=== PATIENT | female | born 1935 | race Caucasian/White ===

== ENCOUNTER 2016-08-19 05:24 | Emergency (ER) | payer MEDICARE, SELFPAY ==
--- NOTE | 2016-08-19 06:15 | EDM.PDOC ---
ED HPI SEIZURE COMPLAINT <Nic Talley - Last Filed: 08/19/16 10:21> - General Source of Information: Reports: Patient, Family (Son), RN notes reviewed History Limitations: Reports: No limitations <Aayush Campbell - Last Filed: 08/19/16 19:12> - General Chief Complaint: Syncope Stated Complaint: [facility] Time Seen by Provider: 08/19/16 05:29 - History of Present Illness INITIAL COMMENTS - FREE TEXT/NARRATIVE: The patient states that she underwent a bronchoscopy with lung biopsy yesterday , 08/18/[address] Choudhury at [facility], in order to determine the type of lung cancer that she has. The patient was kept NPO after midnight, 2016. She had a normal dinner last night. Around 05:00 this morning, the patient had to go to the bathroom. She removed her oxygen, which she usually takes at 2L per NC continuously. She replaced her oxygen when she left the bathroom, but on her way back, she states that she felt confused. As she approached the couch, she semi-sat, semi-fell onto the couch, and was then unresponsive for about 5 minutes. EMS was called, however, the police arrived first. The patient awoke when her name was called by the police. She has been neurologically normal since. Here in the ED, the patient desaturates to 84% on room air, but with no mental status changes or neurologic deficits. The patient was returned to 2L per NC, resulting in an SpO2 of 97%. (Aayush Campbell) - Related Data Allergies/ADRs: Allergies Allergy/AdvReac Type Severity Reaction Status Date / Time shellfish derived Allergy Severe Airway Verified 12/21/14 14:52 Tightness egg Allergy Itching Verified 12/21/14 14:52 ciprofloxacin AdvReac Syncope Verified 12/21/14 14:52 escitalopram oxalate AdvReac Syncope Verified 12/21/14 14:52 [From Lexapro] yogart Allergy Severe Swelling Uncoded 12/21/14 14:52 A&W root beer Allergy Hives Uncoded 12/21/14 14:52 oxalate Allergy Other Uncoded 12/21/14 14:43 Home Meds: Home Meds Albuterol/Ipratropium [Combivent Respimat] 20 - 100 mcg INH QID 12/21/14 [ History] Ascorbic Acid [Vitamin C] 1 tab PO DAILY 12/21/14 [History] Aspirin [Halfprin] 81 mg PO BRK 12/21/14 [History] Budesonide [Pulmicort] 0.5 - 2 mg INH BID 12/21/14 [History] Multivitamin [Multivitamins] 1 tab PO DAILY 12/21/14 [History] Sertraline [Zoloft] 50 mg PO DAILY 12/21/14 [History] Vitamin E (dl, acetate) [Vitamin E] 1 cap PO DAILY 12/21/14 [History] Albuterol [Proventil Neb Soln] 1 ampule NEB TID 08/19/16 [History] Ergocalciferol (Vitamin D2) [Vitamin D] 400 unit PO DAILY 08/19/16 [History] Ferrous Sulfate [Iron] 325 mg PO DAILY 08/19/16 [History] Past Medical History Cardiovascular History: Reports: Heart Failure (untreated) Respiratory History: Reports: COPD Musculoskeletal History: Reports: Osteoarthritis Neurological History: Reports: CVA (lacunar infarcts) 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, Other (see below) (Epiglottis cancer) - Past Surgical History HEENT Surgical History: Reports: Tonsillectomy Other Cardiovascular Surgeries/Procedures: Prior cardiac arrest during labor and delivery Respiratory Surgical History: Reports: Lung Biopsies (08/18/2016) GI Surgical History: Reports: Appendectomy Female Surgical History: Reports: D&C (x 2 or 3), Tubal ligation <Aayush Campbell - Last Filed: 08/19/16 19:12> Social & Family History - Family History Family Medical History: Noncontributory - Tobacco Use Smoking Status *Q: Former Smoker Tobacco Use Within Last Twelve Months: No Years of Tobacco use: 45 Packs/Tins Daily: 0.8 Used Tobacco, but Quit: Yes Month Tobacco Last Used: 06/13/2008 Second Hand Smoke Exposure: Yes - Alcohol Use Alcohol Use History: No - Recreational Drug Use Recreational Drug Use: No - Living Situation & Occupation Living situation: Reports: , assisted living ([facility]) Occupation: retired <Aayush Campbell - Last Filed: 08/19/16 19:12> ED ROS GENERAL - Review of Systems Review Of Systems: See Below Constitutional: Reports: no symptoms HEENT: Reports: No symptoms Respiratory: Reports: No Symptoms Cardiovascular: Reports: No symptoms Endocrine: Reports: no symptoms GI/Abdominal: Reports: No symptoms : Reports: no symptoms Musculoskeletal: Reports: no symptoms Skin: Reports: no symptoms Neurological: Reports: No Symptoms Psychiatric: Reports: No symptoms Hematologic/Lymphatic: Reports: no symptoms Immunologic: Reports: no symptoms <Aayush Campbell - Last Filed: 08/19/16 19:12> - Physical Exam Exam: See Below Exam Limited By: No limitations General Appearance: alert, WD/WN, no apparent distress Eye Exam: bilateral eye: EOMI, other (cataracts) Ears: normal external exam, hearing grossly normal Nose: normal inspection, no blood Throat/Mouth: Normal inspection, Normal lips, Normal voice, No airway compromise Head Exam: atraumatic, normocephalic Neck: normal inspection, full range of motion Respiratory/Chest: no respiratory distress, lungs clear, normal breath sounds, no accessory muscle use Cardiovascular: normal peripheral pulses, regular rate, rhythm, no gallop, no JVD, no murmur, no rub GI/Abdominal: normal bowel sounds, soft, non tender, no organomegaly, no distention, no abnormal bruit, no mass (Female) Exam: Deferred Rectal (Female) Exam: Deferred Neuro Exam (Abbreviated): alert, oriented, CN II-XII intact, normal cognition, no motor/sensory deficits Back Exam: normal inspection, full range of motion, NT Extremities: normal inspection, normal range of motion, no pedal edema, normal capillary refill Psychiatric: normal affect Skin Exam: Warm, Dry, Intact, Normal color, No rash <Aayush Campbell - Last Filed: 08/19/16 19:12> EKG INTERPRETATION EKG Date: 08/19/16 Time: 06:21 Rhythm: NSR Rate (beats/min): 91 [place]: normal P-wave: present QRS: normal ST-T: normal QT: normal Comparison: NA - no prior EKG <Aayush Campbell - Last Filed: 08/19/16 19:12> Course <Nic Talley - Last Filed: 08/19/16 10:21> <Aayush Campbell - Last Filed: 08/19/16 19:12> - Vital Signs Last Recorded V/S: Last Vital Signs Temp 36.8 C 08/19/16 05:36 Pulse 91 08/19/16 10:45 Resp 16 08/19/16 10:45 BP 101/42 L 08/19/16 10:45 Pulse Ox 98 08/19/16 10:45 Orthostatic Blood Pressure [ 107/72 Standing] Orthostatic Blood Pressure [ 125/59 Sitting] Orthostatic Blood Pressure [ 109/55 Supine] (Nic Talley) (Aayush Campbell) - Orders/Labs/Meds Orders: Active Orders 24 hr Category Date Time Status EKG Documentation Completion [RC] STAT Care 08/19/16 06:00 Active Orthostatic Vital Signs [RC] STAT Care 08/19/16 06:00 Active Orthostatic Vital Signs [RC] STAT Care 08/19/16 07:47 Active RT Aerosol Therapy [RC] ASDIRECTED Care 08/19/16 10:23 Active (Nic Talley) (Aayush Campbell) Labs: Laboratory Tests 08/19/16 08/19/16 08/19/16 Range/Units 06:21 06:21 06:21 WBC 10.00 (3.98-10.04) K/mm3 RBC 3.36 L (3.98-5.22) M/mm3 Hgb 10.2 L (11.2-15.7) gm/L Hct 32.8 L (34.1-44.9) % MCV 97.6 H (79.4-94.8) fl MCH 30.4 (25.6-32.2) pg MCHC 31.1 L (32.2-35.5) g/dl RDW Std Deviation 47.8 H (36.4-46.3) fL Plt Count 283 (182-369) K/mm3 MPV 8.7 L (9.4-12.3) fl Neutrophils % (Manual) 77 H (40-60) % Band Neutrophils % 9 (0-10) % Lymphocytes % (Manual) 8 L (20-40) % Atypical Lymphs % 0 % Monocytes % (Manual) 4 (2-10) % Eosinophils % (Manual) 1 (0.7-5.8) % Basophils % (Manual) 1 (0.1-1.2) Platelet Estimate Adequate RBC Morph Comment Normal PT 9.8 (8.0-13.0) SECONDS INR 0.90 APTT 29 (22-36) SECONDS D-Dimer, Quantitative 0.95 H (0.19-0.59) mg/L Sodium 136 (136-145) mEq/L Potassium 5.0 (3.5-5.1) mEq/L Chloride 101 (98-107) mEq/L Carbon Dioxide 34 H (21-32) mEq/L Anion Gap 6.0 (5-15) BUN 24 H (7-18) mg/dL Creatinine 1.3 H (0.55-1.02) mg/dL Est Cr Clr Drug Dosing 26.91 mL/min Estimated GFR (MDRD) 40 (>60) mL/min BUN/Creatinine Ratio 18.5 H (14-18) Glucose 137 H (83-115) mg/dL Calcium 8.8 (8.5-10.1) mg/dL Magnesium 2.0 (1.8-2.4) mg/dl Total Bilirubin 0.2 (0.2-1.0) mg/dL AST 26 (15-37) U/L ALT 37 (14-59) U/L Alkaline Phosphatase 149 H (46-116) U/L Troponin I < 0.017 (0.00-0.056) ng/mL Total Protein 6.6 (6.4-8.2) g/dl Albumin 2.7 L (3.4-5.0) g/dl Globulin 3.9 gm/dL Albumin/Globulin Ratio 0.7 L (1-2) Urine Color (Yellow) Urine Appearance (Clear) Urine pH (5.0-8.0) Ur Specific Martin (1.005-1.030) Urine Protein (Negative) Urine Glucose (UA) (Negative) Urine Ketones (Negative) Urine Occult Blood (Negative) Urine Nitrite (Negative) Urine Bilirubin (Negative) Urine Urobilinogen (0.2-1.0) Ur Leukocyte Esterase (Negative) Urine RBC (0-5) /hpf Urine WBC (0-5) /hpf Ur Epithelial Cells (0-5) /hpf Urine Bacteria (FEW) /hpf Urine Mucus (FEW) /hpf 08/19/16 Range/Units 07:39 WBC (3.98-10.04) K/mm3 RBC (3.98-5.22) M/mm3 Hgb (11.2-15.7) gm/L Hct (34.1-44.9) % MCV (79.4-94.8) fl MCH (25.6-32.2) pg MCHC (32.2-35.5) g/dl RDW Std Deviation (36.4-46.3) fL Plt Count (182-369) K/mm3 MPV (9.4-12.3) fl Neutrophils % (Manual) (40-60) % Band Neutrophils % (0-10) % Lymphocytes % (Manual) (20-40) % Atypical Lymphs % % Monocytes % (Manual) (2-10) % Eosinophils % (Manual) (0.7-5.8) % Basophils % (Manual) (0.1-1.2) Platelet Estimate RBC Morph Comment PT (8.0-13.0) SECONDS INR APTT (22-36) SECONDS D-Dimer, Quantitative (0.19-0.59) mg/L Sodium (136-145) mEq/L Potassium (3.5-5.1) mEq/L Chloride (98-107) mEq/L Carbon Dioxide (21-32) mEq/L Anion Gap (5-15) BUN (7-18) mg/dL Creatinine (0.55-1.02) mg/dL Est Cr Clr Drug Dosing mL/min Estimated GFR (MDRD) (>60) mL/min BUN/Creatinine Ratio (14-18) Glucose (83-115) mg/dL Calcium (8.5-10.1) mg/dL Magnesium (1.8-2.4) mg/dl Total Bilirubin (0.2-1.0) mg/dL AST (15-37) U/L ALT (14-59) U/L Alkaline Phosphatase (46-116) U/L Troponin I (0.00-0.056) ng/mL Total Protein (6.4-8.2) g/dl Albumin (3.4-5.0) g/dl Globulin gm/dL Albumin/Globulin Ratio (1-2) Urine Color Yellow (Yellow) Urine Appearance Slt cloudy H (Clear) Urine pH 7.0 (5.0-8.0) Ur Specific Martin 1.020 (1.005-1.030) Urine Protein 2+ H (Negative) Urine Glucose (UA) Trace H (Negative) Urine Ketones Negative (Negative) Urine Occult Blood Negative (Negative) Urine Nitrite Negative (Negative) Urine Bilirubin Negative (Negative) Urine Urobilinogen 0.2 (0.2-1.0) Ur Leukocyte Esterase Negative (Negative) Urine RBC Not seen (0-5) /hpf Urine WBC 0-5 (0-5) /hpf Ur Epithelial Cells 0-5 (0-5) /hpf Urine Bacteria Many H (FEW) /hpf Urine Mucus Not seen (FEW) /hpf (Nic Talley) Meds: Medications Discontinued Medications Generic Name Dose Route Start Last Admin Trade Name Freq PRN Reason Stop Dose Admin Albuterol/Ipratropium 3 ml 08/19/16 10:23 08/19/16 10:32 Duoneb 3.0-0.5 Mg/3 Ml NEB 08/19/16 10:24 3 ml ONETIME ONE Administration Sodium Chloride 500 mls @ 1,000 mls/hr 08/19/16 06:57 08/19/16 07:18 Normal Saline IV 08/19/16 07:26 1,000 mls/hr .BOLUS ONE Administration Sodium Chloride 100 mls @ 60 mls/hr 08/19/16 07:45 08/19/16 08:03 Normal Saline IV 60 mls/hr ASDIRECTED FIDE Administration Sodium Chloride 1,000 mls @ 100 mls/hr 08/19/16 08:15 Normal Saline IV ASDIRECTED FIDE Iopamidol 100 ml 08/19/16 07:43 08/19/16 08:02 Isovue-370 (76%) IVPUSH 08/19/16 07:44 100 ml ONETIME ONE Administration Sodium Chloride 10 ml 08/19/16 07:43 08/19/16 08:02 Saline Flush FLUSH 08/19/16 07:44 10 ml ONETIME ONE Administration (Nic Talley) - Radiology Interpretation Free Text/Narrative:: Portable chest radiograph does not appear to demonstrate any acute changes. Cardiac silhouette is within normal limits. No pulmonary vascular congestion. There is likely a small right-sided pleural effusion, improved from prior chest radiograph dated 12/27/2014. No focal infiltrate. No pneumothorax. Hyperinflation and bilateral diaphragmatic flattening consistent with COPD noted. Formal read per the Radiologist pending. (Aayush Campbell) - Re-Assessments/Exams Free Text/Narrative Re-Assessment/Exam: 08/19/16 06:57 The patient is orthostatic. I will order an IV fluid bolus. 08/19/16 07:30 The patient's D-dimer has returned modestly elevated at 0.95. I discussed this with the patient and her grandson, and they would like to proceed with a CTA of the chest to rule out PE. 08/19/16 07:[address] Talley, and care of the patient turned over to him at this time, for change of shift. Urinalysis, CTA/chest results, repeat orthostatics after IV fluid bolus, and disposition pending. (Aayush Campbell) Free Text/Narrative Re-Assessment/Exam: 08/19/16 08:48 CT pulmonary angiogram has been completed. He does not reveal any evidence of pulmonary emboli. There are several small lymph nodes noted within the paratracheal region which remain within normal limits in size. Slightly large subcarinal lymph node seen measuring 2.0 cm. Enlarged left hilar lymph node seen measuring 2.1 cm one. There is a small right-sided pleural effusion which is unchanged from previous. Multiple subpleural nodules are seen in within the left chest left upper lung nodule measures 1 cm nodule within the superior segment of the left lower lung measures 1.4 cm. Smaller nodule noted within the lingula measuring 7 mm 2 adjacent smaller nodular densities seen more inferiorly within the lingula measuring 7 mm and smaller. This is suggestive of metastatic carcinoma. Biopsy was performed yesterday by bronchoscopy. At this time there is no evidence of DVT and she will be allowed home. We suspect she became hypoxic hypoxic and she took off her oxygen before she went into the bathroom and collapsed on the way out of the bathroom onto the chair without getting hurt. Probably developed transient hypercarbia to cause confusion. She has received IV fluids here. Although the nurses however up walking and see how she feels. 08/19/16 10:21 patient ate all her breakfast. She desaturates quite quickly on minimal exertion such as up to the bathroom she was down to 86% but when she is lying she's close to 100% on 2 L by nasal cannula. She'll be discharged home in the care of her son. No changes made to medications at this time (Nic Talley) Departure - Departure Time of Disposition: 10:22 Condition: fair <Nic Talley - Last Filed: 08/19/16 10:21> <Aayush Campbell - Last Filed: 08/19/16 19:12> - Departure Disposition: Home, Self-Care 01 Clinical Impression: Syncope due to orthostatic hypotension Instructions: Orthostatic Hypotension, Near-Syncope, [id number] Referrals: Deonte Candelario MD [Primary Care Provider] - Forms: ED Department Discharge Additional Instructions: Evaluation in the emergency department today in regards to syncopal event that occurred early this morning. As you're aware you got up to use the washroom. Oxygen off with little in the bathroom and then upon returning to the living room he collapsed in the chair with reported loss of consciousness transiently. It appears the cause of this was most likely due to a drop in blood pressure that occurred while and standing complicated by being off oxygen for short period of time. Due to recent bronchoscopy procedure done yesterday percussion a CT scan of the lungs was carried out today with contrast media to make sure that there was no problems. No blood clots within the lungs were identified or air leaks from the biopsy. Therefore at this time you're treated with intravenous fluids to provide rehydration and bring her blood pressure back up to normal. On reassessment you're no longer showing evidence of drop in blood pressure when you stand. At this time no changes are made to be made to medications. Will put superstructure position as planned. Trying to maintain plenty of fluids such as Gatorade or Powerade today and tomorrow.
[2016-08-19] MEDS ORDERED: Sodium Chloride 0.9% 500 ML IV ONE (06:57)
--- NOTE | 2016-08-19 07:36 | CR ---
Chest: Portable view of the chest was obtained. Comparison: Previous chest x-ray of 12/27/14. Heart size is normal. Mild tortuosity of the thoracic aorta is seen. Minimal blunting of the right lateral costophrenic angle is seen most likely due to slight scarring. Mild parenchymal density seen within the right lung base. Lungs otherwise are clear. No pneumothorax is seen. Bony structures are osteopenic. Impression: 1. Mild density within the right lung base. Uncertain if this is represents change from aspiration, pneumonia or other etiology. Minimal blunting of the right lateral costophrenic angle is seen most likely chronic. 2. Nothing acute is otherwise seen on portable chest x-ray. Diagnostic code #3
[2016-08-19] MEDS ORDERED: Iopamidol 755 Mg/ML 100 ML Bottle IVPUSH ONE (07:43)
[2016-08-19] MEDS ORDERED: Sodium Chloride 0.9% 10 ML Syringe FLUSH ONE (07:43)
[2016-08-19] MEDS ORDERED: Sodium Chloride 0.9% 100 ML IV SCH (07:45)
[2016-08-19] MEDS ORDERED: Sodium Chloride 0.9% 1,000 ML IV SCH (08:15)
--- NOTE | 2016-08-19 08:40 | CT ---
CT chest Technique: Multiple axial sections were obtained from through the chest. Intravenous contrast was utilized. Study has been performed as a pulmonary angiogram protocol. Comparison: Previous noncontrast chest CT of 11/08/09. Findings: Small right sided pleural effusion is seen with trace left-sided pleural effusion. Enlarged left hilar lymph node is seen measuring 2.1 cm. Several smaller lymph nodes are noted within the paratracheal region which remain within normal limits in size. Slightly enlarged subcarinal lymph node is seen measuring 2.0 cm. Pulmonary arteries are well-opacified. No filling defects are seen to indicate pulmonary embolism. Aorta shows atherosclerotic change without aneurysmal dilatation. No pericardial thickening is seen. Low-density lesion noted within the mid left kidney which is partially included on the inferior cuts measuring 2.5 cm which is felt compatible with a cyst. Nonobstructing stone noted within the right kidney. Diffuse emphysematous changes are seen throughout both lungs. Multiple subpleural nodules are seen within the left chest. Left upper lung nodule measures 1 cm. Nodule within the superior segment of the left lower lung measures 1.4 cm. Smaller nodule noted within the lingula measuring 7 mm. 2 adjacent small nodular density seen more inferiorly within the lingula measuring 7 mm and smaller. Additional nodule is seen in a subpleural location within the lingula measuring 6 mm. Small subpleural nodule noted more inferiorly within the left lung base measuring 6 mm. Additional nodule is seen within the posterior costophrenic angle of the left lung base measuring 1.1 cm. Interstitial changes are seen within the right lung base and right middle lobe which are most likely due to fibrosis. No discrete nodule is noted on the right side. Bone window settings were reviewed which appear within normal limits for the patient's age. Impression: 1. No findings of pulmonary embolism. 2. Enlarged left hilar lymph node. Mildly enlarged subcarinal lymph node. Multiple left-sided subpleural nodules. Difficult to exclude metastatic disease. 3. Small right sided pleural effusion and trace left-sided pleural effusion. 4. Interstitial change which is felt compatible with fibrosis within the right lung base and lesser change within the right middle lobe. 5. Diffuse emphysematous change. Diagnostic code #9
[2016-08-19] MEDS ORDERED: Albuterol/Ipratropium 3.0-0.5 MG/3 ML Neb Soln NEB ONE (10:23)
[2016-08-19 11:07] VITALS: BP 101/42
== END 2016-08-19 11:05 | disposition home or self-care (01) ==
LOC: JD.ED 05:24
DX: I95.1 Orthostatic hypotension (principal); R55 Syncope and collapse; Z88.8 Allergy status to other drugs, medicaments and biological substances; Z91.012 Allergy to eggs; Z88.1 Allergy status to other antibiotic agents; Z91.013 Allergy to seafood; Z91.018 Allergy to other foods; Z79.82 Long term (current) use of aspirin; Z79.899 Other long term (current) drug therapy; I50.9 Heart failure, unspecified; J44.9 Chronic obstructive pulmonary disease, unspecified; M19.90 Unspecified osteoarthritis, unspecified site; Z86.73 Personal history of transient ischemic attack (TIA), and cerebral infarction without residual deficits; C34.90 Malignant neoplasm of unspecified part of unspecified bronchus or lung; Z99.81 Dependence on supplemental oxygen; Z87.891 Personal history of nicotine dependence
CPT/HCPCS: 36415; 71010; 71275; 80053; 81001; 83735; 84484; 85025; 85379; 85610; 85730; 93005; 94664; 96360; 96361; 99285; J7030; J7040; J7050; Q9967

== ENCOUNTER 2018-09-01 05:45 | Emergency (ER) | payer MEDICARE, OTHER ==
[2018-09-01 06:16] VITALS: BP 113/77
--- NOTE | 2018-09-01 06:25 | EDM.PDOC ---
ED HPI GENERAL MEDICAL PROBLEM - General Chief Complaint: Neuro Symptoms/Deficits Stated Complaint: [facility] Time Seen by Provider: 09/01/18 05:48 Source of Information: Reports: Patient, Family, RN Notes Reviewed History Limitations: Reports: No Limitations - History of Present Illness INITIAL COMMENTS - FREE TEXT/NARRATIVE: A stroke alert was called on this patient from the field. The patient states that went to use the bathroom around 03:00 to 04:00 this morning, and when she got up, the room began spinning, causing the patient to fall to the floor. She states that she skinned her left upper arm, but is otherwise uninjured. Her vertigo symptoms resolved around 06:00, but during that interval, her symptoms abated if she remained still, but got worse if she moved. She denies having associated nausea. The patient states that she has had similar symptoms about twice a year since the 1960s or 1970s. She is not sure what the diagnosis is, but states that she has been told that it may be related to her having a urinary tract infection or decreased oxygen saturation. The patient has a history of COPD, and is on 2 L of supplemental oxygen continuously. The patient denies recent fever, chills, chest pain, palpitations, shortness of breath, nausea, vomiting, constipation, diarrhea, or urinary symptoms. The patient's PCP is Dr. Irwin. Her Oncologist is Dr. Hernandez in [place], [place]. Her Neurologist is Dr. Ashton in [place]. Her Electric Scoop Operator is Dr. Choudhury. - Related Data Allergies Allergy/AdvReac Type Severity Reaction Status Date / Time shellfish derived Allergy Severe Airway Verified 03/25/18 01:46 Tightness egg Allergy Itching Verified 03/25/18 01:46 ciprofloxacin AdvReac Syncope Verified 03/25/18 01:46 escitalopram oxalate AdvReac Syncope Verified 03/25/18 01:46 [From Lexapro] yogart Allergy Severe Swelling Uncoded 03/25/18 01:46 A&W root beer Allergy Hives Uncoded 03/25/18 01:46 oxalate Allergy Other Uncoded 03/25/18 01:46 Home Meds: Home Meds Albuterol/Ipratropium [Combivent Respimat] 20 - 100 mcg INH QID 12/21/14 [ History] Ascorbic Acid [Vitamin C] 1 tab PO DAILY 12/21/14 [History] Budesonide [Pulmicort] 0.5 - 2 mg INH BID 12/21/14 [History] Multivitamin [Multivitamins] 1 tab PO DAILY 12/21/14 [History] Sertraline [Zoloft] 25 mg PO DAILY 12/21/14 [History] Vitamin E (dl, acetate) [Vitamin E] 1 cap PO DAILY 12/21/14 [History] Albuterol [Proventil Neb Soln] 1 ampule NEB TID 08/19/16 [History] Ergocalciferol (Vitamin D2) [Vitamin D] 400 unit PO DAILY 08/19/16 [History] Ferrous Sulfate [Iron] 325 mg PO ASDIRECTED 08/19/16 [History] Cyanocobalamin (Vitamin B-12) [Vitamin B-12] 1 tab PO DAILY 03/25/18 [History] Past Medical History Cardiovascular History: Reports: Heart Failure Respiratory History: Reports: COPD (on O2 2L/min continuously) Genitourinary History: Reports: Chronic Renal Insuffiency, Urinary Incontinence 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: Musculoskeletal History: Reports: Osteoarthritis 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, 2006) 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 (s/p CTx), Other (See Below) ( Epiglottis carcinoma, s/p CTx + RTx) - Infectious Disease History Infectious Disease History: Reports: Chicken Pox, Influenza, Measles, Mumps, Scarlet Fever, Other (See Below) Other Infectious Disease History: flu - Past Surgical History HEENT Surgical History: Reports: Cataract Surgery, Oral Surgery (edentulous), Tonsillectomy Other Cardiovascular Surgeries/Procedures: Prior cardiac arrest during labor and delivery Respiratory Surgical History: Reports: Lung Biopsies GI Surgical History: Reports: Appendectomy Female Surgical History: Reports: D&C (x 3), Tubal Ligation Social & Family History - Family History Family Medical History: Noncontributory - Tobacco Use Smoking Status *Q: Former Smoker Years of Tobacco use: 40 Packs/Tins Daily: 1 Month/Year Tobacco Last Used: Quit May 2008 - Caffeine Use Caffeine Use: Reports: None - Alcohol Use Alcohol Use History: Yes Alcohol Use Frequency: Rarely - Recreational Drug Use Recreational Drug Use: No - Living Situation & Occupation Living situation: Reports: , Assisted Living ([facility], in [place]) Occupation: Retired ED ROS GENERAL - Review of Systems Review Of Systems: ROS reveals no pertinent complaints other than HPI. ED EXAM, GENERAL - Physical Exam Exam: See Below Exam Limited By: No Limitations General Appearance: Alert, WD/WN, No Apparent Distress Eye Exam: Bilateral Eye: EOMI, Normal Inspection Ears: Normal External Exam, Hearing Grossly Normal Nose: Normal Inspection Throat/Mouth: Normal Inspection, Normal Lips, Normal Voice, No Airway Compromise Head: Atraumatic, Normocephalic Neck: Normal Inspection, Full Range of Motion Respiratory/Chest: No Respiratory Distress, Lungs Clear, Normal Breath Sounds, No Accessory Muscle Use Cardiovascular: Normal Peripheral Pulses, Regular Rate, Rhythm, No Edema, No Gallop, No JVD, No Murmur, No Rub Peripheral Pulses: 4+: Radial (L), Radial (R) GI/Abdominal: Normal Bowel Sounds, Soft, Non-Tender, No Organomegaly, No Distention, No Abnormal Bruit, No Mass (Female) Exam: Deferred Rectal (Female) Exam: Deferred Back Exam: Normal Inspection, Full Range of Motion, NT Extremities: Normal Inspection, Normal Range of Motion, No Pedal Edema, Normal Capillary Refill Neurological: Alert, Oriented, Normal Cognition, No Motor/Sensory Deficits, Other (Neither vertigo nor nystagmus induced with modified Muldrow-Hallpike maneuver ) Psychiatric: Normal Affect Skin Exam: Warm, Dry, Intact, Normal Color, No Rash EKG INTERPRETATION EKG Date: 09/01/18 Time: 05:57 Rhythm: Other (Sinus tachycardia) Rate (Beats/Min): 103 [place]: Normal P-Wave: Present QRS: Normal ST-T: Normal QT: Normal Comparison: No Change (08/19/2016) Course - Vital Signs Last Recorded V/S: Last Vital Signs Temp 37.4 C 09/01/18 05:50 Pulse 97 09/01/18 05:50 Resp 18 09/01/18 05:50 BP 113/77 09/01/18 05:50 Pulse Ox 94 L 09/01/18 05:50 - Orders/Labs/Meds Orders: Active Orders 24 hr Category Date Time Status EKG 12 Lead [EKG Documentation Completion] [RC] STAT Care 09/01/18 06:03 Active Head wo Cont [CT] Stat Exams 09/01/18 05:51 Taken CULTURE URINE [RM] Stat Lab 09/01/18 06:05 Received Labs: Laboratory Tests 09/01/18 09/01/18 09/01/18 Range/Units 06:31 06:31 06:31 WBC 14.10 H (3.98-10.04) K/mm3 RBC 3.42 L (3.98-5.22) M/mm3 Hgb 10.7 L (11.2-15.7) gm/L Hct 33.5 L (34.1-44.9) % MCV 98.0 H (79.4-94.8) fl MCH 31.3 (25.6-32.2) pg MCHC 31.9 L (32.2-35.5) g/dl RDW Std Deviation 48.1 H (36.4-46.3) fL Plt Count 184 (182-369) K/mm3 MPV 9.0 L (9.4-12.3) fl Neut % (Auto) 88.9 H (34.0-71.1) % Lymph % (Auto) 5.7 L (19.3-51.7) % [place] % (Auto) 4.9 (4.7-12.5) % Eos % (Auto) 0.3 L (0.7-5.8) Baso % (Auto) 0.1 (0.1-1.2) % Neut # (Auto) 12.54 H (1.56-6.13) K/mm3 Lymph # (Auto) 0.80 L (1.18-3.74) K/mm3 [place] # (Auto) 0.69 H (0.24-0.36) K/mm3 Eos # (Auto) 0.04 (0.04-0.36) K/mm3 Baso # (Auto) 0.01 (0.01-0.08) K/mm3 Manual Slide Review Abnormal smear Sodium 131 L (136-145) mEq/L Potassium 4.3 (3.5-5.1) mEq/L Chloride 96 L (98-107) mEq/L Carbon Dioxide 30 (21-32) mEq/L Anion Gap 9.3 (5-15) BUN 25 H (7-18) mg/dL Creatinine 1.1 H (0.55-1.02) mg/dL Est Cr Clr Drug Dosing 30.78 mL/min Estimated GFR (MDRD) 48 (>60) mL/min BUN/Creatinine Ratio 22.7 H (14-18) Glucose 131 H (83-115) mg/dL Calcium 9.1 (8.5-10.1) mg/dL Total Bilirubin 0.4 (0.2-1.0) mg/dL AST 24 (15-37) U/L ALT 28 (14-59) U/L Alkaline Phosphatase 130 H (46-116) U/L Total Protein 7.2 (6.4-8.2) g/dl Albumin 3.0 L (3.4-5.0) g/dl Globulin 4.2 gm/dL Albumin/Globulin Ratio 0.7 L (1-2) Urine Color Yellow (Yellow) Urine Appearance Clear (Clear) Urine pH 7.0 (5.0-8.0) Ur Specific [place] 1.020 (1.005-1.030) Urine Protein 2+ H (Negative) Urine Glucose (UA) Negative (Negative) Urine Ketones Negative (Negative) Urine Occult Blood Negative (Negative) Urine Nitrite Negative (Negative) Urine Bilirubin Negative (Negative) Urine Urobilinogen 0.2 (0.2-1.0) Ur Leukocyte Esterase Negative (Negative) Urine RBC Not seen (0-5) /hpf Urine WBC 5-10 H (0-5) /hpf Urine WBC Clumps Few (NOT SEEN) /hpf Ur Epithelial Cells Not seen (0-5) /hpf Urine Bacteria Many H (FEW) /hpf Urine Mucus Not seen (FEW) /hpf - Re-Assessments/Exams Free Text/Narrative Re-Assessment/Exam: 09/01/18 06:24 CT of the head without contrast is read by Brando as "ASPECTS ([place] Stroke Program Early CT Score) is 10" 09/01/18 07:09 By history, the patient was suffering from BPPV earlier this morning, which has resolved. I was unable to induce either vertigo or nystagmus with positional changes. The patient's urinalysis is remarkable for 5-10 WBCs, although leukocyte esterase negative, and many bacteria with no epithelial cells. The patient is asymptomatic, however. The current guidelines recommend treatment for culture positive UTIs, but not asymptomatic bacteriuria based on urinalyses. I have therefore ordered a urine culture, but I am not going to start her on an antibiotic at this time. 09/01/18 07:31 Test results discussed with the patient and her family. I will discharge her home. No new prescriptions. I would like her to follow-up with Dr. Irwin this coming 09/05/2018, to check on her urine culture results. Departure - Departure Time of Disposition: 07:32 Disposition: Home, Self-Care 01 Condition: Good Clinical Impression: BPPV (benign paroxysmal positional vertigo), Asymptomatic bacteriuria - Discharge Information *PRESCRIPTION DRUG MONITORING PROGRAM REVIEWED*: Not Applicable *COPY OF PRESCRIPTION DRUG MONITORING REPORT IN PATIENT KAIDEN: Not Applicable Referrals: Deonte Candelario MD [Primary Care Provider] - Ani Hernadnez MD [Ordering Only Provider] - Raffy Ashton MD [Ordering Only Provider] - Kailash Choudhury Om, MD [Ordering Only Provider] - Forms: ED Department Discharge Additional Instructions: You were seen in the emergency room after you developed the sensation of the room spinning after getting up to go to the bathroom. Workup in the ER included blood work, a urinalysis, a CT scan of your head, and an ECG. The CT scan of your head was negative. You have not suffered a stroke. Your urinalysis shows some bacteria and white blood cells. You may have a urinary tract infection. The remainder of your workup was unremarkable. Based on your history, physical examination, and ER tests, your symptoms of the room spinning were most likely due to benign paroxysmal positional vertigo (BPPV ) = the blockage of one of the tiny tubes in one of your inner ears. A sample of your urine has been sent for culture. We recommend that you follow- up with your PCP, Dr. Irwin, this coming 09/05/2018, to check on the urine culture results, to see if you should be on an antibiotic. If any other problems, please do not hesitate to return to the ER. - My Orders Last 24 Hours: My Active Orders 09/01/18 05:51 Head wo Cont [CT] Stat 09/01/18 06:03 EKG 12 Lead [EKG Documentation Completion] [RC] STAT 09/01/18 06:05 CULTURE URINE [RM] Stat - Assessment/Plan Last 24 Hours: My Active Orders 09/01/18 05:51 Head wo Cont [CT] Stat 09/01/18 06:03 EKG 12 Lead [EKG Documentation Completion] [RC] STAT 09/01/18 06:05 CULTURE URINE [RM] Stat
--- NOTE | 2018-09-01 14:55 | CT ---
Head CT Technique: Multiple axial sections through the brain were obtained. Intravenous contrast was not utilized. Comparison: Prior MRI brain of 02/27/14. Findings: Ventricles along with basal cisterns and sulci over the convexities are mildly prominent. Diminished density is noted within the periventricular and subcortical white matter compatible with small vessel ischemic demyelination change. 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 No other abnormal parenchymal densities are seen. No evidence of intracranial hemorrhage. No midline shift or mass effect is seen. Bone window settings were reviewed which show no acute calvarial abnormality. Mucosal thickening is noted within the left side of the sphenoid sinus. Sinuses are otherwise clear. No acute calvarial abnormality is seen. Impression: 1. Senescent change as noted above. No acute intracranial abnormality is identified. 2. Slight mucosal thickening within the left side of the sphenoid sinus which is most likely chronic. Diagnostic code #2 I agree with preliminary report issued by [facility] ([facility] report finalized on 09/01/18, 7:18 AM Central Time.
== END 2018-09-01 08:09 | disposition home or self-care (01) ==
LOC: JD.ED 05:45
DX: H81.10 Benign paroxysmal vertigo, unspecified ear (principal); R82.71 Bacteriuria; J44.9 Chronic obstructive pulmonary disease, unspecified; Z99.2 Dependence on renal dialysis; Z87.891 Personal history of nicotine dependence; Z79.899 Other long term (current) drug therapy; Z91.013 Allergy to seafood
CPT/HCPCS: 36415; 70450; 70450-26; 80053; 81001; 85025; 87086; 87088; 87186; 93005; 93010; 99284; 99285-25

== ENCOUNTER 2018-09-01 17:23 | Inpatient (IN) | payer MEDICARE, OTHER ==
[2018-09-01] MEDS ORDERED: Sodium Chloride 0.9% 10 ML Syringe FLUSH PRN (17:53)
[2018-09-01] MEDS ORDERED: Albuterol/Ipratropium 3.0-0.5 MG/3 ML Neb Soln NEB ONE (18:01)
--- NOTE | 2018-09-01 18:46 | EDM.PDOC ---
ED HPI GENERAL MEDICAL PROBLEM - General Chief Complaint: Lower Extremity Injury/Pain Stated Complaint: CANT WALK ON LEFT LEG Time Seen by Provider: 09/01/18 17:42 Source of Information: Reports: Patient, Family History Limitations: Reports: No Limitations - History of Present Illness INITIAL COMMENTS - FREE TEXT/NARRATIVE: The patient presents with her family for left hip pain and and low back pain. She was here early this morning for a fall. She got up to go to the bathroom and got dizzy and fell. She had weakness in both legs. She says she gets that way when she had a UTI. Her UA shows not UTI this morning. She had a CT of her head done that shows nothing acute. Her WBC was elevated at 14. She had some pain to her left hip. She went home and now she cannot bear any weight on that left leg. She also has low back pain. She has some left sided chest pain. This has happened before and her Dr feels it is chest wall pain from her bra. She has COPD and on oxygen at home. She has been more short of breath lately and having a productive cough. She denies fever or chills. She has no edema in her legs. She has no abdominal pain. She did have nausea and she vomited on the way here tonight. The nausea is gone now. Onset: Sudden Duration: Hour(s): (Early this morning) Location: Reports: Chest, Back (low), Lower Extremity, Left (hip) Quality: Reports: Sharp Severity: Moderate Improves with: Reports: Immobilization Worsens with: Reports: Movement Context: Reports: Trauma (She fell) Associated Symptoms: Reports: Chest Pain, Cough, Shortness of Breath. Denies: Fever/Chills, Headaches, Nausea/Vomiting Left Upper Leg Pain Score (Numeric/FACES): 6 - Related Data Allergies Allergy/AdvReac Type Severity Reaction Status Date / Time shellfish derived Allergy Severe Airway Verified 09/01/18 17:33 Tightness egg Allergy Itching Verified 09/01/18 17:33 ciprofloxacin AdvReac Syncope Verified 09/01/18 17:33 escitalopram oxalate AdvReac Syncope Verified 09/01/18 17:33 [From Lexapro] yogart Allergy Severe Swelling Uncoded 09/01/18 17:33 A&W root beer Allergy Hives Uncoded 09/01/18 17:33 oxalate Allergy Other Uncoded 09/01/18 17:33 Home Meds: Home Meds Albuterol/Ipratropium [Combivent Respimat] 20 - 100 mcg INH QID 12/21/14 [ History] Ascorbic Acid [Vitamin C] 1 tab PO DAILY 12/21/14 [History] Budesonide [Pulmicort] 0.5 - 2 mg INH BID 12/21/14 [History] Multivitamin [Multivitamins] 1 tab PO DAILY 12/21/14 [History] Sertraline [Zoloft] 25 mg PO DAILY 12/21/14 [History] Vitamin E (dl, acetate) [Vitamin E] 1 cap PO DAILY 12/21/14 [History] Albuterol [Proventil Neb Soln] 1 ampule NEB TID 08/19/16 [History] Ergocalciferol (Vitamin D2) [Vitamin D] 400 unit PO DAILY 08/19/16 [History] Ferrous Sulfate [Iron] 325 mg PO ASDIRECTED 08/19/16 [History] Cyanocobalamin (Vitamin B-12) [Vitamin B-12] 1 tab PO DAILY 03/25/18 [History] Past Medical History Cardiovascular History: Reports: Heart Failure Respiratory History: Reports: COPD Other Respiratory History: lung cancer in left lung-currently not active-went through chemo tx in 2017 Genitourinary History: Reports: Chronic Renal Insuffiency, Urinary Incontinence 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 BREAKER History: Reports: Other ROCK BREAKER History: Tubal Litigation Musculoskeletal History: Reports: Osteoarthritis Neurological History: Reports: TIA 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, Other (See Below) Other Oncologic History: epiglottis carcinoma - Infectious Disease History Infectious Disease History: Reports: Chicken Pox, Influenza, Measles, Mumps, Scarlet Fever, Other (See Below) Other Infectious Disease History: flu - Past Surgical History HEENT Surgical History: Reports: Cataract Surgery, Oral Surgery, Tonsillectomy Other Cardiovascular Surgeries/Procedures: Prior cardiac arrest during labor and delivery Respiratory Surgical History: Reports: Lung Biopsies GI Surgical History: Reports: Appendectomy Female Surgical History: Reports: D&C, Tubal Ligation Social & Family History - Family History Family Medical History: Noncontributory - Tobacco Use Smoking Status *Q: Former Smoker Years of Tobacco use: 30 Used Tobacco, but Quit: Yes Month/Year Tobacco Last Used: 2008 - Caffeine Use Caffeine Use: Reports: None - Living Situation & Occupation Living situation: Reports: , Assisted Living ([place], [place]) Occupation: Retired Review of Systems - Review of Systems Review Of Systems: See Below Constitutional: Reports: No Symptoms Eyes: Reports: No Symptoms Ears: Reports: No Symptoms Nose: Reports: No Symptoms Mouth/Throat: Reports: No Symptoms Respiratory: Reports: Shortness of Breath, Cough Cardiovascular: Reports: Chest Pain GI/Abdominal: Reports: Nausea, Vomiting. Denies: Abdominal Pain Genitourinary: Reports: No Symptoms Musculoskeletal: Reports: Back Pain (Low), Other (left hip pain) ED EXAM, GENERAL - Physical Exam Exam: See Below Exam Limited By: No Limitations General Appearance: Alert, No Apparent Distress Ears: Normal External Exam Nose: Normal Inspection Head: Atraumatic, Normocephalic Neck: Normal Inspection, Supple, Non-Tender Respiratory/Chest: No Respiratory Distress, Decreased Breath Sounds, Rhonchi Cardiovascular: Regular Rate, Rhythm, No Edema, No Murmur GI/Abdominal: Soft, Non-Tender, No Organomegaly, No Mass Back Exam: Other (Pain upon palpation to the low back) Extremities: Other (Moderate pain upon palpation to the left hip and pain with inernal and external rotation with good sensation and pulses distally.) EKG INTERPRETATION EKG Date: 09/01/18 Time: 17:58 Rhythm: NSR Rate (Beats/Min): 96 [place]: Normal P-Wave: Present QRS: Normal ST-T: Normal QT: Normal Course - Vital Signs Last Recorded V/S: Last Vital Signs Temp 97.9 F 09/01/18 17:33 Pulse 107 H 09/01/18 17:33 Resp 20 09/01/18 17:33 BP 132/51 L 09/01/18 17:33 Pulse Ox 92 L 09/01/18 18:02 - Orders/Labs/Meds Orders: Active Orders 24 hr Category Date Time Status Cardiac Monitoring [RC] . DIRECTED Care 09/01/18 17:53 Active EKG Documentation Completion [RC] STAT Care 09/01/18 17:54 Active Oxygen Therapy [RC] PRN Care 09/01/18 17:53 Active Peripheral IV Care [RC] . DIRECTED Care 09/01/18 17:54 Active RT Aerosol Therapy [RC] ASDIRECTED Care 09/01/18 18:02 Active Chest 1V Frontal [CR] Stat Exams 09/01/18 17:54 Taken Hip Min 2V or 3V w Pelvis Lt [CR] Stat Exams 09/01/18 17:55 Taken Lumbar Spine 2 or 3V [CR] Stat Exams 09/01/18 17:54 Taken CULTURE BLOOD [BC] Stat Lab 09/01/18 18:15 Received CULTURE BLOOD [BC] Stat Lab 09/01/18 18:25 Received MYCOPLASMA PNEUMONIAE IGM AB [CHEM] Stat Lab 09/01/18 19:24 Ordered Sodium Chloride 0.9% [Saline Flush] Med 09/01/18 17:53 Active 10 ml FLUSH ASDIRECTED PRN cefTRIAXone [Rocephin] 2 gm Med 09/01/18 19:15 Active Sodium Chloride 0.9% [Normal Saline] 100 ml IV ONETIME Blood Culture x2 Reflex Set [OM.PC] Stat Oth 09/01/18 17:55 Ordered Peripheral IV Insertion Adult [OM.PC] Stat Oth 09/01/18 17:53 Ordered Medication Orders Ceftriaxone Sodium 2 gm/ (Sodium Chloride) 100 mls @ 200 mls/hr IV ONETIME ONE Stop: 09/01/18 19:44 Last Admin: 09/01/18 19:24 Dose: 200 mls/hr Sodium Chloride (Saline Flush) 10 ml FLUSH ASDIRECTED PRN PRN Reason: Keep Vein Open Last Admin: 09/01/18 18:00 Dose: 10 ml Labs: Laboratory Tests 09/01/18 09/01/18 09/01/18 Range/Units 18:15 18:15 18:25 WBC 15.02 H (3.98-10.04) K/mm3 RBC 3.00 L (3.98-5.22) M/mm3 Hgb 9.4 L (11.2-15.7) gm/L Hct 30.0 L (34.1-44.9) % MCV 100.0 H (79.4-94.8) fl MCH 31.3 (25.6-32.2) pg MCHC 31.3 L (32.2-35.5) g/dl RDW Std Deviation 49.3 H (36.4-46.3) fL Plt Count 213 (182-369) K/mm3 MPV 9.3 L (9.4-12.3) fl Neut % (Auto) 84.7 H (34.0-71.1) % Lymph % (Auto) 9.4 L (19.3-51.7) % [place] % (Auto) 5.3 (4.7-12.5) % Eos % (Auto) 0.2 L (0.7-5.8) Baso % (Auto) 0.1 (0.1-1.2) % Neut # (Auto) 12.74 H (1.56-6.13) K/mm3 Lymph # (Auto) 1.41 (1.18-3.74) K/mm3 [place] # (Auto) 0.79 H (0.24-0.36) K/mm3 Eos # (Auto) 0.03 L (0.04-0.36) K/mm3 Baso # (Auto) 0.01 (0.01-0.08) K/mm3 Manual Slide Review Abnormal smear Sodium 134 L (136-145) mEq/L Potassium 4.1 (3.5-5.1) mEq/L Chloride 97 L (98-107) mEq/L Carbon Dioxide 30 (21-32) mEq/L Anion Gap 11.1 (5-15) BUN 30 H (7-18) mg/dL Creatinine 1.4 H (0.55-1.02) mg/dL Est Cr Clr Drug Dosing 24.18 mL/min Estimated GFR (MDRD) 36 (>60) mL/min BUN/Creatinine Ratio 21.4 H (14-18) Glucose 134 H (83-115) mg/dL Lactic Acid 1.3 (0.4-2.0) mmol/L Calcium 9.7 (8.5-10.1) mg/dL Total Bilirubin 0.5 (0.2-1.0) mg/dL AST 25 (15-37) U/L ALT 28 (14-59) U/L Alkaline Phosphatase 119 H (46-116) U/L Troponin I < 0.017 (0.00-0.056) ng/mL Total Protein 7.2 (6.4-8.2) g/dl Albumin 3.1 L (3.4-5.0) g/dl Globulin 4.1 gm/dL Albumin/Globulin Ratio 0.8 L (1-2) Meds: Medications Generic Name Dose Route Start Last Admin Trade Name Radha PRN Reason Stop Dose Admin Ceftriaxone Sodium 2 gm/ 100 mls @ 200 mls/hr 09/01/18 19:15 09/01/18 19:24 Sodium Chloride IV 09/01/18 19:44 200 mls/hr ONETIME ONE Administration Sodium Chloride 10 ml 09/01/18 17:53 09/01/18 18:00 Saline Flush FLUSH 10 ml ASDIRECTED PRN Administration Keep Vein Open Discontinued Medications Generic Name Dose Route Start Last Admin Trade Name Radha PRN Reason Stop Dose Admin Albuterol/Ipratropium 3 ml 09/01/18 18:01 09/01/18 19:02 Duoneb 3.0-0.5 Mg/3 Ml NEB 09/01/18 18:02 3 ml ONETIME ONE Administration Methylprednisolone Sodium Succinate 125 mg 09/01/18 19:05 09/01/18 19:24 Solu-Medrol IVPUSH 09/01/18 19:06 125 mg ONETIME ONE Administration - Re-Assessments/Exams Free Text/Narrative Re-Assessment/Exam: 09/01/18 18:50 I ordered an IV saline lock, duoneb, EKG, CXR, x-ray of her left hip and low back, labs, blood cultures and lactic acid. Her EKG shows a NSR with no acute changes. 09/01/18 19:30 Her CXR shows a left lower lobe infiltrate. Her WBC is elevated at 15.02. Her Hgb is low at 9.4. Her lactic acid is normal. I have ordered rocephin 2 grams IV and solu-medrol 125mg IV. She has pneumonia. Her lumbar spine x-ray shows degenerative changes but no acute changes. The x-ray of her left hip and pelvis shows no fracture but she does have some arthritis. I feel she needs to be admitted. I am just waiting on some labs. 09/01/18 19:35 Her Na was a little low at 134. Her creatinine was elevated at 1.4. Her glucose was slightly elevated at 134. Her troponin is normal. I will call Dr George and get her admitted. Departure - Departure Time of Disposition: 19:40 Disposition: Admitted As Inpatient 68 Condition: Fair Clinical Impression: Renal insufficiency, Generalized weakness Pneumonia Qualifiers: Pneumonia type: due to unspecified organism Laterality: left Lung location: lower lobe of lung Qualified Code(s): J18.1 - Lobar pneumonia, unspecified organism COPD (chronic obstructive pulmonary disease) Qualifiers: COPD type: unspecified COPD Qualified Code(s): J44.9 - Chronic obstructive pulmonary disease, unspecified Anemia Qualifiers: Anemia type: unspecified type Qualified Code(s): D64.9 - Anemia, unspecified Fall Qualifiers: Encounter type: initial encounter Qualified Code(s): W19.XXXA - Unspecified fall, initial encounter Contusion of left hip Qualifiers: Encounter type: initial encounter Qualified Code(s): S70.02XA - Contusion of left hip, initial encounter Low back pain Qualifiers: Chronicity: acute Back pain laterality: bilateral Sciatica presence: without sciatica Qualified Code(s): M54.5 - Low back pain Chest pain Qualifiers: Chest pain type: unspecified Qualified Code(s): R07.9 - Chest pain, unspecified - Discharge Information Referrals: Deonte Candelario MD [Primary Care Provider] - Forms: ED Department Discharge - My Orders Last 24 Hours: My Active Orders 09/01/18 17:53 Cardiac Monitoring [RC] . DIRECTED Oxygen Therapy [RC] PRN Sodium Chloride 0.9% [Saline Flush] 10 ml FLUSH ASDIRECTED PRN Peripheral IV Insertion Adult [OM.PC] Stat 09/01/18 17:54 EKG Documentation Completion [RC] STAT Peripheral IV Care [RC] . DIRECTED Chest 1V Frontal [CR] Stat Lumbar Spine 2 or 3V [CR] Stat 09/01/18 17:55 Hip Min 2V or 3V w Pelvis Lt [CR] Stat Blood Culture x2 Reflex Set [OM.PC] Stat 09/01/18 18:02 RT Aerosol Therapy [RC] ASDIRECTED 09/01/18 18:15 CULTURE BLOOD [BC] Stat 09/01/18 18:25 CULTURE BLOOD [BC] Stat 09/01/18 19:15 cefTRIAXone [Rocephin] 2 gm Sodium Chloride 0.9% [Normal Saline] 100 ml IV ONETIME 09/01/18 19:24 MYCOPLASMA PNEUMONIAE IGM AB [CHEM] Stat - Assessment/Plan Last 24 Hours: My Active Orders 09/01/18 17:53 Cardiac Monitoring [RC] . DIRECTED Oxygen Therapy [RC] PRN Sodium Chloride 0.9% [Saline Flush] 10 ml FLUSH ASDIRECTED PRN Peripheral IV Insertion Adult [OM.PC] Stat 09/01/18 17:54 EKG Documentation Completion [RC] STAT Peripheral IV Care [RC] . DIRECTED Chest 1V Frontal [CR] Stat Lumbar Spine 2 or 3V [CR] Stat 09/01/18 17:55 Hip Min 2V or 3V w Pelvis Lt [CR] Stat Blood Culture x2 Reflex Set [OM.PC] Stat 09/01/18 18:02 RT Aerosol Therapy [RC] ASDIRECTED 09/01/18 18:15 CULTURE BLOOD [BC] Stat 09/01/18 18:25 CULTURE BLOOD [BC] Stat 09/01/18 19:15 cefTRIAXone [Rocephin] 2 gm Sodium Chloride 0.9% [Normal Saline] 100 ml IV ONETIME 09/01/18 19:24 MYCOPLASMA PNEUMONIAE IGM AB [CHEM] Stat
[2018-09-01] MEDS ORDERED: methylPREDNISolone Sodium Succinate 125 MG/2 ML SDV IVPUSH ONE (19:05)
[2018-09-01] MEDS ORDERED: cefTRIAXone 2 GM in Sodium Chloride 0.9% 100 ML IV ONE (19:15)
[2018-09-01] MEDS ORDERED: Azithromycin 500 MG in Sodium Chloride 0.9% 250 ML IV ONE (21:44)
--- NOTE | 2018-09-01 21:46 | PCM.HP ---
H&P History of Present Illness - General Date of Service: 09/01/18 Admit Problem/Dx: Admission Diagnosis/Problem Admission Diagnosis/Problem Pneumonia - History of Present Illness Initial Comments - Free Text/Narative: This 82-year-old female that lives at the [facility] return to the emergency room at 1700 tonight secondary to left hip and knee pain. Patient fell approximately 3:00 in the morning, and was seen in the emergency room. CT scan of the head was performed and at that time she did not complain of hip or knee pain. She did have a skin tear on her left arm. Patient lives in assisted living community and she has to be able to be fairly independent to live there. She states now she cannot get up or down to the commode because of pain. She also has a productive yellow cough. It is not any different than normal. She smoked for 25 years and stopped in 2008 after a biopsy. 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 Last night in the emergency room she did have 5-10 WBCs in her urine with many bacteria. In the emergency room tonight it was noted that her white count had increased a little bit to 15,000 and a chest x-ray showed right lower lobe pneumonia. It was felt to bring her in because of the diagnosis of pneumonia. She is normally on 2 L of nasal cannula at home. Patient also states that she has not had a bowel movement in 3 days. She usually uses a stool softener and grape juice to help move her bowels. Left Upper Leg Pain Score (Numeric/FACES): 6 - Related Data Allergies/Adverse Reactions: Allergies Allergy/AdvReac Type Severity Reaction Status Date / Time shellfish derived Allergy Severe Airway Verified 09/01/18 17:33 Tightness egg Allergy Itching Verified 09/01/18 17:33 ciprofloxacin AdvReac Syncope Verified 09/01/18 17:33 escitalopram oxalate AdvReac Syncope Verified 09/01/18 17:33 [From [employer]] yogart Allergy Severe Swelling Uncoded 09/01/18 17:33 A&W root beer Allergy Hives Uncoded 09/01/18 17:33 oxalate Allergy Other Uncoded 09/01/18 17:33 Home Medications: Home Meds Albuterol/Ipratropium [Combivent Respimat] 20 - 100 mcg INH QID 12/21/14 [ History] Ascorbic Acid [Vitamin C] 1 tab PO DAILY 12/21/14 [History] Budesonide [Pulmicort] 0.5 - 2 mg INH BID 12/21/14 [History] Multivitamin [Multivitamins] 1 tab PO DAILY 12/21/14 [History] Sertraline [Zoloft] 25 mg PO DAILY 12/21/14 [History] Vitamin E (dl, acetate) [Vitamin E] 1 cap PO DAILY 12/21/14 [History] Ergocalciferol (Vitamin D2) [Vitamin D] 400 unit PO DAILY 08/19/16 [History] Ferrous Sulfate [Iron] 325 mg PO ASDIRECTED 08/19/16 [History] Cyanocobalamin (Vitamin B-12) [Vitamin B-12] 1 tab PO DAILY 03/25/18 [History] Past Medical History HEENT History: Reports: Cataract, Hard of Hearing Cardiovascular History: Reports: Heart Failure, Other (See Below) Other Cardiovascular History: heart murmer since young Respiratory History: Reports: Asthma, COPD, SOB Other Respiratory History: lung cancer in left lung-currently not active-went through chemo tx in 2017 Gastrointestinal History: Reports: Hemorrhoids Genitourinary History: Reports: Chronic Renal Insuffiency, Urinary Incontinence [employer] History: Reports: Other OB/BYN History: Tubal Litigation Musculoskeletal History: Reports: Back Pain, Chronic, Osteoarthritis Other Musculoskeletal History: hip pain related to arthritis Neurological History: Reports: TIA Psychiatric History: Reports: Depression Endocrine/Metabolic History: Reports: None Hematologic History: Reports: Anemia Other Hematologic History: takes an iron tablet Immunologic History: Reports: None 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, Other (See Below) Other Oncologic History: epiglottis carcinoma Dermatologic History: Reports: Eczema - Infectious Disease History Infectious Disease History: Reports: Chicken Pox, Influenza, Measles, Mumps, Scarlet Fever, Other (See Below) Other Infectious Disease History: flu - Past Surgical History HEENT Surgical History: Reports: Cataract Surgery, Oral Surgery, Tonsillectomy Cardiovascular Surgical History: Reports: None Other Cardiovascular Surgeries/Procedures: Prior cardiac arrest during labor and delivery Respiratory Surgical History: Reports: Lung Biopsies GI Surgical History: Reports: Appendectomy, Other (See Below) Other GI Surgeries/Procedures: part of intestine removed during labor by OB doctor, not sure of surgery. Female Surgical History: Reports: D&C, Tubal Ligation Endocrine Surgical History: Reports: None Neurological Surgical History: Reports: None Oncologic Surgical History: Reports: None Dermatological Surgical History: Reports: None Social & Family History - Family History Family Medical History: Noncontributory - Tobacco Use Smoking Status *Q: Former Smoker Years of Tobacco use: 30 Packs/Tins Daily: 0.5 Used Tobacco, but Quit: Yes Month/Year Tobacco Last Used: june 13 2008 Second Hand Smoke Exposure: No - Caffeine Use Caffeine Use: Reports: None - Recreational Drug Use Recreational Drug Use: No - Living Situation & Occupation Living situation: Reports: , Assisted Living ([facility] in [place]) Occupation: Retired H&P Review of Systems - Review of Systems: Review Of Systems: ROS reveals no pertinent complaints other than HPI. Exam - Exam Exam: See Below - Vital Signs Vital Signs: Last Vital Signs Temp 97.9 F 09/01/18 17:33 Pulse 107 H 09/01/18 17:33 Resp 20 09/01/18 17:33 BP 132/51 L 09/01/18 17:33 Pulse Ox 92 L 09/01/18 18:02 Weight: 151 lb 12.8 oz - Exam Quality Assessment: Supplemental Oxygen General: Alert, Oriented HEENT: Conjunctiva Clear, Mucosa Moist & Emily, Posterior Pharynx Clear Neck: Supple Lungs: Normal Respiratory Effort, Rhonchi (Bibasilar) Cardiovascular: Regular Rate, Regular Rhythm GI/Abdominal Exam: Normal Bowel Sounds, Soft, Non-Tender, No Distention, No Abnormal Bruit Extremities: Normal Inspection, Normal Range of Motion, No Pedal Edema, Pedal Edema (Bilateral trace edema) Skin: Warm, Dry, Intact Neuro Extensive - Mental Status: Alert, Oriented x3 Neuro Extensive - Motor, Sensory, Reflexes: CN II-XII Intact Psychiatric: Alert, Normal Affect, Normal Mood - Patient Data Lab Results Last 24 hrs: Laboratory Results - last 24 hr 09/01/18 09/01/18 09/01/18 Range/Units 18:15 18:15 18:15 WBC 15.02 H (3.98-10.04) K/mm3 RBC 3.00 L (3.98-5.22) M/mm3 Hgb 9.4 L (11.2-15.7) gm/L Hct 30.0 L (34.1-44.9) % MCV 100.0 H (79.4-94.8) fl MCH 31.3 (25.6-32.2) pg MCHC 31.3 L (32.2-35.5) g/dl RDW Std Deviation 49.3 H (36.4-46.3) fL Plt Count 213 (182-369) K/mm3 MPV 9.3 L (9.4-12.3) fl Neut % (Auto) 84.7 H (34.0-71.1) % Lymph % (Auto) 9.4 L (19.3-51.7) % [place] % (Auto) 5.3 (4.7-12.5) % Eos % (Auto) 0.2 L (0.7-5.8) Baso % (Auto) 0.1 (0.1-1.2) % Neut # (Auto) 12.74 H (1.56-6.13) K/mm3 Lymph # (Auto) 1.41 (1.18-3.74) K/mm3 [place] # (Auto) 0.79 H (0.24-0.36) K/mm3 Eos # (Auto) 0.03 L (0.04-0.36) K/mm3 Baso # (Auto) 0.01 (0.01-0.08) K/mm3 Manual Slide Review Abnormal smear Sodium 134 L (136-145) mEq/L Potassium 4.1 (3.5-5.1) mEq/L Chloride 97 L (98-107) mEq/L Carbon Dioxide 30 (21-32) mEq/L Anion Gap 11.1 (5-15) BUN 30 H (7-18) mg/dL Creatinine 1.4 H (0.55-1.02) mg/dL Est Cr Clr Drug Dosing 24.18 mL/min Estimated GFR (MDRD) 36 (>60) mL/min BUN/Creatinine Ratio 21.4 H (14-18) Glucose 134 H (83-115) mg/dL Lactic Acid (0.4-2.0) mmol/L Calcium 9.7 (8.5-10.1) mg/dL Total Bilirubin 0.5 (0.2-1.0) mg/dL AST 25 (15-37) U/L ALT 28 (14-59) U/L Alkaline Phosphatase 119 H (46-116) U/L Troponin I < 0.017 (0.00-0.056) ng/mL Total Protein 7.2 (6.4-8.2) g/dl Albumin 3.1 L (3.4-5.0) g/dl Globulin 4.1 gm/dL Albumin/Globulin Ratio 0.8 L (1-2) Mycoplasma pneumon IgM Negative (NEGATIVE) 09/01/18 Range/Units 18:25 WBC (3.98-10.04) K/mm3 RBC (3.98-5.22) M/mm3 Hgb (11.2-15.7) gm/L Hct (34.1-44.9) % MCV (79.4-94.8) fl MCH (25.6-32.2) pg MCHC (32.2-35.5) g/dl RDW Std Deviation (36.4-46.3) fL Plt Count (182-369) K/mm3 MPV (9.4-12.3) fl Neut % (Auto) (34.0-71.1) % Lymph % (Auto) (19.3-51.7) % [place] % (Auto) (4.7-12.5) % Eos % (Auto) (0.7-5.8) Baso % (Auto) (0.1-1.2) % Neut # (Auto) (1.56-6.13) K/mm3 Lymph # (Auto) (1.18-3.74) K/mm3 [place] # (Auto) (0.24-0.36) K/mm3 Eos # (Auto) (0.04-0.36) K/mm3 Baso # (Auto) (0.01-0.08) K/mm3 Manual Slide Review Sodium (136-145) mEq/L Potassium (3.5-5.1) mEq/L Chloride (98-107) mEq/L Carbon Dioxide (21-32) mEq/L Anion Gap (5-15) BUN (7-18) mg/dL Creatinine (0.55-1.02) mg/dL Est Cr Clr Drug Dosing mL/min Estimated GFR (MDRD) (>60) mL/min BUN/Creatinine Ratio (14-18) Glucose (83-115) mg/dL Lactic Acid 1.3 (0.4-2.0) mmol/L Calcium (8.5-10.1) mg/dL Total Bilirubin (0.2-1.0) mg/dL AST (15-37) U/L ALT (14-59) U/L Alkaline Phosphatase (46-116) U/L Troponin I (0.00-0.056) ng/mL Total Protein (6.4-8.2) g/dl Albumin (3.4-5.0) g/dl Globulin gm/dL Albumin/Globulin Ratio (1-2) Mycoplasma pneumon IgM (NEGATIVE) Result Diagrams: 09/01/18 18:15 09/01/18 18:15 - Problem List (1) Contusion of left hip SNOMED Code(s): 33194131 ICD Code: S70.02XA - CONTUSION OF LEFT HIP, INITIAL ENCOUNTER Status: Acute Current Visit: Yes Qualifiers: Encounter type: initial encounter Qualified Code(s): S70.02XA - Contusion of left hip, initial encounter (2) Pneumonia SNOMED Code(s): 483625179 ICD Code: J18.9 - PNEUMONIA, UNSPECIFIED ORGANISM Status: Acute Current Visit: Yes Qualifiers: Pneumonia type: due to unspecified organism Laterality: left Lung location: lower lobe of lung Qualified Code(s): J18.1 - Lobar pneumonia, unspecified organism (3) Renal insufficiency SNOMED Code(s): 119657747, 370457034 ICD Code: N28.9 - DISORDER OF KIDNEY AND URETER, UNSPECIFIED Status: Acute Current Visit: Yes (4) Anemia SNOMED Code(s): 752269004 ICD Code: D64.9 - ANEMIA, UNSPECIFIED Status: Acute Current Visit: Yes Qualifiers: Anemia type: unspecified type Qualified Code(s): D64.9 - Anemia, unspecified Problem List Initiated/Reviewed/Updated: Yes Orders Last 24hrs: Active Orders 24 hr Category Date Time Status Patient Status [ADT] Routine ADT 09/01/18 20:33 Active Cardiac Monitoring [RC] . DIRECTED Care 09/01/18 17:53 Active Oxygen Therapy [RC] PRN Care 09/01/18 17:53 Active Peripheral IV Care [RC] . DIRECTED Care 09/01/18 17:54 Active RT Aerosol Therapy [RC] ASDIRECTED Care 09/01/18 18:02 Active Consult to Case Management/Ammonia Refrigeration Technician [CONS] Cons 09/01/18 21:41 Ordered Routine OT Evaluation and Treatment [CONS] Routine Cons 09/01/18 21:42 Ordered PT Evaluation and Treatment [CONS] Routine Cons 09/01/18 21:41 Ordered Chest 1V Frontal [CR] Stat Exams 09/01/18 17:54 Taken Hip Min 2V or 3V w Pelvis Lt [CR] Stat Exams 09/01/18 17:55 Taken Lumbar Spine 2 or 3V [CR] Stat Exams 09/01/18 17:54 Taken CBC WITH AUTO DIFF [HEME] AM Lab 09/02/18 05:11 Ordered CMP [COMPREHENSIVE METABOLIC PN,CMP] [CHEM] AM Lab 09/02/18 05:11 Ordered CULTURE BLOOD [BC] Stat Lab 09/01/18 18:15 Received CULTURE BLOOD [BC] Stat Lab 09/01/18 18:25 Received CULTURE SPUTUM + SMEAR [RM] Routine Lab 09/01/18 21:42 Ordered CULTURE URINE [RM] Routine Lab 09/01/18 21:40 Ordered LACTIC ACID [CHEM] Q6H Lab 09/01/18 21:45 Ordered LACTIC ACID [CHEM] Q6H Lab 09/02/18 03:45 Ordered LACTIC ACID [CHEM] Q6H Lab 09/02/18 09:45 Ordered LEGIONELLA ANTIGEN [MREF] Routine Lab 09/01/18 21:41 Ordered MAGNESIUM [CHEM] AM Lab 09/02/18 05:11 Ordered PHOSPHORUS [CHEM] AM Lab 09/02/18 05:11 Ordered RESPIRATORY PANEL Routine Lab 09/01/18 21:41 Ordered STREP PNEUMONIAE ANTIGEN [MREF] Routine Lab 09/01/18 21:41 Ordered Azithromycin [Zithromax] 500 mg Med 09/01/18 21:44 Ordered Sodium Chloride 0.9% [Normal Saline] 250 ml IV ONETIME Sodium Chloride 0.9% [Saline Flush] Med 09/01/18 17:53 Active 10 ml FLUSH ASDIRECTED PRN cefTRIAXone [Rocephin] Med 09/02/18 20:00 Ordered 1 gm IVPUSH Q24H Blood Culture x2 Reflex Set [OM.PC] Stat Oth 09/01/18 17:55 Ordered Peripheral IV Insertion Adult [OM.PC] Stat Oth 09/01/18 17:53 Ordered Medication Orders Ceftriaxone Sodium (Rocephin) 1 gm IVPUSH Q24H FIDE Azithromycin 500 mg/ Sodium (Chloride) 250 mls @ 250 mls/hr IV ONETIME ONE Stop: 09/01/18 22:43 Sodium Chloride (Saline Flush) 10 ml FLUSH ASDIRECTED PRN PRN Reason: Keep Vein Open Last Admin: 09/01/18 18:00 Dose: 10 ml Assessment/Plan Comment:: Pneumonia * Checks x-ray shows a potential right lower lobe infiltrate. * white count of 15,000 which is worsened since this morning. Lactic acid was normal. * Blood culture was drawn in the emergency room. Sputum culture ordered * Rocephin given in the emergency room. * Start Zithromax 500 mg IV 1 then 250 mg a day * Recheck CBC in the morning. Acute kidney injury on chronic renal insufficiency * Creatinine increased from 1.1-1.4 since this morning at 6:00. * BUN increased from 25-30. * Start IV fluids at 100 mL per hour. * Recheck CMP in the morning. Anemia * Hemoglobin has dropped from 10.7 this morning and 9.4. * Repeat CBC in the morning. * prophylaxis for PTE secondary to the above Bacteriuria * Culture urine * Likely a symptomatic bacteriuria and decided to be treated. COPD * Prednisone 40 mg a day for 5 days * Combivent 2 puffs 4 times a day * Albuterol nebs every 2 hours when necessary Left hip and knee pain * X-rays of left hip are negative but will be officially read in the morning. * Tylenol and [place] for pain. * PT and OT consult Length of stay estimated to be 3 days due to pneumonia Discharge planning consult CODE STATUS: Full code
[2018-09-01] MEDS ORDERED: Acetaminophen 325 MG Tab PO PRN (22:25)
[2018-09-01] MEDS ORDERED: Bisacodyl 5 MG Tab PO PRN (22:25)
[2018-09-01] MEDS ORDERED: Acetaminophen/HYDROcodone 325-5 MG Tab PO PRN (22:25)
[2018-09-01] MEDS ORDERED: Ondansetron 4 MG Tab.DIS PO PRN (22:25)
[2018-09-01] MEDS ORDERED: Lactated Ringers 1,000 ML IV SCH (22:30)
[2018-09-01] MEDS ORDERED: Albuterol 0.083% 2.5 MG/3 ML Neb Soln NEB PRN (22:31)
[2018-09-01] MEDS: Polyethylene Glycol 3350 Powder 17 GM Packet PO SCH (22:54)
[2018-09-01] MEDS: guaiFENesin 600 MG Tab.ER PO SCH (22:54)
[2018-09-02] MEDS ORDERED: Budesonide 0.5 MG/2 ML Neb Susp INH SCH (06:00)
[2018-09-02] MEDS: Albuterol 6.7 GM Inhaler INH SCH ×3 (06:10→18:37)
[2018-09-02] MEDS: Glycopyrrolate 15.6 MCG Cap.W.Dev Kit of 6 IH SCH ×2 (06:10→20:53)
--- NOTE | 2018-09-02 07:29 | PCM.PN ---
<Ryan Isidro - Last Filed: 09/02/18 13:23> - General Info Date of Service: 09/02/18 Admission Dx/Problem (Free Text): Admission Diagnosis/Problem Admission Diagnosis/Problem Pneumonia Subjective Update: In to see Ofelia with Dr. George. This currently appears to be more of a COPD exacerbation than PNA. UA and culture is suggesting UTI. She reports she had a prior UTI and was hospitalized in March. Old records reviewed and show this was E. Coli with good sensitivities to Rocephin. Will repeat CXR tomorrow. Continue current treatment plan. Will add IS and acapella. Lactic acid was elevated this AM 6 Hrs after prior normal draw. Will repeat and continue IV fluids until then. Functional Status: Reports: Pain Controlled, Tolerating Diet, Ambulating, Urinating, Incentive Spirometry, Other (acapella ). Denies: New Symptoms - Review of Systems General: Reports: No Symptoms, Weakness (improving ). Denies: Fever, Fatigue, Malaise, Chills HEENT: Reports: No Symptoms. Denies: Headaches, Sore Throat Pulmonary: Reports: No Symptoms, Cough, Sputum, Wheezing. Denies: Shortness of Breath, Pleuritic Chest Pain Cardiovascular: Reports: No Symptoms. Denies: Chest Pain, Palpitations, Orthopnea, Edema Gastrointestinal: Reports: No Symptoms. Denies: Abdominal Pain, Constipation, Diarrhea, Nausea, Vomiting Genitourinary: Reports: Other (reports she has "felt like she has a UTI") Musculoskeletal: Reports: No Symptoms Skin: Reports: No Symptoms. Denies: Cyanosis Neurological: Reports: No Symptoms. Denies: Confusion Psychiatric: Reports: No Symptoms - Patient Data Vitals - Most Recent: Last Vital Signs Temp 98.6 F 09/01/18 21:04 Pulse 77 09/02/18 03:16 Resp 20 09/02/18 03:16 BP 113/58 L 09/02/18 03:16 Pulse Ox 94 L 09/02/18 06:12 Weight - Most Recent: 153 lb 9.6 oz I&O - Last 24 Hours: Intake & Output 09/01/18 09/02/18 09/02/18 22:59 06:59 14:59 Intake Total 1471 Output Total 350 Balance 1121 Lab Results Last 24 Hours: Laboratory Results - last 24 hr 09/01/18 09/01/18 09/01/18 Range/Units 18:15 18:15 18:15 WBC 15.02 H (3.98-10.04) K/mm3 RBC 3.00 L (3.98-5.22) M/mm3 Hgb 9.4 L (11.2-15.7) gm/L Hct 30.0 L (34.1-44.9) % MCV 100.0 H (79.4-94.8) fl MCH 31.3 (25.6-32.2) pg MCHC 31.3 L (32.2-35.5) g/dl RDW Std Deviation 49.3 H (36.4-46.3) fL Plt Count 213 (182-369) K/mm3 MPV 9.3 L (9.4-12.3) fl Neut % (Auto) 84.7 H (34.0-71.1) % Lymph % (Auto) 9.4 L (19.3-51.7) % Harvey % (Auto) 5.3 (4.7-12.5) % Eos % (Auto) 0.2 L (0.7-5.8) Baso % (Auto) 0.1 (0.1-1.2) % Neut # (Auto) 12.74 H (1.56-6.13) K/mm3 Lymph # (Auto) 1.41 (1.18-3.74) K/mm3 Harvey # (Auto) 0.79 H (0.24-0.36) K/mm3 Eos # (Auto) 0.03 L (0.04-0.36) K/mm3 Baso # (Auto) 0.01 (0.01-0.08) K/mm3 Manual Slide Review Abnormal smear Sodium 134 L (136-145) mEq/L Potassium 4.1 (3.5-5.1) mEq/L Chloride 97 L (98-107) mEq/L Carbon Dioxide 30 (21-32) mEq/L Anion Gap 11.1 (5-15) BUN 30 H (7-18) mg/dL Creatinine 1.4 H (0.55-1.02) mg/dL Est Cr Clr Drug Dosing 24.18 mL/min Estimated GFR (MDRD) 36 (>60) mL/min BUN/Creatinine Ratio 21.4 H (14-18) Glucose 134 H (83-115) mg/dL Lactic Acid (0.4-2.0) mmol/L Calcium 9.7 (8.5-10.1) mg/dL Phosphorus (2.6-4.7) mg/dL Magnesium (1.8-2.4) mg/dl Total Bilirubin 0.5 (0.2-1.0) mg/dL AST 25 (15-37) U/L ALT 28 (14-59) U/L Alkaline Phosphatase 119 H (46-116) U/L Troponin I < 0.017 (0.00-0.056) ng/mL Total Protein 7.2 (6.4-8.2) g/dl Albumin 3.1 L (3.4-5.0) g/dl Globulin 4.1 gm/dL Albumin/Globulin Ratio 0.8 L (1-2) Mycoplasma pneumon IgM Negative (NEGATIVE) MRSA (PCR) 09/01/18 09/01/18 09/01/18 Range/Units 18:25 21:50 23:52 WBC (3.98-10.04) K/mm3 RBC (3.98-5.22) M/mm3 Hgb (11.2-15.7) gm/L Hct (34.1-44.9) % MCV (79.4-94.8) fl MCH (25.6-32.2) pg MCHC (32.2-35.5) g/dl RDW Std Deviation (36.4-46.3) fL Plt Count (182-369) K/mm3 MPV (9.4-12.3) fl Neut % (Auto) (34.0-71.1) % Lymph % (Auto) (19.3-51.7) % Harvey % (Auto) (4.7-12.5) % Eos % (Auto) (0.7-5.8) Baso % (Auto) (0.1-1.2) % Neut # (Auto) (1.56-6.13) K/mm3 Lymph # (Auto) (1.18-3.74) K/mm3 Harvey # (Auto) (0.24-0.36) K/mm3 Eos # (Auto) (0.04-0.36) K/mm3 Baso # (Auto) (0.01-0.08) K/mm3 Manual Slide Review Sodium (136-145) mEq/L Potassium (3.5-5.1) mEq/L Chloride (98-107) mEq/L Carbon Dioxide (21-32) mEq/L Anion Gap (5-15) BUN (7-18) mg/dL Creatinine (0.55-1.02) mg/dL Est Cr Clr Drug Dosing mL/min Estimated GFR (MDRD) (>60) mL/min BUN/Creatinine Ratio (14-18) Glucose (83-115) mg/dL Lactic Acid 1.3 0.6 (0.4-2.0) mmol/L Calcium (8.5-10.1) mg/dL Phosphorus (2.6-4.7) mg/dL Magnesium (1.8-2.4) mg/dl Total Bilirubin (0.2-1.0) mg/dL AST (15-37) U/L ALT (14-59) U/L Alkaline Phosphatase (46-116) U/L Troponin I (0.00-0.056) ng/mL Total Protein (6.4-8.2) g/dl Albumin (3.4-5.0) g/dl Globulin gm/dL Albumin/Globulin Ratio (1-2) Mycoplasma pneumon IgM (NEGATIVE) MRSA (PCR) Negative 09/02/18 09/02/18 09/02/18 Range/Units 03:45 03:45 03:45 WBC 12.33 H (3.98-10.04) K/mm3 RBC 3.03 L (3.98-5.22) M/mm3 Hgb 9.4 L (11.2-15.7) gm/L Hct 29.4 L (34.1-44.9) % MCV 97.0 H (79.4-94.8) fl MCH 31.0 (25.6-32.2) pg MCHC 32.0 L (32.2-35.5) g/dl RDW Std Deviation 46.9 H (36.4-46.3) fL Plt Count 187 (182-369) K/mm3 MPV 9.0 L (9.4-12.3) fl Neut % (Auto) 90.3 H (34.0-71.1) % Lymph % (Auto) 8.4 L (19.3-51.7) % Harvey % (Auto) 1.0 L (4.7-12.5) % Eos % (Auto) 0 L (0.7-5.8) Baso % (Auto) 0.1 (0.1-1.2) % Neut # (Auto) 11.14 H (1.56-6.13) K/mm3 Lymph # (Auto) 1.03 L (1.18-3.74) K/mm3 Harvey # (Auto) 0.12 L (0.24-0.36) K/mm3 Eos # (Auto) 0.00 L (0.04-0.36) K/mm3 Baso # (Auto) 0.01 (0.01-0.08) K/mm3 Manual Slide Review Abnormal smear Sodium 134 L (136-145) mEq/L Potassium 4.4 (3.5-5.1) mEq/L Chloride 98 (98-107) mEq/L Carbon Dioxide 28 (21-32) mEq/L Anion Gap 12.4 (5-15) BUN 28 H (7-18) mg/dL Creatinine 1.2 H (0.55-1.02) mg/dL Est Cr Clr Drug Dosing 28.21 mL/min Estimated GFR (MDRD) 43 (>60) mL/min BUN/Creatinine Ratio 23.3 H (14-18) Glucose 161 H (83-115) mg/dL Lactic Acid 0.8 (0.4-2.0) mmol/L Calcium 9.6 (8.5-10.1) mg/dL Phosphorus 3.8 (2.6-4.7) mg/dL Magnesium 2.1 (1.8-2.4) mg/dl Total Bilirubin 0.3 (0.2-1.0) mg/dL AST 24 (15-37) U/L ALT 29 (14-59) U/L Alkaline Phosphatase 118 H (46-116) U/L Troponin I (0.00-0.056) ng/mL Total Protein 7.0 (6.4-8.2) g/dl Albumin 2.8 L (3.4-5.0) g/dl Globulin 4.2 gm/dL Albumin/Globulin Ratio 0.7 L (1-2) Mycoplasma pneumon IgM (NEGATIVE) MRSA (PCR) Mike Results Last 24 Hours: Microbiology 09/01/18 23:00 Gram Stain - Preliminary Sputum - Expectorated Med Orders - Current: Current Medications Acetaminophen (Tylenol) 650 mg PO Q4H PRN PRN Reason: Pain (Mild 1-3)/fever Hydrocodone Bitart/Acetaminophen ([place] 325-5 Mg) 1 tab PO Q4H PRN PRN Reason: Pain (moderate 4-6) Albuterol (Proventil Neb Soln) 2.5 mg NEB Q2H PRN PRN Reason: Cough Albuterol (Proventil Hfa) 0 gm INH QIDRT [facility] Last Admin: 09/02/18 06:10 Dose: 1 puff Bisacodyl (Dulcolax) 5 mg PO DAILY PRN PRN Reason: Constipation Budesonide (Pulmicort) 0.5 - 2 mg INH BIDRT [facility] Cyanocobalamin (Vitamin B12) 1,000 mcg PO DAILY [facility] Ferrous Sulfate (Ferrous Sulfate) 325 mg PO Q48H [facility] Glycopyrrolate (Seebri Neohaler) 15.6 mcg IH BIDRT [facility] Last Admin: 09/02/18 06:10 Dose: 1 puff Guaifenesin (Mucinex) 600 mg PO BID [facility] Last Admin: 09/01/18 22:54 Dose: 600 mg Ceftriaxone Sodium 1 gm/ (Sodium Chloride) 100 mls @ 200 mls/hr IV Q24H [facility] Lactated Ringer's (Ringers, Lactated) 1,000 mls @ 125 mls/hr IV ASDIRECTED [facility] Last Admin: 09/01/18 22:54 Dose: 125 mls/hr Latanoprost (Xalatan 0.005% Ophth Soln) 0 ml EYELF BEDTIME [facility] Ondansetron HCl (Zofran Odt) 4 mg PO Q6H PRN PRN Reason: nausea, able to take PO Polyethylene Glycol (Miralax) 17 gm PO DAILY [facility] Stop: 09/02/18 21:00 Last Admin: 09/01/18 22:54 Dose: 17 gm Prednisone (Prednisone) 40 mg PO WITHBREAKFAST [facility] Sertraline HCl (Zoloft) 25 mg PO DAILY [facility] Sodium Chloride (Saline Flush) 10 ml FLUSH ASDIRECTED PRN PRN Reason: Keep Vein Open Last Admin: 09/01/18 18:00 Dose: 10 ml Discontinued Medications Albuterol/Ipratropium (Duoneb 3.0-0.5 Mg/3 Ml) 3 ml NEB ONETIME ONE Stop: 09/01/18 18:02 Last Admin: 09/01/18 19:02 Dose: 3 ml Ceftriaxone Sodium 2 gm/ (Sodium Chloride) 100 mls @ 200 mls/hr IV ONETIME ONE Stop: 09/01/18 19:44 Last Admin: 09/01/18 19:24 Dose: 200 mls/hr Azithromycin 500 mg/ Sodium (Chloride) 250 mls @ 250 mls/hr IV ONETIME ONE Stop: 09/01/18 22:43 Last Admin: 09/01/18 22:44 Dose: 250 mls/hr Methylprednisolone Sodium Succinate (Solu-Medrol) 125 mg IVPUSH ONETIME ONE Stop: 09/01/18 19:06 Last Admin: 09/01/18 19:24 Dose: 125 mg Tiotropium Hughson (Spiriva Handihaler) 18 mcg INH DAILY [facility]IDE - Exam Quality Assessment: Supplemental Oxygen (Chronic - 2L ), DVT Prophylaxis General: Alert, No Acute Distress HEENT: Pupils Equal, Pupils Reactive, EOMI, Mucous Membr. Moist/[place] Neck: Supple, Trachea Midline Lungs: Normal Respiratory Effort, Decreased Breath Sounds, Rhonchi, Wheezing ( mild) Cardiovascular: Regular Rate, Regular Rhythm GI/Abdominal Exam: Normal Bowel Sounds, Soft, Non-Tender, No Organomegaly, No Distention, No Abnormal Bruit, No Mass, Pelvis Stable (Female) Exam: Deferred Back Exam: Normal Inspection, Full Range of Motion Extremities: Normal Inspection, Normal Range of Motion, Non-Tender, Normal Capillary Refill, Pedal Edema (trace bilateral ) Peripheral Pulses: 2+: Radial (L), Radial (R), Dorsalis Pedis (L), Dorsalis Pedis (R) Skin: Warm, Dry, Intact Neurological: No New Focal Deficit Psy/Mental Status: Alert, Normal Affect, Normal Mood - Problem List & Annotations (1) COPD exacerbation SNOMED Code(s): 034399549 Code(s): J44.1 - CHRONIC OBSTRUCTIVE PULMONARY DISEASE W (ACUTE) EXACERBATION Status: Acute Current Visit: Yes (2) Contusion of left hip SNOMED Code(s): 14156789 Code(s): S70.02XA - CONTUSION OF LEFT HIP, INITIAL ENCOUNTER Status: Acute Current Visit: Yes Qualifiers: Encounter type: initial encounter Qualified Code(s): S70.02XA - Contusion of left hip, initial encounter (3) Fall SNOMED Code(s): 5776751, 389697924 Code(s): W19.XXXA - UNSPECIFIED FALL, INITIAL ENCOUNTER Status: Acute Priority: High Current Visit: Yes Qualifiers: Encounter type: initial encounter Qualified Code(s): W19.XXXA - Unspecified fall, initial encounter (4) UTI (urinary tract infection) SNOMED Code(s): 37454961 Code(s): N39.0 - URINARY TRACT INFECTION, SITE NOT SPECIFIED Status: Acute Priority: High Current Visit: No Qualifiers: Urinary tract infection type: site unspecified Hematuria presence: without hematuria Qualified Code(s): N39.0 - Urinary tract infection, site not specified (5) Generalized weakness SNOMED Code(s): 52282684 Code(s): R53.1 - WEAKNESS Status: Resolved Priority: High Current Visit : No (6) Anemia SNOMED Code(s): 519975208 Code(s): D64.9 - ANEMIA, UNSPECIFIED Status: Chronic Priority: High Current Visit: Yes Qualifiers: Anemia type: unspecified type Qualified Code(s): D64.9 - Anemia, unspecified - Problem List Review Problem List Initiated/Reviewed/Updated: Yes - Plan Plan:: COPD exacerbation * 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 Lactic acid was normal. * Blood culture was drawn in the emergency room. * Sputum culture ordered - moderate gram negative rods thus far * Rocephin given in the emergency room. * Schedule duonebs QID * Start Zithromax 500 mg IV 1 then 250 mg a day * Prednisone 40 mg a day for 5 days * Combivent 2 puffs 4 times a day * Albuterol nebs every 2 hours when necessary * RT/IS/Acapella * Repeat CXR in 24-48 hours * Hx/o epiglottic cancer and lung cancer in remission Acute kidney injury on chronic renal insufficiency, improving * Creatinine increased from 1.1-->1.4->1.2 * BUN 25-->30-->28 * Start IV fluids at 100 mL per hour--> decrease to 75mL/hr Anemia, stable * Acute on chronic * Hemoglobin has dropped from 10.7 this morning and 9.4; Steady at 9.4 * Repeat CBC in the morning. * prophylaxis for PTE secondary to the above UTI * Culture urine - Gram negative rods >100K * Likely a symptomatic bacteriuria and decided to be treated. * Rocephin as above Left hip and knee pain * X-rays of left hip are negative but will be officially read in the morning. * Tylenol and [place] for pain. * PT and OT consult Length of stay estimated to be 3 days due to pneumonia Discharge planning consult CODE STATUS: Full code <Alexey George - Last Filed: 09/02/18 16:06> - Patient Data Vitals - Most Recent: Last Vital Signs Temp 98.1 F 09/02/18 12:18 Pulse 83 09/02/18 12:18 Resp 18 09/02/18 12:18 BP 129/84 09/02/18 12:18 Pulse Ox 93 L 09/02/18 12:43 I&O - Last 24 Hours: Intake & Output 09/02/18 09/02/18 09/02/18 06:59 14:59 22:59 Intake Total 1471 300 180 Output Total 350 Balance 1121 300 180 Lab Results Last 24 Hours: Laboratory Results - last 24 hr 09/01/18 09/01/18 09/01/18 Range/Units 18:15 18:15 18:15 WBC 15.02 H (3.98-10.04) K/mm3 RBC 3.00 L (3.98-5.22) M/mm3 Hgb 9.4 L (11.2-15.7) gm/L Hct 30.0 L (34.1-44.9) % MCV 100.0 H (79.4-94.8) fl MCH 31.3 (25.6-32.2) pg MCHC 31.3 L (32.2-35.5) g/dl RDW Std Deviation 49.3 H (36.4-46.3) fL Plt Count 213 (182-369) K/mm3 MPV 9.3 L (9.4-12.3) fl Neut % (Auto) 84.7 H (34.0-71.1) % Lymph % (Auto) 9.4 L (19.3-51.7) % Harvey % (Auto) 5.3 (4.7-12.5) % Eos % (Auto) 0.2 L (0.7-5.8) Baso % (Auto) 0.1 (0.1-1.2) % Neut # (Auto) 12.74 H (1.56-6.13) K/mm3 Lymph # (Auto) 1.41 (1.18-3.74) K/mm3 Harvey # (Auto) 0.79 H (0.24-0.36) K/mm3 Eos # (Auto) 0.03 L (0.04-0.36) K/mm3 Baso # (Auto) 0.01 (0.01-0.08) K/mm3 Manual Slide Review Abnormal smear Sodium 134 L (136-145) mEq/L Potassium 4.1 (3.5-5.1) mEq/L Chloride 97 L (98-107) mEq/L Carbon Dioxide 30 (21-32) mEq/L Anion Gap 11.1 (5-15) BUN 30 H (7-18) mg/dL Creatinine 1.4 H (0.55-1.02) mg/dL Est Cr Clr Drug Dosing 24.18 mL/min Estimated GFR (MDRD) 36 (>60) mL/min BUN/Creatinine Ratio 21.4 H (14-18) Glucose 134 H (83-115) mg/dL Lactic Acid (0.4-2.0) mmol/L Calcium 9.7 (8.5-10.1) mg/dL Phosphorus (2.6-4.7) mg/dL Magnesium (1.8-2.4) mg/dl Total Bilirubin 0.5 (0.2-1.0) mg/dL AST 25 (15-37) U/L ALT 28 (14-59) U/L Alkaline Phosphatase 119 H (46-116) U/L Troponin I < 0.017 (0.00-0.056) ng/mL Total Protein 7.2 (6.4-8.2) g/dl Albumin 3.1 L (3.4-5.0) g/dl Globulin 4.1 gm/dL Albumin/Globulin Ratio 0.8 L (1-2) Mycoplasma pneumon IgM Negative (NEGATIVE) MRSA (PCR) 09/01/18 09/01/18 09/01/18 Range/Units 18:25 21:50 23:52 WBC (3.98-10.04) K/mm3 RBC (3.98-5.22) M/mm3 Hgb (11.2-15.7) gm/L Hct (34.1-44.9) % MCV (79.4-94.8) fl MCH (25.6-32.2) pg MCHC (32.2-35.5) g/dl RDW Std Deviation (36.4-46.3) fL Plt Count (182-369) K/mm3 MPV (9.4-12.3) fl Neut % (Auto) (34.0-71.1) % Lymph % (Auto) (19.3-51.7) % Harvey % (Auto) (4.7-12.5) % Eos % (Auto) (0.7-5.8) Baso % (Auto) (0.1-1.2) % Neut # (Auto) (1.56-6.13) K/mm3 Lymph # (Auto) (1.18-3.74) K/mm3 Harvey # (Auto) (0.24-0.36) K/mm3 Eos # (Auto) (0.04-0.36) K/mm3 Baso # (Auto) (0.01-0.08) K/mm3 Manual Slide Review Sodium (136-145) mEq/L Potassium (3.5-5.1) mEq/L Chloride (98-107) mEq/L Carbon Dioxide (21-32) mEq/L Anion Gap (5-15) BUN (7-18) mg/dL Creatinine (0.55-1.02) mg/dL Est Cr Clr Drug Dosing mL/min Estimated GFR (MDRD) (>60) mL/min BUN/Creatinine Ratio (14-18) Glucose (83-115) mg/dL Lactic Acid 1.3 0.6 (0.4-2.0) mmol/L Calcium (8.5-10.1) mg/dL Phosphorus (2.6-4.7) mg/dL Magnesium (1.8-2.4) mg/dl Total Bilirubin (0.2-1.0) mg/dL AST (15-37) U/L ALT (14-59) U/L Alkaline Phosphatase (46-116) U/L Troponin I (0.00-0.056) ng/mL Total Protein (6.4-8.2) g/dl Albumin (3.4-5.0) g/dl Globulin gm/dL Albumin/Globulin Ratio (1-2) Mycoplasma pneumon IgM (NEGATIVE) MRSA (PCR) Negative 09/02/18 09/02/18 09/02/18 Range/Units 03:45 03:45 03:45 WBC 12.33 H (3.98-10.04) K/mm3 RBC 3.03 L (3.98-5.22) M/mm3 Hgb 9.4 L (11.2-15.7) gm/L Hct 29.4 L (34.1-44.9) % MCV 97.0 H (79.4-94.8) fl MCH 31.0 (25.6-32.2) pg MCHC 32.0 L (32.2-35.5) g/dl RDW Std Deviation 46.9 H (36.4-46.3) fL Plt Count 187 (182-369) K/mm3 MPV 9.0 L (9.4-12.3) fl Neut % (Auto) 90.3 H (34.0-71.1) % Lymph % (Auto) 8.4 L (19.3-51.7) % Harvey % (Auto) 1.0 L (4.7-12.5) % Eos % (Auto) 0 L (0.7-5.8) Baso % (Auto) 0.1 (0.1-1.2) % Neut # (Auto) 11.14 H (1.56-6.13) K/mm3 Lymph # (Auto) 1.03 L (1.18-3.74) K/mm3 Harvey # (Auto) 0.12 L (0.24-0.36) K/mm3 Eos # (Auto) 0.00 L (0.04-0.36) K/mm3 Baso # (Auto) 0.01 (0.01-0.08) K/mm3 Manual Slide Review Abnormal smear Sodium 134 L (136-145) mEq/L Potassium 4.4 (3.5-5.1) mEq/L Chloride 98 (98-107) mEq/L Carbon Dioxide 28 (21-32) mEq/L Anion Gap 12.4 (5-15) BUN 28 H (7-18) mg/dL Creatinine 1.2 H (0.55-1.02) mg/dL Est Cr Clr Drug Dosing 28.21 mL/min Estimated GFR (MDRD) 43 (>60) mL/min BUN/Creatinine Ratio 23.3 H (14-18) Glucose 161 H (83-115) mg/dL Lactic Acid 0.8 (0.4-2.0) mmol/L Calcium 9.6 (8.5-10.1) mg/dL Phosphorus 3.8 (2.6-4.7) mg/dL Magnesium 2.1 (1.8-2.4) mg/dl Total Bilirubin 0.3 (0.2-1.0) mg/dL AST 24 (15-37) U/L ALT 29 (14-59) U/L Alkaline Phosphatase 118 H (46-116) U/L Troponin I (0.00-0.056) ng/mL Total Protein 7.0 (6.4-8.2) g/dl Albumin 2.8 L (3.4-5.0) g/dl Globulin 4.2 gm/dL Albumin/Globulin Ratio 0.7 L (1-2) Mycoplasma pneumon IgM (NEGATIVE) MRSA (PCR) 09/02/18 09/02/18 Range/Units 09:58 13:55 WBC (3.98-10.04) K/mm3 RBC (3.98-5.22) M/mm3 Hgb (11.2-15.7) gm/L Hct (34.1-44.9) % MCV (79.4-94.8) fl MCH (25.6-32.2) pg MCHC (32.2-35.5) g/dl RDW Std Deviation (36.4-46.3) fL Plt Count (182-369) K/mm3 MPV (9.4-12.3) fl Neut % (Auto) (34.0-71.1) % Lymph % (Auto) (19.3-51.7) % Harvey % (Auto) (4.7-12.5) % Eos % (Auto) (0.7-5.8) Baso % (Auto) (0.1-1.2) % Neut # (Auto) (1.56-6.13) K/mm3 Lymph # (Auto) (1.18-3.74) K/mm3 Harvey # (Auto) (0.24-0.36) K/mm3 Eos # (Auto) (0.04-0.36) K/mm3 Baso # (Auto) (0.01-0.08) K/mm3 Manual Slide Review Sodium (136-145) mEq/L Potassium (3.5-5.1) mEq/L Chloride (98-107) mEq/L Carbon Dioxide (21-32) mEq/L Anion Gap (5-15) BUN (7-18) mg/dL Creatinine (0.55-1.02) mg/dL Est Cr Clr Drug Dosing mL/min Estimated GFR (MDRD) (>60) mL/min BUN/Creatinine Ratio (14-18) Glucose (83-115) mg/dL Lactic Acid 2.3 H 2.4 H (0.4-2.0) mmol/L Calcium (8.5-10.1) mg/dL Phosphorus (2.6-4.7) mg/dL Magnesium (1.8-2.4) mg/dl Total Bilirubin (0.2-1.0) mg/dL AST (15-37) U/L ALT (14-59) U/L Alkaline Phosphatase (46-116) U/L Troponin I (0.00-0.056) ng/mL Total Protein (6.4-8.2) g/dl Albumin (3.4-5.0) g/dl Globulin gm/dL Albumin/Globulin Ratio (1-2) Mycoplasma pneumon IgM (NEGATIVE) MRSA (PCR) Mike Results Last 24 Hours: Microbiology 09/01/18 23:00 Gram Stain - Final Sputum - Expectorated 09/01/18 06:10 Urine Culture - Preliminary Urine, Bladder Gram Negative Rods Med Orders - Current: Current Medications Acetaminophen (Tylenol) 650 mg PO Q4H PRN PRN Reason: Pain (Mild 1-3)/fever Hydrocodone Bitart/Acetaminophen ([place] 325-5 Mg) 1 tab PO Q4H PRN PRN Reason: Pain (moderate 4-6) Albuterol (Proventil Neb Soln) 2.5 mg NEB Q2H PRN PRN Reason: Cough Albuterol (Proventil Hfa) 0 gm INH QIDRT [facility] Last Admin: 09/02/18 09:42 Dose: 1 puff Albuterol/Ipratropium (Duoneb 3.0-0.5 Mg/3 Ml) 3 ml NEB QID [facility] Last Admin: 09/02/18 12:41 Dose: 3 ml Bisacodyl (Dulcolax) 5 mg PO DAILY PRN PRN Reason: Constipation Budesonide (Pulmicort) 0.5 mg INH BIDRT [facility] Cyanocobalamin (Vitamin B12) 1,000 mcg PO DAILY [facility] Last Admin: 09/02/18 08:42 Dose: 1,000 mcg Ferrous Sulfate (Ferrous Sulfate) 325 mg PO Q48H [facility] Glycopyrrolate (Seebri Neohaler) 15.6 mcg IH BIDRT [facility] Last Admin: 09/02/18 06:10 Dose: 1 puff Guaifenesin (Mucinex) 600 mg PO BID [facility] Last Admin: 09/02/18 08:42 Dose: 600 mg Ceftriaxone Sodium 1 gm/ (Sodium Chloride) 100 mls @ 200 mls/hr IV Q24H [facility] Lactated Ringer's (Ringers, Lactated) 1,000 mls @ 75 mls/hr IV ASDIRECTED [facility] Last Admin: 09/02/18 08:12 Dose: 75 mls/hr Azithromycin 250 mg/ Sodium (Chloride) 250 mls @ 250 mls/hr IV Q24H [facility] Latanoprost (Xalatan 0.005% Ophth Soln) 0 ml EYELF BEDTIME [facility] Ondansetron HCl (Zofran Odt) 4 mg PO Q6H PRN PRN Reason: nausea, able to take PO Polyethylene Glycol (Miralax) 17 gm PO DAILY [facility] Stop: 09/02/18 21:00 Last Admin: 09/02/18 08:42 Dose: 17 gm Prednisone (Prednisone) 40 mg PO WITHBREAKFAST [facility] Last Admin: 09/02/18 07:41 Dose: 40 mg Sertraline HCl (Zoloft) 25 mg PO DAILY [facility] Last Admin: 09/02/18 08:42 Dose: 25 mg Sodium Chloride (Saline Flush) 10 ml FLUSH ASDIRECTED PRN PRN Reason: Keep Vein Open Last Admin: 09/01/18 18:00 Dose: 10 ml Discontinued Medications Albuterol/Ipratropium (Duoneb 3.0-0.5 Mg/3 Ml) 3 ml NEB ONETIME ONE Stop: 09/01/18 18:02 Last Admin: 09/01/18 19:02 Dose: 3 ml Budesonide (Pulmicort) 0.5 - 2 mg INH BIDRT [facility] Ceftriaxone Sodium 2 gm/ (Sodium Chloride) 100 mls @ 200 mls/hr IV ONETIME ONE Stop: 09/01/18 19:44 Last Admin: 09/01/18 19:24 Dose: 200 mls/hr Azithromycin 500 mg/ Sodium (Chloride) 250 mls @ 250 mls/hr IV ONETIME ONE Stop: 09/01/18 22:43 Last Admin: 09/01/18 22:44 Dose: 250 mls/hr Lactated Ringer's (Ringers, Lactated) 1,000 mls @ 125 mls/hr IV ASDIRECTED [facility] Last Admin: 09/01/18 22:54 Dose: 125 mls/hr Methylprednisolone Sodium Succinate (Solu-Medrol) 125 mg IVPUSH ONETIME ONE Stop: 09/01/18 19:06 Last Admin: 09/01/18 19:24 Dose: 125 mg Tiotropium Hughson (Spiriva Handihaler) 18 mcg INH DAILY [facility] - Problem List & Annotations (1) Contusion of left hip SNOMED Code(s): 78563106 Code(s): S70.02XA - CONTUSION OF LEFT HIP, INITIAL ENCOUNTER Status: Acute Current Visit: Yes Qualifiers: Encounter type: initial encounter Qualified Code(s): S70.02XA - Contusion of left hip, initial encounter (2) Pneumonia SNOMED Code(s): 423260429 Code(s): J18.9 - PNEUMONIA, UNSPECIFIED ORGANISM Status: Acute Current Visit: Yes Qualifiers: Pneumonia type: due to unspecified organism Laterality: left Lung location: lower lobe of lung Qualified Code(s): J18.1 - Lobar pneumonia, unspecified organism (3) Renal insufficiency SNOMED Code(s): 504899338, 141022367 Code(s): N28.9 - DISORDER OF KIDNEY AND URETER, UNSPECIFIED Status: Acute Current Visit: Yes (4) Anemia SNOMED Code(s): 364101383 Code(s): D64.9 - ANEMIA, UNSPECIFIED Status: Chronic Priority: High Current Visit: Yes Qualifiers: Anemia type: unspecified type Qualified Code(s): D64.9 - Anemia, unspecified - My Orders Last 24 Hours: My Active Orders 09/01/18 21:41 Consult to Case Management/Missionary Coordinator [CONS] Routine PT Evaluation and Treatment [CONS] Routine 09/01/18 21:42 OT Evaluation and Treatment [CONS] Routine 09/01/18 21:55 Resuscitation Status Routine 09/01/18 22:25 Height and Weight [RC] 04 VTE/DVT Education [RC] Vital Signs [RC] Q4HR Acetaminophen [Tylenol] 650 mg PO Q4H PRN Acetaminophen/HYDROcodone [[place] 325-5 MG] 1 tab PO Q4H PRN Bisacodyl [Dulcolax] 5 mg PO DAILY PRN Ondansetron [Zofran ODT] 4 mg PO Q6H PRN 09/01/18 22:26 Intake and Output [RC] 04,16 Sequential Compression Device [OM.PC] Per Unit Routine 09/01/18 22:28 Antiembolic Devices [RC] 09/01/18 22:30 Polyethylene Glycol 3350 [MiraLAX] 17 gm PO DAILY 09/01/18 22:31 Albuterol [Proventil Neb Soln] 2.5 mg NEB Q2H PRN 09/01/18 22:32 RT Aerosol Therapy [RC] ASDIRECTED 09/01/18 22:45 guaiFENesin [Mucinex] 600 mg PO BID 09/01/18 23:00 CULTURE SPUTUM + SMEAR [RM] Routine RESPIRATORY PANEL Routine 09/02/18 06:00 Albuterol [Proventil HFA] 0 gm INH QIDRT Glycopyrrolate [Seebri Neohaler] 15.6 mcg IH BIDRT 09/02/18 07:00 predniSONE 40 mg PO WITHBREAKFAST 09/02/18 09:00 Cyanocobalamin (Vitamin B12) [Vitamin B12] 1,000 mcg PO DAILY Sertraline [Zoloft] 25 mg PO DAILY 09/02/18 20:00 cefTRIAXone [Rocephin] 1 gm Sodium Chloride 0.9% [Normal Saline] 100 ml IV Q24H 09/02/18 21:00 Budesonide [Pulmicort] 0.5 mg INH BIDRT Latanoprost [Xalatan 0.005% Ophth Soln] 0 ml EYELF BEDTIME 09/02/18 22:00 Azithromycin [Zithromax] 250 mg Sodium Chloride 0.9% [Normal Saline] 250 ml IV Q24H 09/02/18 Breakfast Regular Diet [DIET] 09/03/18 09:00 Ferrous Sulfate 325 mg PO Q48H - Plan Plan:: Lactic acid continues to be over 2. Continue with IV fluids and recheck in 4 hours.
[2018-09-02] MEDS ORDERED: Lactated Ringers 1,000 ML IV SCH (07:30)
[2018-09-02] MEDS: predniSONE 20 MG Tab PO SCH (07:41)
[2018-09-02] MEDS: Polyethylene Glycol 3350 Powder 17 GM Packet PO SCH (08:42)
[2018-09-02] MEDS: guaiFENesin 600 MG Tab.ER PO SCH ×2 (08:42→20:30)
[2018-09-02] MEDS: Sertraline 25 MG Tab PO SCH (08:42)
[2018-09-02] MEDS: Cyanocobalamin (Vitamin B12) 1,000 MCG Tab PO SCH (08:42)
[2018-09-02] MEDS ORDERED: ALBUTEROL INH SCH (09:00)
[2018-09-02] MEDS ORDERED: IPRATROPIUM INH SCH (09:00)
[2018-09-02] MEDS ORDERED: Tiotropium Inhaler 18 MCG Inhalation Powder Cap Kit of 5 INH SCH (09:00)
--- NOTE | 2018-09-02 10:54 | CR ---
Lumbar spine: AP, lateral and coned-down lateral views centered to the lumbosacral junction were obtained. Comparison: No prior lumbar spine imaging. Severe disc space narrowing is noted at L5-S1 with vacuum phenomena. Other disc spaces are preserved. Vertebral body heights are maintained. Pedicles are intact. Visualized transverse and spinous processes are intact. Very minimal scoliosis is seen. Bony structures are osteopenic. Vascular calcification is noted within a nondilated abdominal aorta. Impression: 1. Mild degenerative change as noted above. Osteopenia and vascular calcification is noted. 2. Nothing acute is appreciated on three-view lumbar spine exam. Diagnostic code #2
--- NOTE | 2018-09-02 10:55 | CR ---
Pelvis and left hip: AP view of the pelvis was obtained as well as AP and frog-leg lateral views of the left hip. Mild joint space narrowing seen within the right hip. Joint space within the left hip is preserved. Bony structures are osteopenic. No acute fracture or dislocation is identified. Impression: 1. Findings as noted above. Nothing acute is appreciated. Diagnostic code #2
--- NOTE | 2018-09-02 10:55 | CR ---
Chest: Frontal view of the chest was obtained. Comparison: Prior chest x-ray of 03/24/18 Heart size is normal. Tortuous thoracic aorta is seen. Interstitial fibrosis is seen within both lungs which is believed to be fairly stable from prior chest x-ray. No acute parenchymal change is seen. Lungs are hyperinflated compatible with emphysematous change. Bony structures are grossly intact. Impression: 1. Emphysematous change and mild chronic appearing interstitial fibrosis. 2. Nothing acute is appreciated. Diagnostic code #2
[2018-09-02] MEDS: Albuterol/Ipratropium 3.0-0.5 MG/3 ML Neb Soln NEB SCH ×3 (12:41→20:53)
[2018-09-02] MEDS ORDERED: Albuterol 6.7 GM Inhaler INH PRN (17:09)
[2018-09-02] MEDS ORDERED: cefTRIAXone 2 GM Vial IVPUSH SCH (20:00)
[2018-09-02] MEDS: cefTRIAXone 1 GM in Sodium Chloride 0.9% 100 ML IV SCH (20:28)
[2018-09-02] MEDS: Latanoprost 0.005% Ophth Soln 2.5 ML Bottle EYELF SCH (20:29)
[2018-09-02] MEDS: Budesonide 0.5 MG/2 ML Neb Susp INH SCH (20:53)
[2018-09-02] MEDS ORDERED: Sodium Chloride 0.9% 10 ML Syringe FLUSH PRN (21:07)
[2018-09-02] MEDS: Azithromycin 250 MG in Sodium Chloride 0.9% 250 ML IV SCH (21:19)
[2018-09-03] MEDS: Albuterol/Ipratropium 3.0-0.5 MG/3 ML Neb Soln NEB SCH ×4 (06:18→20:19)
[2018-09-03] MEDS: Budesonide 0.5 MG/2 ML Neb Susp INH SCH ×2 (06:19→20:20)
[2018-09-03] MEDS: Magnesium Oxide 400 MG Tab PO SCH ×2 (08:09→20:11)
[2018-09-03] MEDS: Cyanocobalamin (Vitamin B12) 1,000 MCG Tab PO SCH (08:09)
[2018-09-03] MEDS: Sertraline 25 MG Tab PO SCH (08:10)
[2018-09-03] MEDS: predniSONE 20 MG Tab PO SCH (08:10)
[2018-09-03] MEDS: guaiFENesin 600 MG Tab.ER PO SCH ×2 (08:11→20:11)
[2018-09-03] MEDS ORDERED: Ferrous Sulfate 325 MG Tab PO SCH ×2 (09:00→17:00)
--- NOTE | 2018-09-03 16:26 | PCM.PN ---
- General Info Date of Service: 09/03/18 Admission Dx/Problem (Free Text): Admission Diagnosis/Problem Admission Diagnosis/Problem Pneumonia Subjective Update: September 03, 2018 Patient had an uneventful night. She continues to improve. UA did grow out Escherichia coli that is sensitive to Rocephin. Strep pneumoniae urine antigen Was also positive. September 02, 2018 In to see [place] with Dr. George. This currently appears to be more of a COPD exacerbation than PNA. UA and culture is suggesting UTI. She reports she had a prior UTI and was hospitalized in March. Old records reviewed and show this was E. Coli with good sensitivities to Rocephin. Will repeat CXR tomorrow. Continue current treatment plan. Will add IS and acapella. Lactic acid was elevated this AM 6 Hrs after prior normal draw. Will repeat and continue IV fluids until then. Functional Status: Reports: Pain Controlled - Review of Systems General: Reports: No Symptoms HEENT: Reports: No Symptoms Pulmonary: Reports: Shortness of Breath, Cough Cardiovascular: Reports: No Symptoms Gastrointestinal: Reports: No Symptoms - Patient Data Vitals - Most Recent: Last Vital Signs Temp 98.1 F 09/03/18 15:50 Pulse 84 09/03/18 15:50 Resp 16 09/03/18 15:50 BP 140/64 09/03/18 15:50 Pulse Ox 97 09/03/18 15:50 Weight - Most Recent: 157 lb 4.8 oz I&O - Last 24 Hours: Intake & Output 09/03/18 09/03/18 09/03/18 06:59 14:59 22:59 Intake Total 1300 420 800 Output Total 2450 1200 Balance -1150 420 -400 Lab Results Last 24 Hours: Laboratory Results - last 24 hr 09/01/18 09/02/18 09/03/18 Range/Units 23:00 18:08 05:30 WBC 10.75 H (3.98-10.04) K/mm3 RBC 2.79 L (3.98-5.22) M/mm3 Hgb 8.6 L (11.2-15.7) gm/L Hct 27.5 L (34.1-44.9) % MCV 98.6 H (79.4-94.8) fl MCH 30.8 (25.6-32.2) pg MCHC 31.3 L (32.2-35.5) g/dl RDW Std Deviation 47.7 H (36.4-46.3) fL Plt Count 224 (182-369) K/mm3 MPV 9.1 L (9.4-12.3) fl Neut % (Auto) 79.6 H (34.0-71.1) % Lymph % (Auto) 13.0 L (19.3-51.7) % [place] % (Auto) 6.6 (4.7-12.5) % Eos % (Auto) 0.5 L (0.7-5.8) Baso % (Auto) 0.1 (0.1-1.2) % Neut # (Auto) 8.56 H (1.56-6.13) K/mm3 Lymph # (Auto) 1.40 (1.18-3.74) K/mm3 [place] # (Auto) 0.71 H (0.24-0.36) K/mm3 Eos # (Auto) 0.05 (0.04-0.36) K/mm3 Baso # (Auto) 0.01 (0.01-0.08) K/mm3 Sodium (136-145) mEq/L Potassium (3.5-5.1) mEq/L Chloride (98-107) mEq/L Carbon Dioxide (21-32) mEq/L Anion Gap (5-15) BUN (7-18) mg/dL Creatinine (0.55-1.02) mg/dL Est Cr Clr Drug Dosing mL/min Estimated GFR (MDRD) (>60) mL/min BUN/Creatinine Ratio (14-18) Glucose (83-115) mg/dL Lactic Acid 1.7 (0.4-2.0) mmol/L Calcium (8.5-10.1) mg/dL Magnesium (1.8-2.4) mg/dl C-Reactive Protein (<1.0) mg/dL Adenovirus (PCR) Not detected (Not Detected) B. pertussis DNA (PCR) Not detected (Not Detected) B.parapertussis DNA PCR Not detected (Not Detected) C. pneumoniae DNA (PCR) Not detected (Not Detected) Coronavirus (PCR) Not detected (Not Detected) Human Metapneumovir PCR Not detected (Not Detected) Influenza A (RT-PCR) Not detected (Not Detected) Influenza B (RT-PCR) Not detected (Not Detected) M. pneumoniae (PCR) Not detected (Not Detected) Parainfluen 1,2,3,4 PCR Not detected (Not Detected) RSV (PCR) Not detected (Not Detected) Entero/Rhino (PCR) Not detected (Not Detected) 09/03/18 Range/Units 05:30 WBC (3.98-10.04) K/mm3 RBC (3.98-5.22) M/mm3 Hgb (11.2-15.7) gm/L Hct (34.1-44.9) % MCV (79.4-94.8) fl MCH (25.6-32.2) pg MCHC (32.2-35.5) g/dl RDW Std Deviation (36.4-46.3) fL Plt Count (182-369) K/mm3 MPV (9.4-12.3) fl Neut % (Auto) (34.0-71.1) % Lymph % (Auto) (19.3-51.7) % [place] % (Auto) (4.7-12.5) % Eos % (Auto) (0.7-5.8) Baso % (Auto) (0.1-1.2) % Neut # (Auto) (1.56-6.13) K/mm3 Lymph # (Auto) (1.18-3.74) K/mm3 [place] # (Auto) (0.24-0.36) K/mm3 Eos # (Auto) (0.04-0.36) K/mm3 Baso # (Auto) (0.01-0.08) K/mm3 Sodium 137 (136-145) mEq/L Potassium 4.0 (3.5-5.1) mEq/L Chloride 101 (98-107) mEq/L Carbon Dioxide 30 (21-32) mEq/L Anion Gap 10.0 (5-15) BUN 27 H (7-18) mg/dL Creatinine 1.2 H (0.55-1.02) mg/dL Est Cr Clr Drug Dosing 28.21 mL/min Estimated GFR (MDRD) 43 (>60) mL/min BUN/Creatinine Ratio 22.5 H (14-18) Glucose 92 (83-115) mg/dL Lactic Acid (0.4-2.0) mmol/L Calcium 9.1 (8.5-10.1) mg/dL Magnesium 1.8 (1.8-2.4) mg/dl C-Reactive Protein 9.7 H* (<1.0) mg/dL Adenovirus (PCR) (Not Detected) B. pertussis DNA (PCR) (Not Detected) B.parapertussis DNA PCR (Not Detected) C. pneumoniae DNA (PCR) (Not Detected) Coronavirus (PCR) (Not Detected) Human Metapneumovir PCR (Not Detected) Influenza A (RT-PCR) (Not Detected) Influenza B (RT-PCR) (Not Detected) M. pneumoniae (PCR) (Not Detected) Parainfluen 1,2,3,4 PCR (Not Detected) RSV (PCR) (Not Detected) Entero/Rhino (PCR) (Not Detected) Mike Results Last 24 Hours: Microbiology 09/01/18 06:10 Urine Culture - Final Urine, Bladder Escherichia Coli 09/01/18 23:00 Gram Stain - Final Sputum - Expectorated Sputum Culture - Preliminary 09/01/18 06:10 Streptococcus pneumoniae Antigen (M - Final Urine 09/01/18 06:10 Legionella Urinary Antigen - Final Urine 09/01/18 18:25 Aerobic Blood Culture - Preliminary Blood - Venous - Lab Draw NO GROWTH AFTER 1 DAY Anaerobic Blood Culture - Preliminary NO GROWTH AFTER 1 DAY 09/01/18 18:15 Aerobic Blood Culture - Preliminary Blood - Venous NO GROWTH AFTER 1 DAY Anaerobic Blood Culture - Preliminary NO GROWTH AFTER 1 DAY Med Orders - Current: Current Medications Acetaminophen (Tylenol) 650 mg PO Q4H PRN PRN Reason: Pain (Mild 1-3)/fever Hydrocodone Bitart/Acetaminophen ([place] 325-5 Mg) 1 tab PO Q4H PRN PRN Reason: Pain (moderate 4-6) Albuterol (Proventil Neb Soln) 2.5 mg NEB Q2H PRN PRN Reason: Cough Albuterol (Proventil Hfa) 0 gm INH Q4H PRN PRN Reason: Wheezing Albuterol/Ipratropium (Duoneb 3.0-0.5 Mg/3 Ml) 3 ml NEB QIDRT [facility]IDE Last Admin: 09/03/18 15:35 Dose: 3 ml Bisacodyl (Dulcolax) 5 mg PO DAILY PRN PRN Reason: Constipation Budesonide (Pulmicort) 0.5 mg INH BIDRT [facility] Last Admin: 09/03/18 06:19 Dose: 0.5 mg Cyanocobalamin (Vitamin B12) 1,000 mcg PO DAILY [facility] Last Admin: 09/03/18 08:09 Dose: 1,000 mcg Ferrous Sulfate (Ferrous Sulfate) 325 mg PO TIDMEALS [facility] Guaifenesin (Mucinex) 600 mg PO BID [facility] Last Admin: 09/03/18 08:11 Dose: 600 mg Ceftriaxone Sodium 1 gm/ (Sodium Chloride) 100 mls @ 200 mls/hr IV Q24H [facility] Last Admin: 09/02/18 20:28 Dose: 200 mls/hr Azithromycin 250 mg/ Sodium (Chloride) 250 mls @ 250 mls/hr IV Q24H [facility] Last Admin: 09/02/18 21:19 Dose: 250 mls/hr Latanoprost (Xalatan 0.005% Ophth Soln) 0 ml EYELF BEDTIME [facility] Last Admin: 09/02/18 20:29 Dose: 1 drop Magnesium Oxide (Magnesium Oxide) 400 mg PO BID [facility] Last Admin: 09/03/18 08:09 Dose: 400 mg Ondansetron HCl (Zofran Odt) 4 mg PO Q6H PRN PRN Reason: nausea, able to take PO Prednisone (Prednisone) 40 mg PO WITHBREAKFAST [facility] Last Admin: 09/03/18 08:10 Dose: 40 mg Sertraline HCl (Zoloft) 25 mg PO DAILY [facility] Last Admin: 09/03/18 08:10 Dose: 25 mg Sodium Chloride (Saline Flush) 10 ml FLUSH ASDIRECTED PRN PRN Reason: Keep Vein Open Discontinued Medications Albuterol (Proventil Hfa) 0 gm INH QIDRT [facility] Last Admin: 09/02/18 18:37 Dose: Not Given Albuterol/Ipratropium (Duoneb 3.0-0.5 Mg/3 Ml) 3 ml NEB ONETIME ONE Stop: 09/01/18 18:02 Last Admin: 09/01/18 19:02 Dose: 3 ml Albuterol/Ipratropium (Duoneb 3.0-0.5 Mg/3 Ml) 3 ml NEB QID [facility] Last Admin: 04/19/19 20:53 Dose: 3 ml Budesonide (Pulmicort) 0.5 - 2 mg INH BIDRT [facility] Last Admin: 09/02/18 18:37 Dose: Not Given Ferrous Sulfate (Ferrous Sulfate) 325 mg PO Q48H [facility] Last Admin: 09/03/18 08:13 Dose: 325 mg Glycopyrrolate (Seebri Neohaler) 15.6 mcg IH BIDRT [facility] Last Admin: 09/02/18 20:53 Dose: Not Given Ceftriaxone Sodium 2 gm/ (Sodium Chloride) 100 mls @ 200 mls/hr IV ONETIME ONE Stop: 09/01/18 19:44 Last Admin: 09/01/18 19:24 Dose: 200 mls/hr Azithromycin 500 mg/ Sodium (Chloride) 250 mls @ 250 mls/hr IV ONETIME ONE Stop: 09/01/18 22:43 Last Admin: 09/01/18 22:44 Dose: 250 mls/hr Lactated Ringer's (Ringers, Lactated) 1,000 mls @ 125 mls/hr IV ASDIRECTED [facility] Last Admin: 09/01/18 22:54 Dose: 125 mls/hr Lactated Ringer's (Ringers, Lactated) 1,000 mls @ 75 mls/hr IV ASDIRECTED [facility] Last Admin: 09/02/18 08:12 Dose: 75 mls/hr Methylprednisolone Sodium Succinate (Solu-Medrol) 125 mg IVPUSH ONETIME ONE Stop: 09/01/18 19:06 Last Admin: 09/01/18 19:24 Dose: 125 mg Polyethylene Glycol (Miralax) 17 gm PO DAILY [facility]IDE Stop: 09/02/18 21:00 Last Admin: 09/02/18 08:42 Dose: 17 gm Sodium Chloride (Saline Flush) 10 ml FLUSH ASDIRECTED PRN PRN Reason: Keep Vein Open Last Admin: 09/01/18 18:00 Dose: 10 ml Tiotropium [place] (Spiriva Handihaler) 18 mcg INH DAILY [facility] - Exam Quality Assessment: Supplemental Oxygen General: Alert, Oriented HEENT: Pupils Reactive, Scleral Icterus Neck: Supple Lungs: Normal Respiratory Effort, Decreased Breath Sounds, Wheezing Cardiovascular: Regular Rate, Regular Rhythm Extremities: Normal Inspection, Normal Range of Motion, Non-Tender, No Pedal Edema - Problem List & Annotations (1) Contusion of left hip SNOMED Code(s): 88454340 Code(s): S70.02XA - CONTUSION OF LEFT HIP, INITIAL ENCOUNTER Status: Acute Current Visit: Yes Qualifiers: Encounter type: initial encounter Qualified Code(s): S70.02XA - Contusion of left hip, initial encounter (2) Pneumonia SNOMED Code(s): 624946826 Code(s): J18.9 - PNEUMONIA, UNSPECIFIED ORGANISM Status: Acute Current Visit: Yes Qualifiers: Pneumonia type: due to unspecified organism Laterality: left Lung location: lower lobe of lung Qualified Code(s): J18.1 - Lobar pneumonia, unspecified organism (3) Renal insufficiency SNOMED Code(s): 107207894, 531633688 Code(s): N28.9 - DISORDER OF KIDNEY AND URETER, UNSPECIFIED Status: Acute Current Visit: Yes (4) Anemia SNOMED Code(s): 101655536 Code(s): D64.9 - ANEMIA, UNSPECIFIED Status: Chronic Priority: High Current Visit: Yes Qualifiers: Anemia type: unspecified type Qualified Code(s): D64.9 - Anemia, unspecified - Problem List Review Problem List Initiated/Reviewed/Updated: Yes - My Orders Last 24 Hours: My Active Orders 09/02/18 17:09 Albuterol [Proventil HFA] See Dose Instructions INH Q4H PRN 09/02/18 20:00 cefTRIAXone [Rocephin] 1 gm Sodium Chloride 0.9% [Normal Saline] 100 ml IV Q24H 09/02/18 21:00 Budesonide [Pulmicort] 0.5 mg INH BIDRT Latanoprost [Xalatan 0.005% Ophth Soln] 0 ml EYELF BEDTIME 09/02/18 21:07 Sodium Chloride 0.9% [Saline Flush] 10 ml FLUSH ASDIRECTED PRN Convert IV to Saline Lock [OM.PC] Routine 09/02/18 22:00 Azithromycin [Zithromax] 250 mg Sodium Chloride 0.9% [Normal Saline] 250 ml IV Q24H 09/03/18 09:00 Magnesium Oxide 400 mg PO BID 09/03/18 15:25 Activity as Tolerated [RC] .Routine 09/03/18 17:00 Ferrous Sulfate 325 mg PO TIDMEALS - Plan Plan:: COPD exacerbation * 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 Lactic acid was normal last night after a large bowel movement * Blood culture was drawn in the emergency room. * Sputum culture ordered - moderate gram negative rods thus far * Strep pneumonia urine antigen positive * Rocephin given in the emergency room. * Schedule duonebs QID * Start Zithromax 250 mg a day * Prednisone 40 mg a day for 5 days * Combivent 2 puffs 4 times a day * Albuterol nebs every 2 hours when necessary * RT/IS/Acapella * Repeat CXR in 24-48 hours * Hx/o epiglottic cancer and lung cancer in remission Acute kidney injury on chronic renal insufficiency, improving * Creatinine 1.1-->1.4->1.2 --> 1.2 * BUN 25-->30-->28 --> 27 * Start IV fluids at 100 mL per hour--> decrease to 75mL/hr Anemia, stable * Acute on chronic * Hemoglobin has dropped from 10.7 this morning and 9.4; hemoglobin has dropped again to 8.6 * Repeat CBC in the morning. * prophylaxis for PTE secondary to the above UTI * Culture urine - Escherichia coli sensitive to Rocephin * Likely a symptomatic bacteriuria and decided to be treated. * Rocephin as above Left hip and knee pain * X-rays of left hip are negative but will be officially read in the morning. * Tylenol and [place] for pain. * PT and OT consult Length of stay estimated to be 3 days due to pneumonia Discharge planning consult CODE STATUS: Full code
--- NOTE | 2018-09-03 18:20 | CR ---
Chest: Two views of the chest were obtained. Comparison: Prior chest x-ray of 09/01/18. Heart size is normal. Tortuous thoracic aorta is seen. Lung markings are mildly increased which appear chronic. Lungs are hyperinflated which are compatible with emphysematous change. Bony structure show mild scoliosis within the spine with minimal degenerative change. Impression: 1. Emphysematous change. Other chronic findings as noted above. 2. Nothing acute is identified. Diagnostic code #2
[2018-09-03] MEDS: Latanoprost 0.005% Ophth Soln 2.5 ML Bottle EYELF SCH (20:10)
[2018-09-03] MEDS: cefTRIAXone 1 GM in Sodium Chloride 0.9% 100 ML IV SCH (20:12)
[2018-09-03] MEDS: Azithromycin 250 MG in Sodium Chloride 0.9% 250 ML IV SCH (22:03)
[2018-09-04] MEDS: Budesonide 0.5 MG/2 ML Neb Susp INH SCH ×2 (06:08→20:30)
[2018-09-04] MEDS: Albuterol/Ipratropium 3.0-0.5 MG/3 ML Neb Soln NEB SCH ×4 (06:08→20:30)
[2018-09-04] MEDS ORDERED: Magnesium Sulfate/Water 2 GM in Premix Bag 1 BAG IV ONE (09:35)
[2018-09-04] MEDS: Magnesium Oxide 400 MG Tab PO SCH ×2 (09:53→21:05)
[2018-09-04] MEDS: Ferrous Sulfate 325 MG Tab PO SCH ×3 (09:53→16:37)
[2018-09-04] MEDS: predniSONE 20 MG Tab PO SCH (09:53)
[2018-09-04] MEDS: Cyanocobalamin (Vitamin B12) 1,000 MCG Tab PO SCH (09:53)
[2018-09-04] MEDS: Sertraline 25 MG Tab PO SCH (09:53)
[2018-09-04] MEDS: guaiFENesin 600 MG Tab.ER PO SCH ×2 (09:53→21:46)
[2018-09-04] MEDS: Docusate Sodium 100 MG Cap PO SCH (16:37)
--- NOTE | 2018-09-04 17:41 | PCM.PN ---
- General Info Date of Service: 09/04/18 Admission Dx/Problem (Free Text): Admission Diagnosis/Problem Admission Diagnosis/Problem Pneumonia Subjective Update: September 04, 2018 Patient is doing well. She has Escherichia coli UTI and strep pneumonia a COPD exacerbation. She also continues to have hip pain which is making it difficult to ambulate. September 03, 2018 Patient had an uneventful night. She continues to improve. UA did grow out Escherichia coli that is sensitive to Rocephin. Strep pneumoniae urine antigen Was also positive. September 02, 2018 In to see Ofelia with Dr. George. This currently appears to be more of a COPD exacerbation than PNA. UA and culture is suggesting UTI. She reports she had a prior UTI and was hospitalized in March. Old records reviewed and show this was E. Coli with good sensitivities to Rocephin. Will repeat CXR tomorrow. Continue current treatment plan. Will add IS and acapella. Lactic acid was elevated this AM 6 Hrs after prior normal draw. Will repeat and continue IV fluids until then. Functional Status: Denies: Pain Controlled - Review of Systems General: Reports: No Symptoms HEENT: Reports: No Symptoms Pulmonary: Reports: Shortness of Breath, Cough, Wheezing Cardiovascular: Reports: No Symptoms Gastrointestinal: Reports: No Symptoms - Patient Data Vitals - Most Recent: Last Vital Signs Temp 98.1 F 09/04/18 15:38 Pulse 90 09/04/18 15:38 Resp 22 H 09/04/18 15:38 BP 131/51 L 09/04/18 15:38 Pulse Ox 93 L 09/04/18 15:38 Weight - Most Recent: 158 lb 6.4 oz I&O - Last 24 Hours: Intake & Output 09/04/18 09/04/18 09/04/18 06:59 14:59 22:59 Intake Total 1150 480 700 Output Total 2300 1100 Balance -1150 480 -400 Lab Results Last 24 Hours: Laboratory Results - last 24 hr 09/04/18 09/04/18 Range/Units 05:44 05:44 WBC 12.44 H (3.98-10.04) K/mm3 RBC 2.74 L (3.98-5.22) M/mm3 Hgb 8.5 L (11.2-15.7) gm/L Hct 27.1 L (34.1-44.9) % MCV 98.9 H (79.4-94.8) fl MCH 31.0 (25.6-32.2) pg MCHC 31.4 L (32.2-35.5) g/dl RDW Std Deviation 47.8 H (36.4-46.3) fL Plt Count 251 (182-369) K/mm3 MPV 9.5 (9.4-12.3) fl Neut % (Auto) 82.5 H (34.0-71.1) % Lymph % (Auto) 10.5 L (19.3-51.7) % [place] % (Auto) 6.5 (4.7-12.5) % Eos % (Auto) 0.2 L (0.7-5.8) Baso % (Auto) 0.1 (0.1-1.2) % Neut # (Auto) 10.26 H (1.56-6.13) K/mm3 Lymph # (Auto) 1.30 (1.18-3.74) K/mm3 [place] # (Auto) 0.81 H (0.24-0.36) K/mm3 Eos # (Auto) 0.03 L (0.04-0.36) K/mm3 Baso # (Auto) 0.01 (0.01-0.08) K/mm3 Sodium 133 L (136-145) mEq/L Potassium 4.1 (3.5-5.1) mEq/L Chloride 98 (98-107) mEq/L Carbon Dioxide 31 (21-32) mEq/L Anion Gap 8.1 (5-15) BUN 22 H (7-18) mg/dL Creatinine 1.0 (0.55-1.02) mg/dL Est Cr Clr Drug Dosing 33.86 mL/min Estimated GFR (MDRD) 53 (>60) mL/min BUN/Creatinine Ratio 22.0 H (14-18) Glucose 83 (83-115) mg/dL Calcium 9.1 (8.5-10.1) mg/dL Magnesium 1.7 L (1.8-2.4) mg/dl C-Reactive Protein 5.1 H* (<1.0) mg/dL Mike Results Last 24 Hours: Microbiology 09/01/18 23:00 Gram Stain - Final Sputum - Expectorated Sputum Culture - Final 09/01/18 18:25 Aerobic Blood Culture - Preliminary Blood - Venous - Lab Draw NO GROWTH AFTER 2 DAYS Anaerobic Blood Culture - Preliminary NO GROWTH AFTER 2 DAYS 09/01/18 18:15 Aerobic Blood Culture - Preliminary Blood - Venous NO GROWTH AFTER 2 DAYS Anaerobic Blood Culture - Preliminary NO GROWTH AFTER 2 DAYS Med Orders - Current: Current Medications Acetaminophen (Tylenol) 650 mg PO Q4H PRN PRN Reason: Pain (Mild 1-3)/fever Hydrocodone Bitart/Acetaminophen ([place] 325-5 Mg) 1 tab PO Q4H PRN PRN Reason: Pain (moderate 4-6) Albuterol (Proventil Neb Soln) 2.5 mg NEB Q2H PRN PRN Reason: Cough Albuterol (Proventil Hfa) 0 gm INH Q4H PRN PRN Reason: Wheezing Albuterol/Ipratropium (Duoneb 3.0-0.5 Mg/3 Ml) 3 ml NEB QIDRT [facility] Last Admin: 09/04/18 15:06 Dose: 3 ml Azithromycin (Zithromax) 250 mg PO 2200 [facility] Stop: 09/05/18 22:01 Bisacodyl (Dulcolax) 5 mg PO DAILY PRN PRN Reason: Constipation Budesonide (Pulmicort) 0.5 mg INH BIDRT [facility] Last Admin: 09/04/18 06:08 Dose: 0.5 mg Cyanocobalamin (Vitamin B12) 1,000 mcg PO DAILY [facility] Last Admin: 09/04/18 09:53 Dose: 1,000 mcg Docusate Sodium (Colace) 100 mg PO DAILY [facility] Last Admin: 09/04/18 16:37 Dose: 100 mg Ferrous Sulfate (Ferrous Sulfate) 325 mg PO TID@0800,1100,1700 [facility] Last Admin: 09/04/18 16:37 Dose: 325 mg Guaifenesin (Mucinex) 600 mg PO BID [facility] Last Admin: 09/04/18 09:53 Dose: 600 mg Ceftriaxone Sodium 1 gm/ (Sodium Chloride) 100 mls @ 200 mls/hr IV Q24H [facility] Last Admin: 09/03/18 20:12 Dose: 200 mls/hr Latanoprost (Xalatan 0.005% Ophth Soln) 0 ml EYELF BEDTIME [facility] Last Admin: 09/03/18 20:10 Dose: 1 drop Magnesium Oxide (Magnesium Oxide) 400 mg PO BID [facility] Last Admin: 09/04/18 09:53 Dose: 400 mg Ondansetron HCl (Zofran Odt) 4 mg PO Q6H PRN PRN Reason: nausea, able to take PO Prednisone (Prednisone) 40 mg PO DAILY@0800 [facility] Last Admin: 09/04/18 09:53 Dose: 40 mg Sertraline HCl (Zoloft) 25 mg PO DAILY [facility] Last Admin: 09/04/18 09:53 Dose: 25 mg Sodium Chloride (Saline Flush) 10 ml FLUSH ASDIRECTED PRN PRN Reason: Keep Vein Open Discontinued Medications Albuterol (Proventil Hfa) 0 gm INH QIDRT [facility] Last Admin: 09/02/18 18:37 Dose: Not Given Albuterol/Ipratropium (Duoneb 3.0-0.5 Mg/3 Ml) 3 ml NEB ONETIME ONE Stop: 09/01/18 18:02 Last Admin: 09/01/18 19:02 Dose: 3 ml Albuterol/Ipratropium (Duoneb 3.0-0.5 Mg/3 Ml) 3 ml NEB QID [facility] Last Admin: 09/02/18 20:53 Dose: 3 ml Budesonide (Pulmicort) 0.5 - 2 mg INH BIDRT [facility] Last Admin: 09/02/18 18:37 Dose: Not Given Ferrous Sulfate (Ferrous Sulfate) 325 mg PO Q48H [facility] Last Admin: 09/03/18 08:13 Dose: 325 mg Ferrous Sulfate (Ferrous Sulfate) 325 mg PO TIDMEALS [facility] Last Admin: 09/03/18 17:27 Dose: 325 mg Glycopyrrolate (Seebri Neohaler) 15.6 mcg IH BIDRT [facility] Last Admin: 09/02/18 20:53 Dose: Not Given Ceftriaxone Sodium 2 gm/ (Sodium Chloride) 100 mls @ 200 mls/hr IV ONETIME ONE Stop: 09/01/18 19:44 Last Admin: 09/01/18 19:24 Dose: 200 mls/hr Azithromycin 500 mg/ Sodium (Chloride) 250 mls @ 250 mls/hr IV ONETIME ONE Stop: 09/01/18 22:43 Last Admin: 09/01/18 22:44 Dose: 250 mls/hr Lactated Ringer's (Ringers, Lactated) 1,000 mls @ 125 mls/hr IV ASDIRECTED [facility] Last Admin: 09/01/18 22:54 Dose: 125 mls/hr Lactated Ringer's (Ringers, Lactated) 1,000 mls @ 75 mls/hr IV ASDIRECTED [facility] Last Admin: 09/02/18 08:12 Dose: 75 mls/hr Azithromycin 250 mg/ Sodium (Chloride) 250 mls @ 250 mls/hr IV Q24H [facility] Last Admin: 09/03/18 22:03 Dose: 250 mls/hr Magnesium Sulfate 2 gm/ Premix 50 mls @ 25 mls/hr IV ONETIME ONE Stop: 09/04/18 11:34 Last Admin: 09/04/18 09:54 Dose: 25 mls/hr Methylprednisolone Sodium Succinate (Solu-Medrol) 125 mg IVPUSH ONETIME ONE Stop: 09/01/18 19:06 Last Admin: 09/01/18 19:24 Dose: 125 mg Polyethylene Glycol (Miralax) 17 gm PO DAILY [facility] Stop: 09/02/18 21:00 Last Admin: 09/02/18 08:42 Dose: 17 gm Prednisone (Prednisone) 40 mg PO WITHBREAKFAST [facility] Last Admin: 09/03/18 08:10 Dose: 40 mg Sodium Chloride (Saline Flush) 10 ml FLUSH ASDIRECTED PRN PRN Reason: Keep Vein Open Last Admin: 09/01/18 18:00 Dose: 10 ml Tiotropium [place] (Spiriva Handihaler) 18 mcg INH DAILY [facility] - Exam Quality Assessment: Supplemental Oxygen General: Alert, Oriented Neck: Supple Lungs: Normal Respiratory Effort, Wheezing Cardiovascular: Regular Rate, Regular Rhythm GI/Abdominal Exam: Normal Bowel Sounds, Soft, Non-Tender, No Distention - Problem List & Annotations (1) Contusion of left hip SNOMED Code(s): 66125460 Code(s): S70.02XA - CONTUSION OF LEFT HIP, INITIAL ENCOUNTER Status: Acute Current Visit: Yes Qualifiers: Encounter type: initial encounter Qualified Code(s): S70.02XA - Contusion of left hip, initial encounter (2) Pneumonia SNOMED Code(s): 974082700 Code(s): J18.9 - PNEUMONIA, UNSPECIFIED ORGANISM Status: Acute Current Visit: Yes Qualifiers: Pneumonia type: due to unspecified organism Laterality: left Lung location: lower lobe of lung Qualified Code(s): J18.1 - Lobar pneumonia, unspecified organism (3) Renal insufficiency SNOMED Code(s): 733789276, 689400982 Code(s): N28.9 - DISORDER OF KIDNEY AND URETER, UNSPECIFIED Status: Acute Current Visit: Yes (4) Anemia SNOMED Code(s): 703121921 Code(s): D64.9 - ANEMIA, UNSPECIFIED Status: Chronic Priority: High Current Visit: Yes Qualifiers: Anemia type: unspecified type Qualified Code(s): D64.9 - Anemia, unspecified - Problem List Review Problem List Initiated/Reviewed/Updated: Yes - My Orders Last 24 Hours: My Active Orders 09/04/18 08:00 Ferrous Sulfate 325 mg PO TID@0800,1100,1700 predniSONE 40 mg PO DAILY@0800 09/04/18 16:00 Docusate Sodium [Colace] 100 mg PO DAILY 09/04/18 22:00 Azithromycin [Zithromax] 250 mg PO 2200 - Plan Plan:: COPD exacerbation * Checks x-ray shows emphysematous change and mild chronic fibrosis * White count is 12,400. * C-reactive protein is down to 5.1 * Blood culture was drawn in the emergency room. * Sputum culture - strep pneumonia * Strep pneumonia urine antigen positive * Rocephin. * Schedule duonebs QID * Zithromax 250 mg a day * Prednisone 40 mg a day for 5 days * Combivent 2 puffs 4 times a day * Albuterol nebs every 2 hours when necessary * RT/IS/Acapella * Hx/o epiglottic cancer and lung cancer in remission Acute kidney injury on chronic renal insufficiency, improving * Creatinine 1.1-->1.4->1.2 --> 1.2 --> 1.0 * BUN 25-->30-->28 --> 27 --> 22 * Saline lock IV Anemia, stable * Acute on chronic * Hemoglobin has dropped from 10.7 --> 9.4-->8.6 --> 8.5 * Repeat CBC in the morning. * prophylaxis for PTE secondary to the above UTI * Culture urine - Escherichia coli sensitive to Rocephin Left hip and knee pain * X-rays of left hip are negative but will be officially read in the morning. * Tylenol and [place] for pain. * PT and OT consult Length of stay estimated to be 3 days due to pneumonia Discharge planning consult CODE STATUS: Full code
[2018-09-04] MEDS: cefTRIAXone 1 GM in Sodium Chloride 0.9% 100 ML IV SCH (21:06)
[2018-09-04] MEDS: Latanoprost 0.005% Ophth Soln 2.5 ML Bottle EYELF SCH (21:06)
[2018-09-04] MEDS: Azithromycin 250 MG Tab PO SCH (21:46)
[2018-09-05] MEDS: Albuterol/Ipratropium 3.0-0.5 MG/3 ML Neb Soln NEB SCH ×3 (06:21→15:06)
[2018-09-05] MEDS: Budesonide 0.5 MG/2 ML Neb Susp INH SCH ×2 (06:21→21:57)
[2018-09-05] MEDS: Sertraline 25 MG Tab PO SCH (09:46)
[2018-09-05] MEDS: Docusate Sodium 100 MG Cap PO SCH (09:46)
[2018-09-05] MEDS: Magnesium Oxide 400 MG Tab PO SCH ×2 (09:47→20:10)
[2018-09-05] MEDS: Cyanocobalamin (Vitamin B12) 1,000 MCG Tab PO SCH (09:47)
[2018-09-05] MEDS: Ferrous Sulfate 325 MG Tab PO SCH ×3 (09:47→17:17)
[2018-09-05] MEDS: guaiFENesin 600 MG Tab.ER PO SCH ×2 (09:48→20:10)
[2018-09-05] MEDS: predniSONE 20 MG Tab PO SCH (09:48)
--- NOTE | 2018-09-05 15:20 | PCM.PN ---
- General Info Date of Service: 09/05/18 Admission Dx/Problem (Free Text): Admission Diagnosis/Problem Admission Diagnosis/Problem Pneumonia Subjective Update: In to see Ofelia. She reports she feels much better. She has no concerns or complaints. No nursing concerns. Hopeful for discharge tomorrow. Functional Status: Reports: Pain Controlled, Tolerating Diet, Ambulating, Urinating, Incentive Spirometry, Other (acapella). Denies: New Symptoms - Review of Systems General: Reports: Weakness (improved ). Denies: Fever, Fatigue, Malaise HEENT: Reports: No Symptoms. Denies: Headaches, Sore Throat Pulmonary: Reports: Pleuritic Chest Pain (right sided ). Denies: Shortness of Breath, Cough, Sputum, Wheezing Cardiovascular: Reports: No Symptoms. Denies: Chest Pain, Palpitations, Dyspnea on Exertion, Edema Gastrointestinal: Reports: No Symptoms. Denies: Abdominal Pain, Constipation, Diarrhea, Nausea, Vomiting Genitourinary: Reports: No Symptoms. Denies: Pain Musculoskeletal: Reports: No Symptoms Skin: Reports: No Symptoms Neurological: Reports: No Symptoms. Denies: Confusion Psychiatric: Reports: No Symptoms - Patient Data Vitals - Most Recent: Last Vital Signs Temp 97.7 F 09/05/18 11:33 Pulse 92 09/05/18 11:33 Resp 18 09/05/18 11:33 BP 130/48 L 09/05/18 11:33 Pulse Ox 95 09/05/18 15:06 Weight - Most Recent: 155 lb 11.2 oz I&O - Last 24 Hours: Intake & Output 09/05/18 09/05/18 09/05/18 06:59 14:59 22:59 Intake Total 1100 360 Output Total 1850 Balance -750 360 Lab Results Last 24 Hours: Laboratory Results - last 24 hr 09/05/18 09/05/18 Range/Units 05:27 05:27 WBC 9.22 (3.98-10.04) K/mm3 RBC 2.86 L (3.98-5.22) M/mm3 Hgb 9.0 L (11.2-15.7) gm/L Hct 28.0 L (34.1-44.9) % MCV 97.9 H (79.4-94.8) fl MCH 31.5 (25.6-32.2) pg MCHC 32.1 L (32.2-35.5) g/dl RDW Std Deviation 47.8 H (36.4-46.3) fL Plt Count 265 (182-369) K/mm3 MPV 9.5 (9.4-12.3) fl Neut % (Auto) 73.4 H (34.0-71.1) % Lymph % (Auto) 17.1 L (19.3-51.7) % [place] % (Auto) 8.7 (4.7-12.5) % Eos % (Auto) 0.4 L (0.7-5.8) Baso % (Auto) 0.0 L (0.1-1.2) % Neut # (Auto) 6.76 H (1.56-6.13) K/mm3 Lymph # (Auto) 1.58 (1.18-3.74) K/mm3 [place] # (Auto) 0.80 H (0.24-0.36) K/mm3 Eos # (Auto) 0.04 (0.04-0.36) K/mm3 Baso # (Auto) 0.00 L (0.01-0.08) K/mm3 Sodium 134 L (136-145) mEq/L Potassium 4.3 (3.5-5.1) mEq/L Chloride 98 (98-107) mEq/L Carbon Dioxide 30 (21-32) mEq/L Anion Gap 10.3 (5-15) BUN 22 H (7-18) mg/dL Creatinine 1.0 (0.55-1.02) mg/dL Est Cr Clr Drug Dosing 33.86 mL/min Estimated GFR (MDRD) 53 (>60) mL/min BUN/Creatinine Ratio 22.0 H (14-18) Glucose 86 (83-115) mg/dL Calcium 9.3 (8.5-10.1) mg/dL Magnesium 2.4 (1.8-2.4) mg/dl C-Reactive Protein 8.6 H* (<1.0) mg/dL Mike Results Last 24 Hours: Microbiology 09/01/18 18:25 Aerobic Blood Culture - Preliminary Blood - Venous - Lab Draw NO GROWTH AFTER 3 DAYS Anaerobic Blood Culture - Preliminary NO GROWTH AFTER 3 DAYS 09/01/18 18:15 Aerobic Blood Culture - Preliminary Blood - Venous NO GROWTH AFTER 3 DAYS Anaerobic Blood Culture - Preliminary NO GROWTH AFTER 3 DAYS 09/01/18 23:00 Gram Stain - Final Sputum - Expectorated Sputum Culture - Final Med Orders - Current: Current Medications Acetaminophen (Tylenol) 650 mg PO Q4H PRN PRN Reason: Pain (Mild 1-3)/fever Hydrocodone Bitart/Acetaminophen ([place] 325-5 Mg) 1 tab PO Q4H PRN PRN Reason: Pain (moderate 4-6) Albuterol (Proventil Neb Soln) 2.5 mg NEB Q2H PRN PRN Reason: Cough Albuterol (Proventil Hfa) 0 gm INH Q4H PRN PRN Reason: Wheezing Albuterol/Ipratropium (Duoneb 3.0-0.5 Mg/3 Ml) 3 ml NEB QIDRT [facility] Last Admin: 09/05/18 15:06 Dose: 3 ml Azithromycin (Zithromax) 250 mg PO 2200 [facility] Stop: 09/05/18 22:01 Last Admin: 09/04/18 21:46 Dose: 250 mg Bisacodyl (Dulcolax) 5 mg PO DAILY PRN PRN Reason: Constipation Budesonide (Pulmicort) 0.5 mg INH BIDRT [facility] Last Admin: 09/05/18 06:21 Dose: 0.5 mg Cyanocobalamin (Vitamin B12) 1,000 mcg PO DAILY [facility] Last Admin: 09/05/18 09:47 Dose: 1,000 mcg Docusate Sodium (Colace) 100 mg PO DAILY [facility] Last Admin: 09/05/18 09:46 Dose: 100 mg Ferrous Sulfate (Ferrous Sulfate) 325 mg PO TID@0800,1100,1700 [facility] Last Admin: 09/05/18 11:30 Dose: 325 mg Guaifenesin (Mucinex) 600 mg PO BID [facility] Last Admin: 09/05/18 09:48 Dose: 600 mg Ceftriaxone Sodium 1 gm/ (Sodium Chloride) 100 mls @ 200 mls/hr IV Q24H [facility] Last Admin: 09/04/18 21:06 Dose: 200 mls/hr Latanoprost (Xalatan 0.005% Ophth Soln) 0 ml EYELF BEDTIME [facility] Last Admin: 09/04/18 21:06 Dose: 1 drop Magnesium Oxide (Magnesium Oxide) 400 mg PO BID [facility] Last Admin: 09/05/18 09:47 Dose: 400 mg Ondansetron HCl (Zofran Odt) 4 mg PO Q6H PRN PRN Reason: nausea, able to take PO Prednisone (Prednisone) 40 mg PO DAILY@0800 [facility] Last Admin: 09/05/18 09:48 Dose: 40 mg Sertraline HCl (Zoloft) 25 mg PO DAILY [facility] Last Admin: 09/05/18 09:46 Dose: 25 mg Sodium Chloride (Saline Flush) 10 ml FLUSH ASDIRECTED PRN PRN Reason: Keep Vein Open Discontinued Medications Albuterol (Proventil Hfa) 0 gm INH QIDRT [facility] Last Admin: 09/02/18 18:37 Dose: Not Given Albuterol/Ipratropium (Duoneb 3.0-0.5 Mg/3 Ml) 3 ml NEB ONETIME ONE Stop: 09/01/18 18:02 Last Admin: 09/01/18 19:02 Dose: 3 ml Albuterol/Ipratropium (Duoneb 3.0-0.5 Mg/3 Ml) 3 ml NEB QID [facility] Last Admin: 09/02/18 20:53 Dose: 3 ml Budesonide (Pulmicort) 0.5 - 2 mg INH BIDRT [facility] Last Admin: 09/02/18 18:37 Dose: Not Given Ferrous Sulfate (Ferrous Sulfate) 325 mg PO Q48H [facility] Last Admin: 09/03/18 08:13 Dose: 325 mg Ferrous Sulfate (Ferrous Sulfate) 325 mg PO TIDMEALS [facility] Last Admin: 09/03/18 17:27 Dose: 325 mg Glycopyrrolate (Seebri Neohaler) 15.6 mcg IH BIDRT [facility] Last Admin: 09/02/18 20:53 Dose: Not Given Ceftriaxone Sodium 2 gm/ (Sodium Chloride) 100 mls @ 200 mls/hr IV ONETIME ONE Stop: 09/01/18 19:44 Last Admin: 09/01/18 19:24 Dose: 200 mls/hr Azithromycin 500 mg/ Sodium (Chloride) 250 mls @ 250 mls/hr IV ONETIME ONE Stop: 09/01/18 22:43 Last Admin: 09/01/18 22:44 Dose: 250 mls/hr Lactated Ringer's (Ringers, Lactated) 1,000 mls @ 125 mls/hr IV ASDIRECTED [facility] Last Admin: 09/01/18 22:54 Dose: 125 mls/hr Lactated Ringer's (Ringers, Lactated) 1,000 mls @ 75 mls/hr IV ASDIRECTED [facility] Last Admin: 09/02/18 08:12 Dose: 75 mls/hr Azithromycin 250 mg/ Sodium (Chloride) 250 mls @ 250 mls/hr IV Q24H [facility] Last Admin: 09/03/18 22:03 Dose: 250 mls/hr Magnesium Sulfate 2 gm/ Premix 50 mls @ 25 mls/hr IV ONETIME ONE Stop: 09/04/18 11:34 Last Admin: 09/04/18 09:54 Dose: 25 mls/hr Methylprednisolone Sodium Succinate (Solu-Medrol) 125 mg IVPUSH ONETIME ONE Stop: 09/01/18 19:06 Last Admin: 09/01/18 19:24 Dose: 125 mg Polyethylene Glycol (Miralax) 17 gm PO DAILY [facility] Stop: 09/02/18 21:00 Last Admin: 09/02/18 08:42 Dose: 17 gm Prednisone (Prednisone) 40 mg PO WITHBREAKFAST [facility] Last Admin: 09/03/18 08:10 Dose: 40 mg Sodium Chloride (Saline Flush) 10 ml FLUSH ASDIRECTED PRN PRN Reason: Keep Vein Open Last Admin: 09/01/18 18:00 Dose: 10 ml Tiotropium [place] (Spiriva Handihaler) 18 mcg INH DAILY [facility] - Exam Quality Assessment: DVT Prophylaxis General: Alert, Oriented, Cooperative, No Acute Distress HEENT: Pupils Equal, Pupils Reactive, EOMI, Mucous Membr. Moist/[place] Neck: Supple, Trachea Midline Lungs: Normal Respiratory Effort, Decreased Breath Sounds. No: Rhonchi, Wheezing Cardiovascular: Regular Rate, Regular Rhythm GI/Abdominal Exam: Normal Bowel Sounds, Soft, Non-Tender, No Distention, No Abnormal Bruit (Female) Exam: Deferred Back Exam: Normal Inspection, Full Range of Motion Extremities: Normal Inspection, Normal Range of Motion, Non-Tender, No Pedal Edema, Normal Capillary Refill Peripheral Pulses: 2+: Radial (L), Radial (R), Dorsalis Pedis (L), Dorsalis Pedis (R) Skin: Warm, Dry, Intact Neurological: No New Focal Deficit Psy/Mental Status: Alert, Normal Affect, Normal Mood - Problem List & Annotations (1) COPD exacerbation SNOMED Code(s): 247268286 Code(s): J44.1 - CHRONIC OBSTRUCTIVE PULMONARY DISEASE W (ACUTE) EXACERBATION Status: Acute Current Visit: Yes (2) Contusion of left hip SNOMED Code(s): 65613180 Code(s): S70.02XA - CONTUSION OF LEFT HIP, INITIAL ENCOUNTER Status: Acute Current Visit: Yes Qualifiers: Encounter type: initial encounter Qualified Code(s): S70.02XA - Contusion of left hip, initial encounter (3) Fall SNOMED Code(s): 8695326, 178959340 Code(s): W19.XXXA - UNSPECIFIED FALL, INITIAL ENCOUNTER Status: Acute Priority: High Current Visit: Yes Qualifiers: Encounter type: initial encounter Qualified Code(s): W19.XXXA - Unspecified fall, initial encounter (4) UTI (urinary tract infection) SNOMED Code(s): 90211640 Code(s): N39.0 - URINARY TRACT INFECTION, SITE NOT SPECIFIED Status: Acute Priority: High Current Visit: No Qualifiers: Urinary tract infection type: site unspecified Hematuria presence: without hematuria Qualified Code(s): N39.0 - Urinary tract infection, site not specified (5) Generalized weakness SNOMED Code(s): 53854632 Code(s): R53.1 - WEAKNESS Status: Resolved Priority: High Current Visit : No (6) Anemia SNOMED Code(s): 342067024 Code(s): D64.9 - ANEMIA, UNSPECIFIED Status: Chronic Priority: High Current Visit: Yes Qualifiers: Anemia type: unspecified type Qualified Code(s): D64.9 - Anemia, unspecified (7) Streptococcal pneumonia SNOMED Code(s): 04255609 Code(s): J15.4 - PNEUMONIA DUE TO OTHER STREPTOCOCCI Status: Acute Priority: High Current Visit: Yes - Problem List Review Problem List Initiated/Reviewed/Updated: Yes - My Orders Last 24 Hours: My Active Orders 09/06/18 05:11 BASIC METABOLIC PANEL,BMP [CHEM] AM CBC WITH AUTO DIFF [HEME] AM CRP [C-REACTIVE PROTEIN] [CHEM] AM MAGNESIUM [CHEM] AM - Plan Plan:: COPD exacerbation * Checks x-ray shows emphysematous change and mild chronic fibrosis * Repeat CXR stable * White count is 12,400 -->9.2 * C-reactive protein 5.1-->8.6 * Blood culture was drawn in the emergency room -> negative * Sputum culture - POSITIVE strep pneumonia * Strep pneumonia urine antigen positive * Rocephin * Schedule duonebs QID -> decrease to PRN * Zithromax 250 mg a day * Prednisone 40 mg a day for 5 days * Combivent 2 puffs 4 times a day * Albuterol nebs every 2 hours when necessary * RT/IS/Acapella * Hx/o epiglottic cancer and lung cancer in remission Acute kidney injury on chronic renal insufficiency, improving * Creatinine 1.1-->1.4->1.2 --> 1.2 --> 1.0 * BUN 25-->30-->28 --> 27 --> 22 * Saline lock IV Anemia, stable to improved * Acute on chronic * Hemoglobin has dropped from 10.7 --> 9.4-->8.6 --> 8.5-->9.0 * monitor labs * prophylaxis for PTE secondary to the above UTI * Culture urine - Escherichia coli sensitive to Rocephin Left hip and knee pain * X-rays of left hip are negative * Tylenol and [place] for pain. * PT and OT consult Length of stay estimated to be 3 days due to pneumonia Discharge planning consult CODE STATUS: Full code
[2018-09-05] MEDS ORDERED: Albuterol/Ipratropium 3.0-0.5 MG/3 ML Neb Soln NEB PRN (15:58)
[2018-09-05] MEDS: Latanoprost 0.005% Ophth Soln 2.5 ML Bottle EYELF SCH (20:10)
[2018-09-05] MEDS: cefTRIAXone 1 GM in Sodium Chloride 0.9% 100 ML IV SCH (20:12)
[2018-09-05] MEDS: Azithromycin 250 MG Tab PO SCH (21:52)
[2018-09-06] MEDS: Budesonide 0.5 MG/2 ML Neb Susp INH SCH (05:58)
--- NOTE | 2018-09-06 06:28 | PCM.DCSUM1 ---
Discharge Summary - Hospital Course HPI Initial Comments: This 82-year-old female that lives at the [facility] return to the emergency room at 1700 tonight secondary to left hip and knee pain. Patient fell approximately 3:00 in the morning, and was seen in the emergency room. CT scan of the head was performed and at that time she did not complain of hip or knee pain. She did have a skin tear on her left arm. Patient lives in assisted living community and she has to be able to be fairly independent to live there. She states now she cannot get up or down to the commode because of pain. She also has a productive yellow cough. It is not any different than normal. She smoked for 25 years and stopped in 2008 after a biopsy. 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 Last night in the emergency room she did have 5-10 WBCs in her urine with many bacteria. In the emergency room tonight it was noted that her white count had increased a little bit to 15,000 and a chest x-ray showed right lower lobe pneumonia. It was felt to bring her in because of the diagnosis of pneumonia. She is normally on 2 L of nasal cannula at home. Patient also states that she has not had a bowel movement in 3 days. She usually uses a stool softener and grape juice to help move her bowels. Diagnosis: Stroke: No - Discharge Data Discharge Date: 09/06/18 (Admit date: ) Discharge Disposition: DC/Tfer to Other 70 Condition: Good - Discharge Diagnosis/Problem(s) (1) COPD exacerbation SNOMED Code(s): 552062879 ICD Code: J44.1 - CHRONIC OBSTRUCTIVE PULMONARY DISEASE W (ACUTE) EXACERBATION Status: Acute Current Visit: Yes (2) Contusion of left hip SNOMED Code(s): 98631659 ICD Code: S70.02XA - CONTUSION OF LEFT HIP, INITIAL ENCOUNTER Status: Acute Current Visit: Yes Qualifiers: Encounter type: initial encounter Qualified Code(s): S70.02XA - Contusion of left hip, initial encounter (3) Fall SNOMED Code(s): 1616622, 691399925 ICD Code: W19.XXXA - UNSPECIFIED FALL, INITIAL ENCOUNTER Status: Acute Priority: High Current Visit: Yes Qualifiers: Encounter type: initial encounter Qualified Code(s): W19.XXXA - Unspecified fall, initial encounter (4) UTI (urinary tract infection) SNOMED Code(s): 17545081 ICD Code: N39.0 - URINARY TRACT INFECTION, SITE NOT SPECIFIED Status: Acute Priority: High Current Visit: No Qualifiers: Urinary tract infection type: acute cystitis Hematuria presence: without hematuria Qualified Code(s): N30.00 - Acute cystitis without hematuria (5) Generalized weakness SNOMED Code(s): 78594142 ICD Code: R53.1 - WEAKNESS Status: Resolved Priority: High Current Visit: No (6) Anemia SNOMED Code(s): 233233636 ICD Code: D64.9 - ANEMIA, UNSPECIFIED Status: Chronic Priority: High Current Visit: Yes Qualifiers: Anemia type: unspecified type Qualified Code(s): D64.9 - Anemia, unspecified (7) Streptococcal pneumonia SNOMED Code(s): 93025800 ICD Code: J15.4 - PNEUMONIA DUE TO OTHER STREPTOCOCCI Status: Acute Priority: High Current Visit: Yes - Patient Summary/Data Consults: Consultations 09/01/18 21:41 Consult to Case Management/Induction Brazer [CONS] Routine PT Evaluation and Treatment [CONS] Routine 09/01/18 21:42 OT Evaluation and Treatment [CONS] Routine 09/02/18 07:34 Consult to Respiratory Therapy [Respiratory Care Assess and Treatment] [CONS] Routine Labs Pending at D/C: None Recommended Follow-up Testing/Procedures: Follow-up with PCP within 7-10 days. Recommend outpatient PFT once symptoms resolve. Hospital Course: COPD exacerbation * Checks x-ray shows emphysematous change and mild chronic fibrosis * Repeat CXR stable * White count is 12,400 -->9.2-->9.18 * C-reactive protein 5.1-->8.6-->4.1 * Blood culture was drawn in the emergency room -> negative * Sputum culture - POSITIVE strep pneumonia * Strep pneumonia urine antigen positive * Rocephin * Schedule duonebs QID -> decrease to PRN * Zithromax 250 mg a day * Prednisone 40 mg a day for 5 days * Combivent 2 puffs 4 times a day * Albuterol nebs every 2 hours when necessary * RT/IS/Acapella * Hx/o epiglottic cancer and lung cancer in remission Acute kidney injury on chronic renal insufficiency, improving * Creatinine 1.1-->1.4->1.2 --> 1.2 --> 1.0 * BUN 25-->30-->28 --> 27 --> 22 * Saline lock IV Anemia, stable to improved * Acute on chronic * Hemoglobin has dropped from 10.7 --> 9.4-->8.6 --> 8.5-->9.0 * monitor labs * prophylaxis for PTE secondary to the above UTI * Culture urine - Escherichia coli sensitive to Rocephin Left hip and knee pain * X-rays of left hip are negative * Tylenol and Rincon for pain. * PT and OT consult Length of stay estimated to be 3 days due to pneumonia Discharge planning consult CODE STATUS: Full code Ofelia presented to the ED with left hip and knee pain secondary to fall. Imaging and workup further this revealed nothing acute however she was found to have a possible pneumonia. Once on the floor was noted she was likely having a COPD exacerbation component as well as she was quite wheezy. She was started on azithromycin and a 40 mg by mouth daily prednisone. She is also given scheduled DuoNeb's. I'll was 12.4 and this continued to trend downward as did her CRP. Chest x-ray was negative for anything acute and did show emphysematous change and mild chronic fibrosis. Repeat chest x-ray remained stable. Creatinine was elevated at her GFR was down so IV fluids were given. She is noted to be anemic and her hemoglobin did trend down, likely secondary to dilution from IV fluids. She was given 3 times a day iron supplementation. This was changed back to her usual home dose on discharge. Urine was suggestive of a UTI and culture did grow out Escherichia coli. On to be susceptible to Rocephin. Infectious workup did show positive strep pneumonia as well. This was also treated with the Rocephin. She received 5 days of treatment and will be discharged on oral Keflex for 2 more days. She was also prescribed a Medrol Dosepak. Home medications should be continued. She received 5 more days of twice a day Mucinex. Electrolytes were supplemented and she did work with PT/OT. They deemed her appropriate for return home. She is instructed to follow-up with her primary care provider within 7-10 days, sooner if needed. She was instructed to return to the emergency room or contact her primary care provider should symptoms return or worsen. Recommend outpatient PFT once symptoms resolve to gauge her baseline COPD as she reports it has been several years she has had a test. She was discharged today. - Patient Instructions Diet: Usual Diet as Tolerated Activity: As Tolerated Showering/Bathing: May Shower Notify Provider of: Fever, Increased Pain, Nausea and/or Vomiting - Discharge Plan *PRESCRIPTION DRUG MONITORING PROGRAM REVIEWED*: No *COPY OF PRESCRIPTION DRUG MONITORING REPORT IN PATIENT KAIDEN: No Prescriptions/Med Rec: Cephalexin [Keflex] 500 mg PO BID #5 capsule guaiFENesin [Mucinex] 600 mg PO BID #10 tab.er methylPREDNISolone [Medrol] 4 mg PO ASDIRECTED #1 dosepk Home Medications: Home Meds Albuterol/Ipratropium [Combivent Respimat] 1 - 2 puff INH QID 12/21/14 [History] Ascorbic Acid [Vitamin C] 1 tab PO DAILY 12/21/14 [History] Budesonide [Pulmicort] 1 inh NEB BID 12/21/14 [History] Multivitamin [Multivitamins] 1 tab PO DAILY 12/21/14 [History] Sertraline [Zoloft] 25 mg PO DAILY 12/21/14 [History] Vitamin E (dl, acetate) [Vitamin E] 1 cap PO DAILY 12/21/14 [History] Ergocalciferol (Vitamin D2) [Vitamin D] 400 unit PO DAILY 08/19/16 [History] Ferrous Sulfate [Iron] 325 mg PO ASDIRECTED 08/19/16 [History] Cyanocobalamin (Vitamin B-12) [Vitamin B-12] 1 tab PO DAILY 03/25/18 [History] Latanoprost 1 drop EYELF BEDTIME 09/02/18 [History] Cephalexin [Keflex] 500 mg PO BID #5 capsule 09/06/18 [Rx] guaiFENesin [Mucinex] 600 mg PO BID #10 tab.er 09/06/18 [Rx] methylPREDNISolone [Medrol] 4 mg PO ASDIRECTED #1 dosepk 09/06/18 [Rx] Oxygen Therapy Mode: Room Air Patient Handouts: Urinary Tract Infection, Adult, Kegel Exercises, Fall Prevention in the Home, Adult, Community-Acquired Pneumonia, Adult, [id number] Referrals: Deonte Chambers MD [Primary Care Provider] - 09/15/18 10:00 am (Please follow-up with your primary care doctor, Dr. Chambers, on September, 2 at 10:00 am. ) - Discharge Summary/Plan Comment DC Time >30 min.: Yes (40 minutes ) - General Info Date of Service: 09/06/18 Admission Dx/Problem (Free Text: Admission Diagnosis/Problem Admission Diagnosis/Problem Pneumonia Functional Status: Reports: Pain Controlled, Tolerating Diet, Ambulating, Urinating, Incentive Spirometry, Other (acapella ). Denies: New Symptoms - Review of Systems General: Reports: No Symptoms. Denies: Fever, Weakness, Fatigue, Malaise HEENT: Reports: No Symptoms. Denies: Headaches, Sore Throat Pulmonary: Reports: Cough (improved ), Wheezing (Chronic ). Denies: Shortness of Breath, Pleuritic Chest Pain, Sputum Cardiovascular: Reports: No Symptoms. Denies: Chest Pain, Palpitations, Dyspnea on Exertion, Edema Gastrointestinal: Reports: No Symptoms. Denies: Abdominal Pain, Constipation, Diarrhea, Nausea, Vomiting Genitourinary: Reports: No Symptoms. Denies: Pain Musculoskeletal: Reports: Joint Pain (left hip and knee - improving ) Skin: Reports: No Symptoms Neurological: Reports: No Symptoms. Denies: Confusion Psychiatric: Reports: No Symptoms - Patient Data Vitals - Most Recent: Last Vital Signs Temp 97.3 F 09/06/18 04:39 Pulse 99 09/06/18 04:39 Resp 16 09/06/18 04:39 BP 124/73 09/06/18 04:39 Pulse Ox 97 09/06/18 06:00 Weight - Most Recent: 156 lb 14.4 oz I&O - Last 24 hours: Intake & Output 09/05/18 09/05/18 09/06/18 14:59 22:59 06:59 Intake Total 360 1700 1275 Output Total 2500 1300 Balance 360 -800 -25 Lab Results - Last 24 hrs: Laboratory Results - last 24 hr 09/05/18 09/05/18 Range/Units 05:27 05:27 WBC 9.22 (3.98-10.04) K/mm3 RBC 2.86 L (3.98-5.22) M/mm3 Hgb 9.0 L (11.2-15.7) gm/L Hct 28.0 L (34.1-44.9) % MCV 97.9 H (79.4-94.8) fl MCH 31.5 (25.6-32.2) pg MCHC 32.1 L (32.2-35.5) g/dl RDW Std Deviation 47.8 H (36.4-46.3) fL Plt Count 265 (182-369) K/mm3 MPV 9.5 (9.4-12.3) fl Neut % (Auto) 73.4 H (34.0-71.1) % Lymph % (Auto) 17.1 L (19.3-51.7) % [place] % (Auto) 8.7 (4.7-12.5) % Eos % (Auto) 0.4 L (0.7-5.8) Baso % (Auto) 0.0 L (0.1-1.2) % Neut # (Auto) 6.76 H (1.56-6.13) K/mm3 Lymph # (Auto) 1.58 (1.18-3.74) K/mm3 [place] # (Auto) 0.80 H (0.24-0.36) K/mm3 Eos # (Auto) 0.04 (0.04-0.36) K/mm3 Baso # (Auto) 0.00 L (0.01-0.08) K/mm3 Sodium 134 L (136-145) mEq/L Potassium 4.3 (3.5-5.1) mEq/L Chloride 98 (98-107) mEq/L Carbon Dioxide 30 (21-32) mEq/L Anion Gap 10.3 (5-15) BUN 22 H (7-18) mg/dL Creatinine 1.0 (0.55-1.02) mg/dL Est Cr Clr Drug Dosing 33.86 mL/min Estimated GFR (MDRD) 53 (>60) mL/min BUN/Creatinine Ratio 22.0 H (14-18) Glucose 86 (83-115) mg/dL Calcium 9.3 (8.5-10.1) mg/dL Magnesium 2.4 (1.8-2.4) mg/dl C-Reactive Protein 8.6 H* (<1.0) mg/dL [place] Results - Last 24 hrs: Microbiology 09/01/18 18:25 Aerobic Blood Culture - Preliminary Blood - Venous - Lab Draw NO GROWTH AFTER 4 DAYS Anaerobic Blood Culture - Preliminary NO GROWTH AFTER 4 DAYS 09/01/18 18:15 Aerobic Blood Culture - Preliminary Blood - Venous NO GROWTH AFTER 4 DAYS Anaerobic Blood Culture - Preliminary NO GROWTH AFTER 4 DAYS Med Orders - Current: Current Medications Acetaminophen (Tylenol) 650 mg PO Q4H PRN PRN Reason: Pain (Mild 1-3)/fever Hydrocodone Bitart/Acetaminophen (Rincon 325-5 Mg) 1 tab PO Q4H PRN PRN Reason: Pain (moderate 4-6) Albuterol (Proventil Neb Soln) 2.5 mg NEB Q2H PRN PRN Reason: Cough Albuterol (Proventil Hfa) 0 gm INH Q4H PRN PRN Reason: Wheezing Albuterol/Ipratropium (Duoneb 3.0-0.5 Mg/3 Ml) 3 ml NEB QIDRT PRN PRN Reason: Shortness of breath/wheezing Bisacodyl (Dulcolax) 5 mg PO DAILY PRN PRN Reason: Constipation Budesonide (Pulmicort) 0.5 mg INH BIDRT [facility] Last Admin: 09/06/18 05:58 Dose: 0.5 mg Cyanocobalamin (Vitamin B12) 1,000 mcg PO DAILY [facility] Last Admin: 09/05/18 09:47 Dose: 1,000 mcg Docusate Sodium (Colace) 100 mg PO DAILY [facility] Last Admin: 09/05/18 09:46 Dose: 100 mg Ferrous Sulfate (Ferrous Sulfate) 325 mg PO TID@0800,1100,1700 [facility] Last Admin: 09/05/18 17:17 Dose: 325 mg Guaifenesin (Mucinex) 600 mg PO BID [facility] Last Admin: 09/05/18 20:10 Dose: 600 mg Ceftriaxone Sodium 1 gm/ (Sodium Chloride) 100 mls @ 200 mls/hr IV Q24H [facility] Last Admin: 09/05/18 20:12 Dose: 200 mls/hr Latanoprost (Xalatan 0.005% Ophth Soln) 0 ml EYELF BEDTIME [facility] Last Admin: 09/05/18 20:10 Dose: 1 drop Magnesium Oxide (Magnesium Oxide) 400 mg PO BID [facility] Last Admin: 04/22/19 20:10 Dose: 400 mg Ondansetron HCl (Zofran Odt) 4 mg PO Q6H PRN PRN Reason: nausea, able to take PO Prednisone (Prednisone) 40 mg PO DAILY@0800 [facility] Last Admin: 09/05/18 09:48 Dose: 40 mg Sertraline HCl (Zoloft) 25 mg PO DAILY [facility] Last Admin: 09/05/18 09:46 Dose: 25 mg Sodium Chloride (Saline Flush) 10 ml FLUSH ASDIRECTED PRN PRN Reason: Keep Vein Open Discontinued Medications Albuterol (Proventil Hfa) 0 gm INH QIDRT [facility] Last Admin: 09/02/18 18:37 Dose: Not Given Albuterol/Ipratropium (Duoneb 3.0-0.5 Mg/3 Ml) 3 ml NEB ONETIME ONE Stop: 09/01/18 18:02 Last Admin: 09/01/18 19:02 Dose: 3 ml Albuterol/Ipratropium (Duoneb 3.0-0.5 Mg/3 Ml) 3 ml NEB QID [facility] Last Admin: 09/02/18 20:53 Dose: 3 ml Albuterol/Ipratropium (Duoneb 3.0-0.5 Mg/3 Ml) 3 ml NEB QIDRT [facility] Last Admin: 09/05/18 15:06 Dose: 3 ml Azithromycin (Zithromax) 250 mg PO 2200 [facility] Stop: 09/05/18 22:01 Last Admin: 09/05/18 21:52 Dose: 250 mg Budesonide (Pulmicort) 0.5 - 2 mg INH BIDRT [facility] Last Admin: 09/02/18 18:37 Dose: Not Given Ferrous Sulfate (Ferrous Sulfate) 325 mg PO Q48H [facility] Last Admin: 09/03/18 08:13 Dose: 325 mg Ferrous Sulfate (Ferrous Sulfate) 325 mg PO TIDMEALS [facility] Last Admin: 09/03/18 17:27 Dose: 325 mg Glycopyrrolate (Seebri Neohaler) 15.6 mcg IH BIDRT [facility] Last Admin: 09/02/18 20:53 Dose: Not Given Ceftriaxone Sodium 2 gm/ (Sodium Chloride) 100 mls @ 200 mls/hr IV ONETIME ONE Stop: 09/01/18 19:44 Last Admin: 09/01/18 19:24 Dose: 200 mls/hr Azithromycin 500 mg/ Sodium (Chloride) 250 mls @ 250 mls/hr IV ONETIME ONE Stop: 09/01/18 22:43 Last Admin: 09/01/18 22:44 Dose: 250 mls/hr Lactated Ringer's (Ringers, Lactated) 1,000 mls @ 125 mls/hr IV ASDIRECTED [facility] Last Admin: 09/01/18 22:54 Dose: 125 mls/hr Lactated Ringer's (Ringers, Lactated) 1,000 mls @ 75 mls/hr IV ASDIRECTED [facility] Last Admin: 09/02/18 08:12 Dose: 75 mls/hr Azithromycin 250 mg/ Sodium (Chloride) 250 mls @ 250 mls/hr IV Q24H [facility] Last Admin: 09/03/18 22:03 Dose: 250 mls/hr Magnesium Sulfate 2 gm/ Premix 50 mls @ 25 mls/hr IV ONETIME ONE Stop: 09/04/18 11:34 Last Admin: 09/04/18 09:54 Dose: 25 mls/hr Methylprednisolone Sodium Succinate (Solu-Medrol) 125 mg IVPUSH ONETIME ONE Stop: 09/01/18 19:06 Last Admin: 09/01/18 19:24 Dose: 125 mg Polyethylene Glycol (Miralax) 17 gm PO DAILY [facility] Stop: 09/02/18 21:00 Last Admin: 09/02/18 08:42 Dose: 17 gm Prednisone (Prednisone) 40 mg PO WITHBREAKFAST [facility] Last Admin: 09/03/18 08:10 Dose: 40 mg Sodium Chloride (Saline Flush) 10 ml FLUSH ASDIRECTED PRN PRN Reason: Keep Vein Open Last Admin: 09/01/18 18:00 Dose: 10 ml Tiotropium [place] (Spiriva Handihaler) 18 mcg INH DAILY [facility] - Exam Quality Assessment: Reports: Supplemental Oxygen (2L ), DVT Prophylaxis General: Reports: Alert, Oriented, Cooperative HEENT: Reports: Pupils Equal, Pupils Reactive, EOMI, Mucous Membr. Moist/Bode Neck: Reports: Supple, Trachea Midline, No JVD Lungs: Reports: Normal Respiratory Effort, Decreased Breath Sounds, Wheezing Cardiovascular: Reports: Regular Rate, Regular Rhythm GI/Abdominal Exam: Normal Bowel Sounds, Soft, Non-Tender, No Distention, No Abnormal Bruit (Female) Exam: Deferred Rectal (Female) Exam: Deferred Back Exam: Reports: Normal Inspection, Full Range of Motion Extremities: Normal Inspection, Normal Range of Motion, Non-Tender, No Pedal Edema, Normal Capillary Refill Skin: Reports: Warm, Dry, Intact Neurological: Reports: No New Focal Deficit Psy/Mental Status: Reports: Alert, Normal Affect, Normal Mood
[2018-09-06] MEDS: predniSONE 20 MG Tab PO SCH (09:09)
[2018-09-06] MEDS: Ferrous Sulfate 325 MG Tab PO SCH ×3 (09:09→17:21)
[2018-09-06] MEDS: guaiFENesin 600 MG Tab.ER PO SCH (09:11)
[2018-09-06] MEDS: Magnesium Oxide 400 MG Tab PO SCH (09:11)
[2018-09-06] MEDS: Cyanocobalamin (Vitamin B12) 1,000 MCG Tab PO SCH (09:11)
[2018-09-06] MEDS: Docusate Sodium 100 MG Cap PO SCH (09:12)
[2018-09-06] MEDS: Sertraline 25 MG Tab PO SCH (09:12)
[2018-09-06 17:29] VITALS: BP 133/56
== END 2018-09-06 18:04 | disposition other institution (70) | DRG 190 ==
LOC: JD.ED 17:23 → JD.MS 20:33
PROVIDERS: ADMIT Family Medicine; ATTEND Family Medicine
DX: J44.1 Chronic obstructive pulmonary disease with (acute) exacerbation (principal); J13 Pneumonia due to Streptococcus pneumoniae; N17.9 Acute kidney failure, unspecified; N39.0 Urinary tract infection, site not specified; J44.0 Chronic obstructive pulmonary disease with (acute) lower respiratory infection; D64.9 Anemia, unspecified; I50.9 Heart failure, unspecified; N28.9 Disorder of kidney and ureter, unspecified; N18.9 Chronic kidney disease, unspecified; R32 Unspecified urinary incontinence; M19.90 Unspecified osteoarthritis, unspecified site; S70.02XA Contusion of left hip, initial encounter; Z86.73 Personal history of transient ischemic attack (TIA), and cerebral infarction without residual deficits; Z85.89 Personal history of malignant neoplasm of other organs and systems; Z86.74 Personal history of sudden cardiac arrest; Z91.012 Allergy to eggs; Z87.891 Personal history of nicotine dependence; Z88.1 Allergy status to other antibiotic agents; Z91.013 Allergy to seafood; Z85.118 Personal history of other malignant neoplasm of bronchus and lung; Z92.21 Personal history of antineoplastic chemotherapy; R53.1 Weakness; R26.2 Difficulty in walking, not elsewhere classified; M79.605 Pain in left leg; M25.552 Pain in left hip; Z88.8 Allergy status to other drugs, medicaments and biological substances; R06.02 Shortness of breath; R05 Cough; R11.2 Nausea with vomiting, unspecified; R07.9 Chest pain, unspecified; Z91.018 Allergy to other foods; H91.90 Unspecified hearing loss, unspecified ear; G89.29 Other chronic pain; M54.5 Low back pain; F32.9 Major depressive disorder, single episode, unspecified; L30.9 Dermatitis, unspecified; Z90.49 Acquired absence of other specified parts of digestive tract; Z92.3 Personal history of irradiation; B96.20 Unspecified Escherichia coli [E. coli] as the cause of diseases classified elsewhere; Z79.899 Other long term (current) drug therapy; W19.XXXA Unspecified fall, initial encounter
CPT/HCPCS: 36415; 71045; 72100; 73502; 80053; 83605; 84484; 85025; 86738; 87040 ×2; 87086; 87186; 87899 ×2; 93005; 94640; 96365; 96375; 99284; J0696; J2930; J7030; 71046; 71046-26; 80048; 83735; 84100; 86140; 87070; 87088; 87205; 87486; 87581; 87632; 87641; 87798; 93010; 94667; 94668; 94761; 97110-GP; 97116-GP; 97162-GP; 97165-GO; A9270-GY; J0456; J3475; J7050; J7120; J7620-GY

== ENCOUNTER 2020-06-15 00:43 | Inpatient (IN) | payer MEDICARE, OTHER ==
--- NOTE | 2020-06-15 01:18 | EDM.PDOC ---
ED HPI GENERAL MEDICAL PROBLEM - General Chief Complaint: General Stated Complaint: [facility] Time Seen by Provider: 06/15/20 00:54 Source of Information: Reports: Patient, Family (Grandson) History Limitations: Reports: No Limitations - History of Present Illness INITIAL COMMENTS - FREE TEXT/NARRATIVE: Mrs. Rajan is a very pleasant 84-year-old woman with a past medical history significant for left-sided lung cancer, previously treated with chemotherapy, currently on immunotherapy, who is now brought to the ED by EMS stating that she has fallen 4 times since this past 06/11/2020, including, most recently, tonight. She states that she falls because her legs simply give out from underneath her. She denies having dizziness, or loss of consciousness. She de nies unilateral weakness. She states that she has fallen prior to Wednesday, but not as frequently. The patient does not recall injuring herself when she fell, but reports that she started feeling some lower left rib pain earlier this week. The pain is mild if she remains still, but it is worse if she coughs. Here in the ED, the patient's initial BP is found to be slightly depressed at 155/55, with tachycardia of 109 bpm. She is slightly tachypneic at 28 rpm, afebrile, saturating 97% on 3 L of oxygen per nasal cannula. Prior to Wednesday, the patient denies having a recent fever, chills, sore throat, ear pain, nasal or sinus congestion, cough, dyspnea, chest pain, palpitations, nausea, vomiting, constipation, diarrhea, abdominal pain, urinary symptoms, recent weight gain or weight loss, recent bloody bowel movements or black bowel movements, recent joint aches, headaches, or rashes. The patient's PCP is Dr. Deonte Irwin. Her Oncologist is Dr. Hernandez, in [place], [place]. - Related Data Allergies Allergy/AdvReac Type Severity Reaction Status Date / Time shellfish derived Allergy Severe Airway Verified 09/01/18 17:33 Tightness ciprofloxacin AdvReac Syncope Verified 09/01/18 17:33 escitalopram oxalate AdvReac Syncope Verified 09/01/18 17:33 [From Lexapro] yogart Allergy Severe Swelling Uncoded 09/01/18 17:33 A&W root beer Allergy Hives Uncoded 09/01/18 17:33 oxalate Allergy Other Uncoded 09/01/18 17:33 Home Meds: Home Meds Albuterol/Ipratropium [Combivent Respimat] 1 puff INH QID 12/21/14 [History] Ascorbic Acid [Vitamin C] 1 tab PO DAILY 12/21/14 [History] Budesonide [Pulmicort] 1 ampule NEB BID 12/21/14 [History] Multivitamin [Multivitamins] 1 tab PO DAILY 12/21/14 [History] Sertraline [Zoloft] 25 mg PO DAILY 12/21/14 [History] Vitamin E (dl, acetate) [Vitamin E] 1 cap PO DAILY 12/21/14 [History] Ergocalciferol (Vitamin D2) [Vitamin D] 400 unit PO DAILY 08/19/16 [History] Ferrous Sulfate [Iron] 325 mg PO ASDIRECTED 08/19/16 [History] Cyanocobalamin (Vitamin B-12) [Vitamin B-12] 1 tab PO DAILY 03/25/18 [History] Latanoprost 1 drop EYELF BEDTIME 09/02/18 [History] cephALEXin [Keflex] 500 mg PO BID #5 capsule 09/06/18 [Rx] guaiFENesin [Mucinex] 600 mg PO BID #10 tab.er 09/06/18 [Rx] methylPREDNISolone [Medrol] 4 mg PO ASDIRECTED #1 dosepk 09/06/18 [Rx] Past Medical History HEENT History: Reports: Hard of Hearing Cardiovascular History: Reports: Heart Failure Respiratory History: Reports: COPD (on 2L O2 continuously), SOB Gastrointestinal History: Reports: Hemorrhoids Genitourinary History: Reports: Urinary Incontinence Musculoskeletal History: Reports: Osteoarthritis 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) Psychiatric History: Reports: Depression Hematologic History: Reports: Anemia 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 (left, s/p CTx, currently on no therapy), Other (See Below) (Epiglottal, s/p CTx, RTx, in remission) Dermatologic History: Reports: Eczema - Infectious Disease History Infectious Disease History: Reports: Chicken Pox, Influenza, Measles, Mumps, Scarlet Fever - Past Surgical History HEENT Surgical History: Reports: Cataract Surgery (bilateral), Oral Surgery (dental extractions), Tonsillectomy Other Cardiovascular Surgeries/Procedures: Prior cardiac arrest during labor and delivery GI Surgical History: Reports: Appendectomy Female Surgical History: Reports: D&C (x 3), Tubal Ligation Oncologic Surgical History: Reports: Other (See Below) (Left lung bx) Social & Family History - Tobacco Use Tobacco Use Status *Q: Former Tobacco User Years of Tobacco use: 40 Packs/Tins Daily: 0.5 Month/Year Tobacco Last Used: Quit 06/13/2007 - Caffeine Use Caffeine Use: Reports: None - Alcohol Use Alcohol Use History: No - Recreational Drug Use Recreational Drug Use: No - Living Situation & Occupation Living situation: Reports: , Assisted Living ([facility], in [place]) Occupation: Retired ED ROS GENERAL - Review of Systems Review Of Systems: Comprehensive ROS is negative, except as noted in HPI. ED EXAM, GENERAL - Physical Exam Exam: See Below Exam Limited By: No Limitations General Appearance: Alert, WD/WN, No Apparent Distress Eye Exam: Bilateral Eye: EOMI, Normal Inspection (s/p cataract surgery) Ears: Normal External Exam, Hearing Grossly Normal Nose: Normal Inspection Throat/Mouth: Normal Inspection, Normal Lips, Normal Voice, No Airway Compromise Head: Atraumatic, Normocephalic Neck: Normal Inspection, Full Range of Motion Respiratory/Chest: No Respiratory Distress, Lungs Clear, Normal Breath Sounds, No Accessory Muscle Use, Other (Tenderness to the lower lateral left ribs, without visible abnormality, such as swelling, erythema, ecchymosis, or abrasion) Cardiovascular: Normal Peripheral Pulses, Regular Rate, Rhythm, No Edema, No Gallop, No JVD, No Murmur, No Rub Peripheral Pulses: 3+: Radial (L), Radial (R) GI/Abdominal: Normal Bowel Sounds, Soft, Non-Tender, No Organomegaly, No Distention, No Abnormal Bruit, No Mass Back Exam: Normal Inspection, Full Range of Motion, NT Extremities: Normal Inspection, Normal Range of Motion, No Pedal Edema, Normal Capillary Refill Neurological: Alert, Oriented, CN II-XII Intact, Normal Cognition, Sensory/Motor Deficit (No sensory deficits, however, the patient is generally weak, with no focal neurologic weakness) Psychiatric: Normal Affect Skin Exam: Warm, Dry, Intact, Normal Color, No Rash #1 Interpretation EKG Date: 06/15/20 Time: :21 Rhythm: Other (Sinus tachycardia) Rate (Beats/Min): 102 Rolfe: Normal P-Wave: Present QRS: Normal ST-T: Normal QT: Normal Comparison: No Change (09/01/2018) Course - Vital Signs Last Recorded V/S: Last Vital Signs Temp 37.2 C 06/15/20 00:49 Pulse 109 H 06/15/20 00:49 Resp 28 H 06/15/20 00:49 BP 125/55 L 06/15/20 00:49 Pulse Ox 97 06/15/20 00:49 - Orders/Labs/Meds Orders: Active Orders 24 hr Category Date Time Status EKG Documentation Completion [RC] STAT Care 06/15/20 01:13 Active Chest 1V Frontal [CR] Stat Exams 06/15/20 01:12 Taken CULTURE BLOOD [BC] Stat Lab 06/15/20 03:10 Received CULTURE BLOOD [BC] Stat Lab 06/15/20 03:20 Received CULTURE URINE [RM] Stat Lab 06/15/20 03:02 Ordered Blood Culture x2 Reflex Set [OM.PC] Stat Oth 06/15/20 02:52 Ordered Labs: Laboratory Tests 06/15/20 06/15/20 06/15/20 Range/Units 01:30 01:30 03:10 WBC 14.02 H (3.98-10.04) K/mm3 RBC 2.54 L (3.98-5.22) M/mm3 Hgb 7.4 L (11.2-15.7) gm/dl Hct 24.9 L (34.1-44.9) % MCV 98.0 H (79.4-94.8) fl MCH 29.1 (25.6-32.2) pg MCHC 29.7 L (32.2-35.5) g/dl RDW Std Deviation 53.3 H (36.4-46.3) fL Plt Count 232 (182-369) K/mm3 MPV 8.5 L (9.4-12.3) fl Neutrophils % (Manual) 81 H (40-60) % Band Neutrophils % 5 (0-10) % Lymphocytes % (Manual) 9 L (20-40) % Atypical Lymphs % 0 % Monocytes % (Manual) 4 (2-10) % Eosinophils % (Manual) 0 L (0.7-5.8) % Basophils % (Manual) 1 (0.1-1.2) Platelet Estimate Adequate Plt Morphology Comment Normal Hypochromasia 1+ slight Anisocytosis 2+ moderate Macrocytosis 2+ moderate RBC Morph Comment Not Reportable Sodium 139 (136-145) mEq/L Potassium 4.2 (3.5-5.1) mEq/L Chloride 102 (98-107) mEq/L Carbon Dioxide 30 (21-32) mEq/L Anion Gap 11.2 (5-15) BUN 29 H (7-18) mg/dL Creatinine 1.0 (0.55-1.02) mg/dL Est Cr Clr Drug Dosing TNP Estimated GFR (MDRD) 53 (>60) mL/min BUN/Creatinine Ratio 29.0 H (14-18) Glucose 147 H (83-115) mg/dL Lactic Acid 0.5 (0.4-2.0) mmol/L Calcium 9.1 (8.5-10.1) mg/dL Magnesium 2.2 (1.8-2.4) mg/dl Total Bilirubin 0.4 (0.2-1.0) mg/dL AST 36 (15-37) U/L ALT 37 (14-59) U/L Alkaline Phosphatase 159 H (46-116) U/L Troponin I < 0.017 (0.00-0.056) ng/mL Total Protein 7.1 (6.4-8.2) g/dl Albumin 2.7 L (3.4-5.0) g/dl Globulin 4.4 gm/dL Albumin/Globulin Ratio 0.6 L (1-2) Urine Color (Yellow) Urine Appearance (Clear) Urine pH (5.0-8.0) Ur Specific [place] (1.005-1.030) Urine Protein (Negative) Urine Glucose (UA) (Negative) Urine Ketones (Negative) Urine Occult Blood (Negative) Urine Nitrite (Negative) Urine Bilirubin (Negative) Urine Urobilinogen (0.2-1.0) Ur Leukocyte Esterase (Negative) U Hyaline Cast (Auto) (0-5) /lpf Urine RBC (0-5) /hpf Urine WBC (0-5) /hpf Urine WBC Clumps (NOT SEEN) /hpf Ur Epithelial Cells (0-5) /hpf Urine Bacteria (FEW) /hpf Urine Mucus (FEW) /hpf 01/30/21 Range/Units 06:30 WBC (3.98-10.04) K/mm3 RBC (3.98-5.22) M/mm3 Hgb (11.2-15.7) gm/dl Hct (34.1-44.9) % MCV (79.4-94.8) fl MCH (25.6-32.2) pg MCHC (32.2-35.5) g/dl RDW Std Deviation (36.4-46.3) fL Plt Count (182-369) K/mm3 MPV (9.4-12.3) fl Neutrophils % (Manual) (40-60) % Band Neutrophils % (0-10) % Lymphocytes % (Manual) (20-40) % Atypical Lymphs % % Monocytes % (Manual) (2-10) % Eosinophils % (Manual) (0.7-5.8) % Basophils % (Manual) (0.1-1.2) Platelet Estimate Plt Morphology Comment Hypochromasia Anisocytosis Macrocytosis RBC Morph Comment Sodium (136-145) mEq/L Potassium (3.5-5.1) mEq/L Chloride (98-107) mEq/L Carbon Dioxide (21-32) mEq/L Anion Gap (5-15) BUN (7-18) mg/dL Creatinine (0.55-1.02) mg/dL Est Cr Clr Drug Dosing Estimated GFR (MDRD) (>60) mL/min BUN/Creatinine Ratio (14-18) Glucose (83-115) mg/dL Lactic Acid (0.4-2.0) mmol/L Calcium (8.5-10.1) mg/dL Magnesium (1.8-2.4) mg/dl Total Bilirubin (0.2-1.0) mg/dL AST (15-37) U/L ALT (14-59) U/L Alkaline Phosphatase (46-116) U/L Troponin I (0.00-0.056) ng/mL Total Protein (6.4-8.2) g/dl Albumin (3.4-5.0) g/dl Globulin gm/dL Albumin/Globulin Ratio (1-2) Urine Color Yellow (Yellow) Urine Appearance Cloudy H (Clear) Urine pH 6.0 (5.0-8.0) Ur Specific Kin[place] 1.025 (1.005-1.030) Urine Protein 2+ H (Negative) Urine Glucose (UA) Negative (Negative) Urine Ketones Negative (Negative) Urine Occult Blood Trace-lysed H (Negative) Urine Nitrite Positive H (Negative) Urine Bilirubin Negative (Negative) Urine Urobilinogen 0.2 (0.2-1.0) Ur Leukocyte Esterase 1+ H (Negative) U Hyaline Cast (Auto) 0-5 (0-5) /lpf Urine RBC 0-5 (0-5) /hpf Urine WBC 10-20 H (0-5) /hpf Urine WBC Clumps Rare (NOT SEEN) /hpf Ur Epithelial Cells Not seen (0-5) /hpf Urine Bacteria Many H (FEW) /hpf Urine Mucus Few (FEW) /hpf Meds: Medications Discontinued Medications Generic Name Dose Route Start Last Admin Trade Name Freq PRN Reason Stop Dose Admin Azithromycin 500 mg 06/15/20 02:55 06/15/20 03:34 Zithromax PO 06/15/20 02:56 500 mg ONETIME STA Administration Ceftriaxone Sodium 1 gm/ 100 mls @ 200 mls/hr 06/15/20 02:54 06/15/20 03:34 Sodium Chloride IV 06/15/20 03:23 200 mls/hr ONETIME STA Administration - Re-Assessments/Exams Free Text/Narrative Re-Assessment/Exam: 06/15/20 01:14 As above, the patient has fallen 4 times since Wednesday, including tonight, and at some point earlier this week she likely injured her lower left ribs. There is no associated dizziness or loss of consciousness, the patient denies tripping on anything. She states that she has been falling simply because her legs give out. On examination, while there is some tenderness to the left ribs, there are no visible abnormalities. Most importantly, there are no focal neurologic deficits, however, the patient is generally weak. I am surprised that she is able to stand at all, even with a walker, and it does not surprise me that she has been falling. I have ordered a work-up today to evaluate for such weakness, including several blood tests, a urinalysis, a portable chest x-ray, and an ECG. 06/15/20 02:47 Notified by Kezia NERI that she was only able to get a very tiny amount of urine from the patient by quick catheter. Lab informed her that there was enough to run a urine culture, therefore I have added a urine culture, however, there is not enough for urinalysis at this time. Kezia NERI will try again later to collect a urine sample for urinalysis. Portable chest radiograph reviewed. The cardiac silhouette is within normal limits. No pulmonary vascular congestion. There is a left lower lobe infiltrate with associated left-sided pleural effusion, most likely reflecting the patient's known left-sided lung cancer. No pneumothorax. Significant thoracolumbar scoliosis. Formal read per the Radiologist pending. The patient's CBC is remarkable for a WBC count elevated at 14.02, with 5% bandemia. Her H/H are depressed at 7.4/24.9, with the remainder of her CBC being unremarkable. Her CMP is remarkable for a BUN slightly elevated at 29, with a Cr normal at 1.0. She has modest hyperglycemia of 147, and her alkaline phosphatase is slightly elevated at 159, with the remainder of her CMP being unremarkable. Her magnesium level is within normal limits at 2.2. Her troponin is undetectably low. Reviewing prior labs, the patient's H/H were 8.4/29.3 on 06/11/2020. Based on the above, I have ordered a lactic acid level and 2 sets of blood cultures. I will also start the patient on empiric Rocephin and azithromycin, to treat a possible pneumonia. 06/15/20 03:03 Test results discussed with the patient and her grandson. The patient is agreeable to receiving the antibiotics. I also discussed the option of a PRBC transfusion, however, she would prefer to not have that. 06/15/20 05:07 The patient's lactic acid level has returned within normal limits at 0.5. 06/15/20 07:03 The patient's urinalysis is remarkable for trace occult blood with 0-5 RBCs, 1+ leukocyte esterase with 10-20 WBCs, nitrate positive with many bacteria, and no squamous epithelial cells seen. The patient's urinalysis is consistent with a UTI, however, she has already been treated with IV Rocephin and will be discharged with a prescription for Zofran, therefore nothing further should be necessary. As above, a urine culture was already sent. 06/15/20 07:06 Test results discussed with the patient. I was going to discharge her home witha prescription for azithromycin as previously planned, however, the patient stated that she would prefer to stay in the hospital for a couple of days, if possible. 06/15/20 07:[address] Collazo, who is in the ED to evaluate the patient. 06/15/20 07:28 Dr. Collazo will admit the patient as a full admission. Departure - Departure Time of Disposition: 07:28 Disposition: Admitted As Inpatient 68 Condition: Good Clinical Impression: Lung cancer, Generalized weakness Pneumonia Qualifiers: Pneumonia type: due to unspecified organism Laterality: left Lung location: lower lobe of lung Qualified Code(s): J18.1 - Lobar pneumonia, unspecified organism UTI (urinary tract infection) Qualifiers: Urinary tract infection type: acute cystitis Hematuria presence: without hematuria Qualified Code(s): N30.00 - Acute cystitis without hematuria Anemia Qualifiers: Anemia type: unspecified type Qualified Code(s): D64.9 - Anemia, unspecified - Discharge Information *PRESCRIPTION DRUG MONITORING PROGRAM REVIEWED*: Not Applicable *COPY OF PRESCRIPTION DRUG MONITORING REPORT IN PATIENT [facility]EN: Not Applicable Referrals: Deonte Candelario MD [Primary Care Provider] - Forms: ED Department Discharge Sepsis Event Note (ED) - Evaluation Sepsis Screening Result: No Definite Risk - Focused Exam Vital Signs: Vital Signs Temp Pulse Resp BP Pulse Ox 06/15/20 00:49 37.2 C 109 H 28 H 125/55 L 97 - My Orders Last 24 Hours: My Active Orders 06/15/20 01:12 Chest 1V Frontal [CR] Stat 06/15/20 01:13 EKG Documentation Completion [RC] STAT 06/15/20 02:52 Blood Culture x2 Reflex Set [OM.PC] Stat 06/15/20 03:02 CULTURE URINE [RM] Stat 06/15/20 03:10 CULTURE BLOOD [BC] Stat 06/15/20 03:20 CULTURE BLOOD [BC] Stat - Assessment/Plan Last 24 Hours: My Active Orders 06/15/20 01:12 Chest 1V Frontal [CR] Stat 06/15/20 01:13 EKG Documentation Completion [RC] STAT 06/15/20 02:52 Blood Culture x2 Reflex Set [OM.PC] Stat 06/15/20 03:02 CULTURE URINE [RM] Stat 06/15/20 03:10 CULTURE BLOOD [BC] Stat 06/15/20 03:20 CULTURE BLOOD [BC] Stat
[2020-06-15] MEDS ORDERED: cefTRIAXone 1 GM in Sodium Chloride 0.9% 100 ML IV STA (02:54)
[2020-06-15] MEDS ORDERED: Azithromycin 250 MG Tab PO STA (02:55)
[2020-06-15] MEDS ORDERED: Sodium Chloride 0.9% 10 ML Syringe FLUSH PRN (07:34)
[2020-06-15] MEDS ORDERED: Temazepam 7.5 MG Cap PO PRN (07:34)
[2020-06-15] MEDS ORDERED: Morphine 2 MG/ML SYRINGE IVPUSH PRN (07:34)
[2020-06-15] MEDS ORDERED: Acetaminophen 325 MG Tab PO PRN (07:34)
[2020-06-15] MEDS ORDERED: oxyCODONE 5 MG Tab PO PRN (07:34)
[2020-06-15] MEDS ORDERED: Docusate Sodium 100 MG Cap PO PRN (07:34)
--- NOTE | 2020-06-15 07:42 | PCM.HP.2 ---
H&P History of Present Illness - General Date of Service: 06/15/20 Admit Problem/Dx: Admission Diagnosis/Problem Admission Diagnosis/Problem Pneumonia, UTI, Frequent falls. Source of Information: Patient, Old Records History Limitations: Reports: No Limitations - History of Present Illness Initial Comments - Free Text/Narative: The patient is an 84-year-old lady who had presented to the emergency department reporting that she had fallen 4 times in the past 5 days. The patient has denied any trauma. She had no dizziness or lightheadedness. Patient says that she just had her legs give out on her. The patient today has no pain. 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 The patient's last chemotherapy session was June 13, 2020. The patient also has a significant history of COPD. The patient also has been noted to have anemia and she does not want blood transfusion. Overall, the patient feels weak today and she feels like she could benefit from hospitalization and antibiotic treatment for possible pneumonia and urinary tract infection. The patient uses oxygen at home at 2 L/min. Onset of Symptoms: Reports: Gradual Duration of Symptoms: Reports: Day(s): Location: Reports: Generalized Severity: Mild Improves with: Reports: None, Movement Worsens with: Reports: None Associated Symptoms: Reports: Cough - Related Data Allergies/Adverse Reactions: Allergies Allergy/AdvReac Type Severity Reaction Status Date / Time shellfish derived Allergy Severe Airway Verified 06/15/20 08:30 Tightness ciprofloxacin AdvReac Syncope Verified 06/15/20 08:30 escitalopram oxalate AdvReac Syncope Verified 06/15/20 08:30 [From Lexapro] yogart Allergy Severe Swelling Uncoded 09/01/18 17:33 A&W root beer Allergy Hives Uncoded 09/01/18 17:33 oxalate Allergy Other Uncoded 09/01/18 17:33 Home Medications: Home Meds Albuterol/Ipratropium [Combivent Respimat] 1 puff INH QID 12/21/14 [History] Ascorbic Acid [Vitamin C] 1 tab PO DAILY 12/21/14 [History] Budesonide [Pulmicort] 1 ampule NEB BID 12/21/14 [History] Multivitamin [Multivitamins] 1 tab PO DAILY 12/21/14 [History] Sertraline [Zoloft] 25 mg PO DAILY 12/21/14 [History] Vitamin E (dl, acetate) [Vitamin E] 1 cap PO DAILY 12/21/14 [History] Ergocalciferol (Vitamin D2) [Vitamin D] 400 unit PO DAILY 08/19/16 [History] Ferrous Sulfate [Iron] 325 mg PO DAILY 08/19/16 [History] Cyanocobalamin (Vitamin B-12) [Vitamin B-12] 1 tab PO ASDIRECTED 03/25/18 [History] Latanoprost 1 drop EYEBOTH BEDTIME 09/02/18 [History] Albuterol/Ipratropium [Combivent Respimat] 1 puff INH QID 06/15/20 [History] guaiFENesin [Mucinex] 600 mg PO BID PRN 06/15/20 [History] Past Medical History HEENT History: Reports: Hard of Hearing Cardiovascular History: Reports: Heart Failure Other Cardiovascular History: heart murmer since young Respiratory History: Reports: COPD (on 2L O2 continuously), SOB Other Respiratory History: lung cancer in left lung-currently not active-went through chemo tx in 2016 Gastrointestinal History: Reports: Hemorrhoids Genitourinary History: Reports: Urinary Incontinence [employer]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 OB/BYN History: Tubal Litigation Musculoskeletal History: Reports: Osteoarthritis Other Musculoskeletal History: hip pain related to arthritis 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) Psychiatric History: Reports: Depression Endocrine/Metabolic History: Reports: None Hematologic History: Reports: Anemia Other Hematologic History: takes an iron tablet Immunologic History: Reports: None 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 (left, s/p CTx, currently on no therapy), Other (See Below) (Epiglottal, s/p CTx, RTx, in remission) Other Oncologic History: epiglottis carcinoma Dermatologic History: Reports: Eczema - Infectious Disease History Infectious Disease History: Reports: Chicken Pox, Influenza, Measles, Mumps, Scarlet Fever Other Infectious Disease History: flu - Past Surgical History HEENT Surgical History: Reports: Cataract Surgery (bilateral), Oral Surgery (dental extractions), Tonsillectomy GI Surgical History: Reports: Appendectomy Female Surgical History: Reports: D&C (x 3), Tubal Ligation Oncologic Surgical History: Reports: Other (See Below) (Left lung bx) Social & Family History - Family History Family Medical History: No Pertinent Family History - Tobacco Use Tobacco Use Status *Q: Former Tobacco User Years of Tobacco use: 40 Packs/Tins Daily: 0.5 Month/Year Tobacco Last Used: Quit 06/13/2007 - Caffeine Use Caffeine Use: Reports: None - Recreational Drug Use Recreational Drug Use: No - Living Situation & Occupation Living situation: Reports: , Assisted Living ([facility], in [place]) Occupation: Retired H&P Review of Systems - Review of Systems: Review Of Systems: See Below General: Reports: Weakness HEENT: Reports: No Symptoms Pulmonary: Reports: Shortness of Breath, Cough. Denies: Sputum Cardiovascular: Reports: No Symptoms Gastrointestinal: Reports: No Symptoms Genitourinary: Reports: No Symptoms Musculoskeletal: Reports: No Symptoms Skin: Reports: No Symptoms Psychiatric: Reports: No Symptoms Neurological: Reports: No Symptoms Hematologic/Lymphatic: Reports: No Symptoms Immunologic: Reports: No Symptoms Exam - Exam Exam: See Below - Vital Signs Vital Signs: Last Vital Signs Temp 37.2 C 06/15/20 00:49 Pulse 109 H 06/15/20 00:49 Resp 28 H 06/15/20 00:49 BP 125/55 L 06/15/20 00:49 Pulse Ox 97 06/15/20 00:49 - Exam Quality Assessment: Supplemental Oxygen. No: DVT Prophylaxis General: Alert, Oriented, Cooperative, Mild Distress HEENT: Conjunctiva Clear, EACs Clear, EOMI, Pupils Equal, PERRLA. No: Mucosa Moist & [place] (Very dry) Neck: Supple, Trachea Midline Lungs: Decreased Breath Sounds, Crackles, Rales Cardiovascular: Regular Rate, Regular Rhythm GI/Abdominal Exam: Normal Bowel Sounds, Soft, Non-Tender, No Distention (Female) Exam: Deferred Rectal (Female) Exam: Deferred Back Exam: Normal Inspection (Appropriate for age, increased AP diameter) Extremities: Normal Inspection, No Pedal Edema Skin: Warm, Dry, Intact Neurological: Cranial Nerves Intact, Normal Speech Neuro Extensive - Mental Status: Alert, Oriented x3 Psychiatric: Alert, Normal Affect, Normal Mood - Patient Data Lab Results Last 24 hrs: Laboratory Results - last 24 hr 06/15/20 06/15/20 06/15/20 Range/Units :15 06: 03:10 WBC 14.02 H (3.98-10.04) K/mm3 RBC 2.54 L (3.98-5.22) M/mm3 Hgb 7.4 L (11.2-15.7) gm/dl Hct 24.9 L (34.1-44.9) % MCV 98.0 H (79.4-94.8) fl MCH 29.1 (25.6-32.2) pg MCHC 29.7 L (32.2-35.5) g/dl RDW Std Deviation 53.3 H (36.4-46.3) fL Plt Count 232 (182-369) K/mm3 MPV 8.5 L (9.4-12.3) fl Neutrophils % (Manual) 81 H (40-60) % Band Neutrophils % 5 (0-10) % Lymphocytes % (Manual) 9 L (20-40) % Atypical Lymphs % 0 % Monocytes % (Manual) 4 (2-10) % Eosinophils % (Manual) 0 L (0.7-5.8) % Basophils % (Manual) 1 (0.1-1.2) Platelet Estimate Adequate Plt Morphology Comment Normal Hypochromasia 1+ slight Anisocytosis 2+ moderate Macrocytosis 2+ moderate RBC Morph Comment Not Reportable Sodium 139 (136-145) mEq/L Potassium 4.2 (3.5-5.1) mEq/L Chloride 102 (98-107) mEq/L Carbon Dioxide 30 (21-32) mEq/L Anion Gap 11.2 (5-15) BUN 29 H (7-18) mg/dL Creatinine 1.0 (0.55-1.02) mg/dL Est Cr Clr Drug Dosing TNP Estimated GFR (MDRD) 53 (>60) mL/min BUN/Creatinine Ratio 29.0 H (14-18) Glucose 147 H (83-115) mg/dL Lactic Acid 0.5 (0.4-2.0) mmol/L Calcium 9.1 (8.5-10.1) mg/dL Magnesium 2.2 (1.8-2.4) mg/dl Total Bilirubin 0.4 (0.2-1.0) mg/dL AST 36 (15-37) U/L ALT 37 (14-59) U/L Alkaline Phosphatase 159 H (46-116) U/L Troponin I < 0.017 (0.00-0.056) ng/mL Total Protein 7.1 (6.4-8.2) g/dl Albumin 2.7 L (3.4-5.0) g/dl Globulin 4.4 gm/dL Albumin/Globulin Ratio 0.6 L (1-2) Urine Color (Yellow) Urine Appearance (Clear) Urine pH (5.0-8.0) Ur Specific [place] (1.005-1.030) Urine Protein (Negative) Urine Glucose (UA) (Negative) Urine Ketones (Negative) Urine Occult Blood (Negative) Urine Nitrite (Negative) Urine Bilirubin (Negative) Urine Urobilinogen (0.2-1.0) Ur Leukocyte Esterase (Negative) U Hyaline Cast (Auto) (0-5) /lpf Urine RBC (0-5) /hpf Urine WBC (0-5) /hpf Urine WBC Clumps (NOT SEEN) /hpf Ur Epithelial Cells (0-5) /hpf Urine Bacteria (FEW) /hpf Urine Mucus (FEW) /hpf 06/15/20 Range/Units 06:30 WBC (3.98-10.04) K/mm3 RBC (3.98-5.22) M/mm3 Hgb (11.2-15.7) gm/dl Hct (34.1-44.9) % MCV (79.4-94.8) fl MCH (25.6-32.2) pg MCHC (32.2-35.5) g/dl RDW Std Deviation (36.4-46.3) fL Plt Count (182-369) K/mm3 MPV (9.4-12.3) fl Neutrophils % (Manual) (40-60) % Band Neutrophils % (0-10) % Lymphocytes % (Manual) (20-40) % Atypical Lymphs % % Monocytes % (Manual) (2-10) % Eosinophils % (Manual) (0.7-5.8) % Basophils % (Manual) (0.1-1.2) Platelet Estimate Plt Morphology Comment Hypochromasia Anisocytosis Macrocytosis RBC Morph Comment Sodium (136-145) mEq/L Potassium (3.5-5.1) mEq/L Chloride (98-107) mEq/L Carbon Dioxide (21-32) mEq/L Anion Gap (5-15) BUN (7-18) mg/dL Creatinine (0.55-1.02) mg/dL Est Cr Clr Drug Dosing Estimated GFR (MDRD) (>60) mL/min BUN/Creatinine Ratio (14-18) Glucose (83-115) mg/dL Lactic Acid (0.4-2.0) mmol/L Calcium (8.5-10.1) mg/dL Magnesium (1.8-2.4) mg/dl Total Bilirubin (0.2-1.0) mg/dL AST (15-37) U/L ALT (14-59) U/L Alkaline Phosphatase (46-116) U/L Troponin I (0.00-0.056) ng/mL Total Protein (6.4-8.2) g/dl Albumin (3.4-5.0) g/dl Globulin gm/dL Albumin/Globulin Ratio (1-2) Urine Color Yellow (Yellow) Urine Appearance Cloudy H (Clear) Urine pH 6.0 (5.0-8.0) Ur Specific [place] 1.025 (1.005-1.030) Urine Protein 2+ H (Negative) Urine Glucose (UA) Negative (Negative) Urine Ketones Negative (Negative) Urine Occult Blood Trace-lysed H (Negative) Urine Nitrite Positive H (Negative) Urine Bilirubin Negative (Negative) Urine Urobilinogen 0.2 (0.2-1.0) Ur Leukocyte Esterase 1+ H (Negative) U Hyaline Cast (Auto) 0-5 (0-5) /lpf Urine RBC 0-5 (0-5) /hpf Urine WBC 10-20 H (0-5) /hpf Urine WBC Clumps Rare (NOT SEEN) /hpf Ur Epithelial Cells Not seen (0-5) /hpf Urine Bacteria Many H (FEW) /hpf Urine Mucus Few (FEW) /hpf Result Diagrams: 06/15/20 01:30 06/15/20 01:30 Sepsis Event Note - Evaluation Sepsis Screening Result: No Definite Risk - Focused Exam Vital Signs: Vital Signs Temp Pulse Resp BP Pulse Ox 06/15/20 00:49 37.2 C 109 H 28 H 125/55 L 97 *Q Meaningful Use (ADM) - VTE *Q VTE Mechanical Contraindications *Q: At Risk for Falls - Problem List (1) Pneumonia SNOMED Code(s): 795572573 ICD Code: J18.9 - PNEUMONIA, UNSPECIFIED ORGANISM Status: Acute Priority: High Current Visit: Yes Qualifiers: Pneumonia type: due to unspecified organism Laterality: left Lung location: lower lobe of lung (2) UTI (urinary tract infection) SNOMED Code(s): 06894811 ICD Code: N39.0 - URINARY TRACT INFECTION, SITE NOT SPECIFIED Status: Acute Priority: High Current Visit: Yes Qualifiers: Urinary tract infection type: acute cystitis Hematuria presence: without hematuria Qualified Code(s): N30.00 - Acute cystitis without hematuria (3) Generalized weakness SNOMED Code(s): 52420855 ICD Code: R53.1 - WEAKNESS Status: Chronic Priority: High Current Visit: Yes (4) Fall SNOMED Code(s): 7626301, 228656948 ICD Code: W19.XXXA - UNSPECIFIED FALL, INITIAL ENCOUNTER Status: Chronic Priority: High Current Visit: Yes Qualifiers: Encounter type: initial encounter Qualified Code(s): W19.XXXA - Unspecified fall, initial encounter (5) COPD (chronic obstructive pulmonary disease) SNOMED Code(s): 60078533 ICD Code: J44.9 - CHRONIC OBSTRUCTIVE PULMONARY DISEASE, UNSPECIFIED Status: Chronic Priority: Medium Current Visit: Yes Qualifiers: COPD type: unspecified COPD Qualified Code(s): J44.9 - Chronic obstructive pulmonary disease, unspecified (6) Carcinoma of lung SNOMED Code(s): 094471422 ICD Code: C34.90 - MALIGNANT NEOPLASM OF UNSP PART OF UNSP BRONCHUS OR LUNG Status: Chronic Priority: Medium Current Visit: Yes Qualifiers: Laterality: unspecified laterality Qualified Code(s): C34.90 - Malignant neoplasm of unspecified part of unspecified bronchus or lung (7) Anemia SNOMED Code(s): 862690167 ICD Code: D64.9 - ANEMIA, UNSPECIFIED Status: Chronic Priority: Medium Current Visit: Yes Qualifiers: Anemia type: unspecified type Qualified Code(s): D64.9 - Anemia, unspecified Problem List Initiated/Reviewed/Updated: Yes Orders Last 24hrs: Active Orders 24 hr Category Date Time Status Patient Status [ADT] Routine ADT 06/15/20 07:34 Ordered Cardiac Monitoring [RC] CONTINUOUS Care 06/15/20 07:36 Ordered EKG Documentation Completion [RC] STAT Care 06/15/20 01:13 Active Oxygen Therapy [RC] PRN Care 06/15/20 07:34 Ordered Peripheral IV Care [RC] . DIRECTED Care 06/15/20 07:37 Ordered RT Aerosol Therapy [RC] ASDIRECTED Care 06/15/20 07:39 Ordered Up With Assistance [RC] ASDIRECTED Care 06/15/20 07:34 Ordered VTE/DVT Education [RC] PER UNIT ROUTINE Care 06/15/20 07:34 Ordered Vital Signs [RC] Q4H Care 06/15/20 07:34 Ordered OT Evaluation and Treatment [CONS] Routine Cons 06/15/20 07:34 Ordered PT Evaluation and Treatment [CONS] Routine Cons 06/15/20 07:34 Ordered Respiratory Care Assess and Treatment [CONS] Routine Cons 06/15/20 07:34 Ordered Regular Diet [DIET] Diet 06/15/20 Lunch Ordered Chest 1V Frontal [CR] Stat Exams 06/15/20 01:12 Taken CBC WITH AUTO DIFF [HEME] AM Lab 06/16/20 05:11 Ordered COMPREHENSIVE METABOLIC PN,CMP [CHEM] AM Lab 06/16/20 05:11 Ordered CULTURE BLOOD [BC] Stat Lab 06/15/20 03:10 Received CULTURE BLOOD [BC] Stat Lab 06/15/20 03:20 Received CULTURE URINE [RM] Stat Lab 06/15/20 03:02 Ordered MAGNESIUM [CHEM] AM Lab 06/16/20 05:11 Ordered Acetaminophen [TylenoL] Med 06/15/20 07:34 Ordered 650 mg PO Q4H PRN Albuterol/Ipratropium [DuoNeb 3.0-0.5 MG/3 ML] Med 06/15/20 07:34 Ordered 3 ml NEB Q4H PRN Docusate Sodium [Colace] Med 06/15/20 07:34 Ordered 100 mg PO BID PRN Enoxaparin [Lovenox] Med 06/15/20 09:00 Ordered 30 mg SUBCUT DAILY Morphine Med 06/15/20 07:34 Ordered 2 mg IVPUSH Q2H PRN Sodium Chloride 0.9% [Normal Saline] 1,000 ml Med 06/15/20 07:45 Ordered IV ASDIRECTED Sodium Chloride 0.9% [Saline Flush] Med 06/15/20 07:34 Ordered 10 ml FLUSH ASDIRECTED PRN Temazepam [Restoril] Med 06/15/20 07:34 Ordered 7.5 mg PO BEDTIME PRN cefTRIAXone [Rocephin] 1 gm Med 06/16/20 09:00 Ordered Sodium Chloride 0.9% [Normal Saline] 100 ml IV Q24H oxyCODONE Med 06/15/20 07:34 Ordered 5 mg PO Q4H PRN Blood Culture x2 Reflex Set [OM.PC] Stat Oth 06/15/20 02:52 Ordered Peripheral IV Insertion Adult [OM.PC] Routine Oth 06/15/20 07:34 Ordered VTE Mechanical Contraindications [AST] Per Unit Routine Oth 06/15/20 07:34 Ordered Resuscitation Status Routine Resus Stat 06/15/20 07:34 Ordered Assessment/Plan Comment:: The patient is an 84-year-old lady who has been admitted as an inpatient. The patient has lung cancer left lower lobe and there may be a superimposed pneumonia which will be treated. She also has a urinary tract infection which will both be treated with Rocephin 1 g IV on a daily basis. These will be descalated as cultures indicate. The patient also has been anemic with 7.4 g/dL hemoglobin and the patient at this time does not want to have any blood transfusion. The patient should have blood transfusions if her hemoglobin drops below 7.0 g/dL. Repeat laboratory studies have been ordered for the morning. The patient will have regular diet as tolerated. Because of her COPD the patient will also have DuoNeb nebulizers as well as continuing on her home medications for COPD. The patient will also be slowly fluid resuscitated with the use of saline at 75 mL/h. The patient will also be anticoagulated with Lovenox 30 mg subcu on a daily basis for DVT prophylaxis. PT OT has also been ordered for the patient to help with her strengthening and evaluate her ADLs. The patient does not want to go to any kind of rehabilitation at this time. - Mortality Measure Prognosis:: Good
[2020-06-15] MEDS ORDERED: Budesonide 0.5 MG/2 ML Neb Susp ONE (08:37)
[2020-06-15] MEDS ORDERED: guaiFENesin 600 MG Tab.ER PO PRN (08:39)
[2020-06-15] MEDS: Albuterol/Ipratropium 3.0-0.5 MG/3 ML Neb Soln NEB PRN (08:59)
[2020-06-15] MEDS ORDERED: IPRATROPIUM INH SCH (09:00)
[2020-06-15] MEDS ORDERED: ALBUTEROL INH SCH (09:00)
[2020-06-15] MEDS: Albuterol/Ipratropium 3.0-0.5 MG/3 ML Neb Soln INH SCH ×4 (09:01→20:16)
[2020-06-15] MEDS: Budesonide 0.5 MG/2 ML Neb Susp NEB SCH ×2 (09:01→20:16)
[2020-06-15] MEDS: Enoxaparin 40 MG/0.4 ML Syringe SUBCUT SCH (09:21)
[2020-06-15] MEDS: Multivitamins,Therapeutic Tab PO SCH (09:21)
[2020-06-15] MEDS: Sertraline 25 MG Tab PO SCH (09:21)
[2020-06-15] MEDS: Sodium Chloride 0.9% 1,000 ML IV SCH ×2 (10:14→23:20)
--- NOTE | 2020-06-15 10:21 | CR ---
Chest: Portable view of the chest was obtained. Comparison: Prior chest x-ray of 07/20/19. Increasing density within the left mid and left base are noted. Right lung is clear. Heart size and mediastinum are normal. Scoliosis is noted within the spine. Impression: 1. Increased density within the left mid and lower lung. Findings raise the possibility of pneumonia. Please correlate with the patient's symptoms. 2. Scoliosis within the spine. Nothing acute is otherwise seen. Diagnostic code #3
[2020-06-15] MEDS: Latanoprost 0.005% Ophth Soln 2.5 ML Bottle EYEBOTH SCH (22:01)
[2020-06-16] MEDS: Budesonide 0.5 MG/2 ML Neb Susp NEB SCH ×2 (05:34→20:17)
[2020-06-16] MEDS: Albuterol/Ipratropium 3.0-0.5 MG/3 ML Neb Soln INH SCH ×4 (05:34→20:17)
[2020-06-16] MEDS: Levothyroxine 75 MCG Tab PO SCH (07:03)
[2020-06-16] MEDS: Levothyroxine 100 MCG Tab PO SCH (07:03)
[2020-06-16] MEDS: cefTRIAXone 1 GM in Sodium Chloride 0.9% 100 ML IV SCH (08:29)
[2020-06-16] MEDS: Sertraline 25 MG Tab PO SCH (08:32)
[2020-06-16] MEDS: Enoxaparin 40 MG/0.4 ML Syringe SUBCUT SCH (08:32)
[2020-06-16] MEDS: Multivitamins,Therapeutic Tab PO SCH (08:32)
[2020-06-16] MEDS: Ascorbic Acid 500 MG Tab PO SCH (08:32)
--- NOTE | 2020-06-16 09:03 | PCM.PN ---
- General Info Date of Service: 06/16/20 Admission Dx/Problem (Free Text): 84-year-old female that states she is feeling better. 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 Patient has not had a bowel movement since hospitalization. She states that is not unusual since she does not always move her bowels every day. Subjective Update: Mona states that she is feeling better. She is less weak and fatigued. She states that her appetite is better, but she is having difficulty swallowing pancakes this morning because she does not have any salivary glands. She has not had a bowel movement yet, but she states is not unusual since she does not move her bowels every day. Denies any fever or chills. She is normally on 2 L of O2 at home. Functional Status: Reports: Pain Controlled - Review of Systems General: Reports: No Symptoms HEENT: Reports: No Symptoms Pulmonary: Reports: No Symptoms Cardiovascular: Reports: No Symptoms Gastrointestinal: Reports: No Symptoms Musculoskeletal: Reports: No Symptoms Skin: Reports: No Symptoms Psychiatric: Reports: No Symptoms - Patient Data Vitals - Most Recent: Last Vital Signs Temp 97.9 F 06/16/20 07:30 Pulse 91 06/16/20 07:30 Resp 16 06/16/20 07:30 BP 96/26 L 06/16/20 07:30 Pulse Ox 91 L 06/16/20 07:30 Weight - Most Recent: 148 lb 8 oz I&O - Last 24 Hours: Intake & Output 06/15/20 06/16/20 06/16/20 22:59 06:59 14:59 Intake Total 1337 1648 Output Total 200 600 Balance 1137 1048 Lab Results Last 24 Hours: Laboratory Results - last 24 hr 06/15/20 06/15/20 06/16/20 Range/Units 08:30 10:30 04:50 WBC 9.11 (3.98-10.04) K/mm3 RBC 2.44 L (3.98-5.22) M/mm3 Hgb 7.1 L* (11.2-15.7) gm/dl Hct 24.0 L (34.1-44.9) % MCV 98.4 H (79.4-94.8) fl MCH 29.1 (25.6-32.2) pg MCHC 29.6 L (32.2-35.5) g/dl RDW Std Deviation 52.8 H (36.4-46.3) fL Plt Count 229 (182-369) K/mm3 MPV 9.5 (9.4-12.3) fl Neut % (Auto) 74.0 H (34.0-71.1) % Lymph % (Auto) 14.1 L (19.3-51.7) % [place] % (Auto) 6.9 (4.7-12.5) % Eos % (Auto) 4.6 (0.7-5.8) Baso % (Auto) 0.2 (0.1-1.2) % Neut # (Auto) 6.74 H (1.56-6.13) K/mm3 Lymph # (Auto) 1.28 (1.18-3.74) K/mm3 [place] # (Auto) 0.63 H (0.24-0.36) K/mm3 Eos # (Auto) 0.42 H (0.04-0.36) K/mm3 Baso # (Auto) 0.02 (0.01-0.08) K/mm3 Manual Slide Review Abnormal smear Sodium (136-145) mEq/L Potassium (3.5-5.1) mEq/L Chloride (98-107) mEq/L Carbon Dioxide (21-32) mEq/L Anion Gap (5-15) BUN (7-18) mg/dL Creatinine (0.55-1.02) mg/dL Est Cr Clr Drug Dosing mL/min Estimated GFR (MDRD) (>60) mL/min BUN/Creatinine Ratio (14-18) Glucose (83-115) mg/dL Calcium (8.5-10.1) mg/dL Magnesium (1.8-2.4) mg/dl Total Bilirubin (0.2-1.0) mg/dL AST (15-37) U/L ALT (14-59) U/L Alkaline Phosphatase (46-116) U/L Total Protein (6.4-8.2) g/dl Albumin (3.4-5.0) g/dl Globulin gm/dL Albumin/Globulin Ratio (1-2) SARS-CoV-2 RNA (CHRISTY) Negative (NEGATIVE) MRSA (PCR) Negative 06/16/20 Range/Units 04:50 WBC (3.98-10.04) K/mm3 RBC (3.98-5.22) M/mm3 Hgb (11.2-15.7) gm/dl Hct (34.1-44.9) % MCV (79.4-94.8) fl MCH (25.6-32.2) pg MCHC (32.2-35.5) g/dl RDW Std Deviation (36.4-46.3) fL Plt Count (182-369) K/mm3 MPV (9.4-12.3) fl Neut % (Auto) (34.0-71.1) % Lymph % (Auto) (19.3-51.7) % [place] % (Auto) (4.7-12.5) % Eos % (Auto) (0.7-5.8) Baso % (Auto) (0.1-1.2) % Neut # (Auto) (1.56-6.13) K/mm3 Lymph # (Auto) (1.18-3.74) K/mm3 [place] # (Auto) (0.24-0.36) K/mm3 Eos # (Auto) (0.04-0.36) K/mm3 Baso # (Auto) (0.01-0.08) K/mm3 Manual Slide Review Sodium 135 L (136-145) mEq/L Potassium 4.1 (3.5-5.1) mEq/L Chloride 100 (98-107) mEq/L Carbon Dioxide 27 (21-32) mEq/L Anion Gap 12.1 (5-15) BUN 24 H (7-18) mg/dL Creatinine 0.9 (0.55-1.02) mg/dL Est Cr Clr Drug Dosing 34.62 mL/min Estimated GFR (MDRD) 60 (>60) mL/min BUN/Creatinine Ratio 26.7 H (14-18) Glucose 100 (83-115) mg/dL Calcium 8.3 L (8.5-10.1) mg/dL Magnesium 2.0 (1.8-2.4) mg/dl Total Bilirubin 0.2 (0.2-1.0) mg/dL AST 24 (15-37) U/L ALT 25 (14-59) U/L Alkaline Phosphatase 133 H (46-116) U/L Total Protein 6.4 (6.4-8.2) g/dl Albumin 2.2 L (3.4-5.0) g/dl Globulin 4.2 gm/dL Albumin/Globulin Ratio 0.5 L (1-2) SARS-CoV-2 RNA (CHRISTY) (NEGATIVE) MRSA (PCR) Mike Results Last 24 Hours: Microbiology 06/15/20 03:20 Aerobic Blood Culture - Preliminary Blood - Venous - Lab Draw NO GROWTH AFTER 1 DAY Anaerobic Blood Culture - Preliminary NO GROWTH AFTER 1 DAY 06/15/20 03:10 Aerobic Blood Culture - Preliminary Blood - Venous NO GROWTH AFTER 1 DAY Anaerobic Blood Culture - Preliminary NO GROWTH AFTER 1 DAY 06/15/20 02:45 Urine Culture - Preliminary Urine, Quick Cath (In-Out) Gram Negative Rods Med Orders - Current: Current Medications Acetaminophen (Tylenol) 650 mg PO Q4H PRN PRN Reason: Pain (Mild 1-3)/fever Albuterol/Ipratropium (Duoneb 3.0-0.5 Mg/3 Ml) 3 ml NEB Q4H PRN PRN Reason: Shortness Of Breath/wheezing Albuterol/Ipratropium (Duoneb 3.0-0.5 Mg/3 Ml) 3 ml INH QIDRT [facility] Last Admin: 06/16/20 05:34 Dose: 3 ml Documented by: Ascorbic Acid (Vitamin C) 500 mg PO DAILY [facility] Last Admin: 06/16/20 08:32 Dose: 500 mg Documented by: Budesonide (Pulmicort) 0.5 mg NEB BIDRT [facility] Last Admin: 06/16/20 05:34 Dose: 0.5 mg Documented by: Docusate Sodium (Colace) 100 mg PO BID PRN PRN Reason: Constipation Enoxaparin Sodium (Lovenox) 40 mg SUBCUT DAILY [facility] Last Admin: 06/16/20 08:32 Dose: 40 mg Documented by: Guaifenesin (Mucinex) 600 mg PO BID PRN PRN Reason: Congestion Sodium Chloride (Normal Saline) 1,000 mls @ 75 mls/hr IV ASDIRECTED [facility] Last Admin: 06/15/20 23:20 Dose: 75 mls/hr Documented by: Ceftriaxone Sodium 1 gm/ (Sodium Chloride) 100 mls @ 200 mls/hr IV Q24H [facility] Last Admin: 06/16/20 08:29 Dose: 200 mls/hr Documented by: Latanoprost (Xalatan 0.005% Ophth Soln) 0 ml EYEBOTH BEDTIME [facility] Last Admin: 06/15/20 22:01 Dose: 1 drop Documented by: Levothyroxine Sodium (Synthroid) 100 mcg PO ACBREAKFAST [facility] Last Admin: 06/16/20 07:03 Dose: 100 mcg Documented by: Levothyroxine Sodium (Levothyroxine) 75 mcg PO ACBREAKFAST [facility] Last Admin: 06/16/20 07:03 Dose: 75 mcg Documented by: Multivitamins (Thera) 1 each PO DAILY [facility] Last Admin: 06/16/20 08:32 Dose: 1 each Documented by: Oxycodone HCl (Oxycodone) 5 mg PO Q4H PRN PRN Reason: Pain (moderate 4-6) Sertraline HCl (Zoloft) 25 mg PO DAILY [facility] Last Admin: 06/16/20 08:32 Dose: 25 mg Documented by: Sodium Chloride (Saline Flush) 10 ml FLUSH ASDIRECTED PRN PRN Reason: Keep Vein Open Temazepam (Restoril) 7.5 mg PO BEDTIME PRN PRN Reason: Sleep Discontinued Medications Azithromycin (Zithromax) 500 mg PO ONETIME STA Stop: 06/15/20 02:56 Last Admin: 06/15/20 03:34 Dose: 500 mg Documented by: Budesonide (Pulmicort) Confirm Administered Dose 0.5 mg .ROUTE .STK-MED ONE Stop: 06/15/20 08:38 Last Admin: 06/15/20 08:59 Dose: Not Given Documented by: Ceftriaxone Sodium 1 gm/ (Sodium Chloride) 100 mls @ 200 mls/hr IV ONETIME STA Stop: 06/15/20 03:23 Last Admin: 06/15/20 03:34 Dose: 200 mls/hr Documented by: Morphine Sulfate (Morphine) 2 mg IVPUSH Q2H PRN PRN Reason: Pain (severe 7-10) Stop: 06/16/20 07:38 Non-Formulary Medication (Albuterol/Ipratropium) 1 puff INH QID FIDE - Exam Quality Assessment: Supplemental Oxygen General: Alert, Oriented HEENT: Pupils Equal, Mucous Membr. Moist/[place] Neck: Supple Lungs: Normal Respiratory Effort, Wheezing (Right lower lobe worse than left. Minimal throughout.) Cardiovascular: Regular Rate, Regular Rhythm GI/Abdominal Exam: Soft, Non-Tender, No Organomegaly, No Distention Extremities: Normal Inspection, Normal Range of Motion, No Pedal Edema, Normal Capillary Refill Skin: Warm, Dry, Intact Psy/Mental Status: Alert, Normal Affect, Normal Mood Sepsis Event Note - Evaluation Sepsis Screening Result: No Definite Risk - Focused Exam Vital Signs: Vital Signs Temp Pulse Resp BP Pulse Ox Pulse Ox 06/16/20 07:30 97.9 F 91 16 96/26 L 91 L 06/16/20 05:37 92 L 06/16/20 03:15 93 L 06/16/20 03:08 98.4 F 92 16 114/67 90 L 06/15/20 23:04 107/51 L 06/15/20 23:02 97.2 F 89 16 97/42 L 93 L - Problem List & Annotations (1) Generalized weakness SNOMED Code(s): 38975252 Code(s): R53.1 - WEAKNESS Status: Acute Current Visit: Yes (2) Lung cancer SNOMED Code(s): 885625909 Code(s): C34.90 - MALIGNANT NEOPLASM OF UNSP PART OF UNSP BRONCHUS OR LUNG Status: Acute Current Visit: Yes (3) Pneumonia SNOMED Code(s): 282577580 Code(s): J18.9 - PNEUMONIA, UNSPECIFIED ORGANISM Status: Acute Priority: High Current Visit: Yes Qualifiers: Pneumonia type: due to unspecified organism Laterality: left Lung location: lower lobe of lung Qualified Code(s): J18.9 - Pneumonia, unspecified organism (4) UTI (urinary tract infection) SNOMED Code(s): 71188521 Code(s): N39.0 - URINARY TRACT INFECTION, SITE NOT SPECIFIED Status: Acute Priority: High Current Visit: Yes Qualifiers: Urinary tract infection type: acute cystitis Hematuria presence: without hematuria Qualified Code(s): N30.00 - Acute cystitis without hematuria (5) Anemia SNOMED Code(s): 829155170 Code(s): D64.9 - ANEMIA, UNSPECIFIED Status: Chronic Priority: Medium Current Visit: Yes Qualifiers: Anemia type: unspecified type Qualified Code(s): D64.9 - Anemia, unspecified (6) COPD (chronic obstructive pulmonary disease) SNOMED Code(s): 46118830 Code(s): J44.9 - CHRONIC OBSTRUCTIVE PULMONARY DISEASE, UNSPECIFIED Status: Chronic Priority: Medium Current Visit: Yes Qualifiers: COPD type: unspecified COPD Qualified Code(s): J44.9 - Chronic obstructive pulmonary disease, unspecified (7) Fall SNOMED Code(s): 4351132, 746923377 Code(s): W19.XXXA - UNSPECIFIED FALL, INITIAL ENCOUNTER Status: Chronic Priority: High Current Visit: Yes Qualifiers: Encounter type: initial encounter Qualified Code(s): W19.XXXA - Unspecified fall, initial encounter - Problem List Review Problem List Initiated/Reviewed/Updated: Yes - Plan Plan:: 06/15/2020ay of admission The patient is an 84-year-old lady who has been admitted as an inpatient. The patient has lung cancer left lower lobe and there may be a superimposed pneumonia which will be treated. She also has a urinary tract infection which will both be treated with Rocephin 1 g IV on a daily basis. These will be descalated as cultures indicate. The patient also has been anemic with 7.4 g/dL hemoglobin and the patient at this time does not want to have any blood transfusion. The patient should have blood transfusions if her hemoglobin drops below 7.0 g/dL. Repeat laboratory studies have been ordered for the morning. The patient will have regular diet as tolerated. Because of her COPD the patient will also have DuoNeb nebulizers as well as continuing on her home medications for COPD. The patient will also be slowly fluid resuscitated with the use of saline at 75 mL/h. The patient will also be anticoagulated with Lovenox 30 mg subcu on a daily basis for DVT prophylaxis. PT OT has also been ordered for the patient to help with her strengthening and evaluate her ADLs. The patient does not want to go to any kind of rehabilitation at this time. 06/16/2020 82-year-old female with lung cancer admitted secondary to weakness and falls from presumed pneumonia and urinary tract infection. She states that she is feeling better with less weakness and fatigue. Pneumonia COPD Lung cancer * Chest x-ray shows increased density within the left mid and lower lung. Findings raise the possibility of pneumonia. * Initial WBC 14.0 today's 9.11 * Currently on Rocephin 1 g every 24 hours * Home O2 of 2 L. Patient continues on 2 L in the hospital. UTI, asymptomatic * Urine culture growing out gram negative rods * Patient on Rocephin * No history of symptoms Anemia * Admission hemoglobin 7.4, today's 7.1 * Significant drop in hemoglobin from 06/11/2020 when it was 8.9 * Likely multifactorial, no source of bleeding. * No recent iron studies. Plan * DC IV fluids * Continue Rocephin 1 g daily * Await urine cultures * Follow CBC * Continue home 2 L O2 * Hemoglobin continues to decrease, possible secondary to hemodilution * Check iron levels, vitamin B12, and folic acid * PT consult * VTE prophylaxis with Lovenox * CODE STATUS: Full code
[2020-06-16] MEDS: Latanoprost 0.005% Ophth Soln 2.5 ML Bottle EYEBOTH SCH (21:34)
[2020-06-17] MEDS: Albuterol/Ipratropium 3.0-0.5 MG/3 ML Neb Soln INH SCH ×4 (06:35→20:04)
[2020-06-17] MEDS: Budesonide 0.5 MG/2 ML Neb Susp NEB SCH ×2 (06:35→20:05)
[2020-06-17] MEDS: Levothyroxine 100 MCG Tab PO SCH (06:53)
[2020-06-17] MEDS: Levothyroxine 75 MCG Tab PO SCH (06:53)
[2020-06-17] MEDS: Enoxaparin 40 MG/0.4 ML Syringe SUBCUT SCH (08:52)
[2020-06-17] MEDS: Ascorbic Acid 500 MG Tab PO SCH (08:54)
[2020-06-17] MEDS: Multivitamins,Therapeutic Tab PO SCH (08:54)
[2020-06-17] MEDS: Sertraline 25 MG Tab PO SCH (08:54)
[2020-06-17] MEDS: cefTRIAXone 1 GM in Sodium Chloride 0.9% 100 ML IV SCH (08:55)
--- NOTE | 2020-06-17 09:26 | PCM.PN ---
- General Info Date of Service: 06/17/20 Subjective Update: Patient continues to improve. Unfortunately her hemoglobin dropped to 6.5 today. We discussed benefits of transfusion as well as risks. Her appetite is good and she has a bowel movement yesterday. Shortness of breath is greatly improved. Functional Status: Reports: Pain Controlled - Review of Systems General: Reports: No Symptoms HEENT: Reports: No Symptoms Pulmonary: Reports: No Symptoms Cardiovascular: Reports: No Symptoms Musculoskeletal: Reports: No Symptoms Psychiatric: Reports: No Symptoms - Patient Data Vitals - Most Recent: Last Vital Signs Temp 98.4 F 06/17/20 07:26 Pulse 98 06/17/20 07:26 Resp 18 06/17/20 07:26 BP 117/55 L 06/17/20 07:26 Pulse Ox 91 L 06/17/20 08:29 Weight - Most Recent: 151 lb I&O - Last 24 Hours: Intake & Output 06/16/20 06/17/20 06/17/20 22:59 06:59 14:59 Intake Total 1312 800 Output Total 1000 Balance 1312 -200 Lab Results Last 24 Hours: Laboratory Results - last 24 hr 06/17/20 06/17/20 Range/Units 06:35 06:35 WBC 7.06 (3.98-10.04) K/mm3 RBC 2.25 L (3.98-5.22) M/mm3 Hgb 6.5 L* (11.2-15.7) gm/dl Hct 22.0 L (34.1-44.9) % MCV 97.8 H (79.4-94.8) fl MCH 28.9 (25.6-32.2) pg MCHC 29.5 L (32.2-35.5) g/dl RDW Std Deviation 51.1 H (36.4-46.3) fL Plt Count 241 (182-369) K/mm3 MPV 8.8 L (9.4-12.3) fl Neut % (Auto) 72.4 H (34.0-71.1) % Lymph % (Auto) 15.4 L (19.3-51.7) % [place] % (Auto) 8.4 (4.7-12.5) % Eos % (Auto) 3.4 (0.7-5.8) Baso % (Auto) 0.1 (0.1-1.2) % Neut # (Auto) 5.11 (1.56-6.13) K/mm3 Lymph # (Auto) 1.09 L (1.18-3.74) K/mm3 [place] # (Auto) 0.59 H (0.24-0.36) K/mm3 Eos # (Auto) 0.24 (0.04-0.36) K/mm3 Baso # (Auto) 0.01 (0.01-0.08) K/mm3 Manual Slide Review Abnormal smear Iron 20 L (50-170) ug/dL TIBC 138 (100-400) ug/dL % Saturation 14 L (20-55) % Transferrin 110 L (202-364) mg/dL Mike Results Last 24 Hours: Microbiology 06/15/20 02:45 Urine Culture - Final Urine, Quick Cath (In-Out) Escherichia Coli 06/15/20 03:20 Aerobic Blood Culture - Preliminary Blood - Venous - Lab Draw NO GROWTH AFTER 2 DAYS Anaerobic Blood Culture - Preliminary NO GROWTH AFTER 2 DAYS 06/15/20 03:10 Aerobic Blood Culture - Preliminary Blood - Venous NO GROWTH AFTER 2 DAYS Anaerobic Blood Culture - Preliminary NO GROWTH AFTER 2 DAYS Med Orders - Current: Current Medications Acetaminophen (Tylenol) 650 mg PO Q4H PRN PRN Reason: Pain (Mild 1-3)/fever Albuterol/Ipratropium (Duoneb 3.0-0.5 Mg/3 Ml) 3 ml NEB Q4H PRN PRN Reason: Shortness Of Breath/wheezing Albuterol/Ipratropium (Duoneb 3.0-0.5 Mg/3 Ml) 3 ml INH QIDRT [facility] Last Admin: 06/17/20 06:35 Dose: 3 ml Documented by: Ascorbic Acid (Vitamin C) 500 mg PO DAILY [facility] Last Admin: 06/17/20 08:54 Dose: 500 mg Documented by: Budesonide (Pulmicort) 0.5 mg NEB BIDRT [facility] Last Admin: 06/17/20 06:35 Dose: 0.5 mg Documented by: Docusate Sodium (Colace) 100 mg PO BID PRN PRN Reason: Constipation Enoxaparin Sodium (Lovenox) 40 mg SUBCUT DAILY [facility] Last Admin: 06/17/20 08:52 Dose: 40 mg Documented by: Guaifenesin (Mucinex) 600 mg PO BID PRN PRN Reason: Congestion Ceftriaxone Sodium 1 gm/ (Sodium Chloride) 100 mls @ 200 mls/hr IV Q24H [facility] Last Admin: 06/17/20 08:55 Dose: 200 mls/hr Documented by: Sodium Chloride (Normal Saline) 250 mls @ 25 mls/hr IV ASDIRECTED [facility] Latanoprost (Xalatan 0.005% Ophth Soln) 0 ml EYEBOTH BEDTIME [facility] Last Admin: 06/16/20 21:34 Dose: 1 drop Documented by: Levothyroxine Sodium (Synthroid) 100 mcg PO ACBREAKFAST [facility] Last Admin: 06/17/20 06:53 Dose: 100 mcg Documented by: Levothyroxine Sodium (Levothyroxine) 75 mcg PO ACBREAKFAST [facility] Last Admin: 06/17/20 06:53 Dose: 75 mcg Documented by: Multivitamins (Thera) 1 each PO DAILY [facility] Last Admin: 06/17/20 08:54 Dose: 1 each Documented by: Oxycodone HCl (Oxycodone) 5 mg PO Q4H PRN PRN Reason: Pain (moderate 4-6) Sertraline HCl (Zoloft) 25 mg PO DAILY [facility] Last Admin: 06/17/20 08:54 Dose: 25 mg Documented by: Sodium Chloride (Saline Flush) 10 ml FLUSH ASDIRECTED PRN PRN Reason: Keep Vein Open Temazepam (Restoril) 7.5 mg PO BEDTIME PRN PRN Reason: Sleep Discontinued Medications Azithromycin (Zithromax) 500 mg PO ONETIME STA Stop: 06/15/20 02:56 Last Admin: 06/15/20 03:34 Dose: 500 mg Documented by: Budesonide (Pulmicort) Confirm Administered Dose 0.5 mg .ROUTE .STK-MED ONE Stop: 06/15/20 08:38 Last Admin: 06/15/20 08:59 Dose: Not Given Documented by: Ceftriaxone Sodium 1 gm/ (Sodium Chloride) 100 mls @ 200 mls/hr IV ONETIME STA Stop: 06/15/20 03:23 Last Admin: 06/15/20 03:34 Dose: 200 mls/hr Documented by: Sodium Chloride (Normal Saline) 1,000 mls @ 75 mls/hr IV ASDIRECTED [facility] Last Admin: 06/15/20 23:20 Dose: 75 mls/hr Documented by: Morphine Sulfate (Morphine) 2 mg IVPUSH Q2H PRN PRN Reason: Pain (severe 7-10) Stop: 06/16/20 07:38 Non-Formulary Medication (Albuterol/Ipratropium) 1 puff INH QID [facility] - Exam Quality Assessment: Supplemental Oxygen General: Alert, Oriented HEENT: Pupils Equal, Mucous Membr. Moist/[place] Neck: Supple Lungs: Normal Respiratory Effort, Wheezing Cardiovascular: Regular Rate, Regular Rhythm GI/Abdominal Exam: Normal Bowel Sounds, Soft, Non-Tender, No Distention Extremities: Normal Inspection, Normal Range of Motion, Non-Tender, No Pedal Edema, Normal Capillary Refill Skin: Warm, Dry, Intact Psy/Mental Status: Alert, Normal Affect, Normal Mood Sepsis Event Note - Evaluation Sepsis Screening Result: No Definite Risk - Focused Exam Vital Signs: Vital Signs Temp Pulse Resp BP Pulse Ox Pulse Ox 06/17/20 08:29 91 L 06/17/20 07:26 98.4 F 98 18 117/55 L 92 L 06/17/20 06:44 95 06/17/20 06:36 94 L 06/17/20 03:17 98.4 F 97 16 117/48 L 94 L 06/16/20 23:38 98.8 F 93 16 128/54 L 94 L - Problem List & Annotations (1) Generalized weakness SNOMED Code(s): 87817410 Code(s): R53.1 - WEAKNESS Status: Acute Current Visit: Yes (2) Lung cancer SNOMED Code(s): 128295329 Code(s): C34.90 - MALIGNANT NEOPLASM OF UNSP PART OF UNSP BRONCHUS OR LUNG Status: Acute Current Visit: Yes (3) Pneumonia SNOMED Code(s): 505206909 Code(s): J18.9 - PNEUMONIA, UNSPECIFIED ORGANISM Status: Acute Priority: High Current Visit: Yes Qualifiers: Pneumonia type: due to unspecified organism Laterality: left Lung location: lower lobe of lung Qualified Code(s): J18.9 - Pneumonia, unspecified organism (4) UTI (urinary tract infection) SNOMED Code(s): 05879521 Code(s): N39.0 - URINARY TRACT INFECTION, SITE NOT SPECIFIED Status: Acute Priority: High Current Visit: Yes Qualifiers: Urinary tract infection type: acute cystitis Hematuria presence: without hematuria Qualified Code(s): N30.00 - Acute cystitis without hematuria (5) Anemia SNOMED Code(s): 984391084 Code(s): D64.9 - ANEMIA, UNSPECIFIED Status: Chronic Priority: Medium Current Visit: Yes Qualifiers: Anemia type: unspecified type Qualified Code(s): D64.9 - Anemia, unspecified (6) COPD (chronic obstructive pulmonary disease) SNOMED Code(s): 60316342 Code(s): J44.9 - CHRONIC OBSTRUCTIVE PULMONARY DISEASE, UNSPECIFIED Status: Chronic Priority: Medium Current Visit: Yes Qualifiers: COPD type: unspecified COPD Qualified Code(s): J44.9 - Chronic obstructive pulmonary disease, unspecified (7) Fall SNOMED Code(s): 0497160, 450412253 Code(s): W19.XXXA - UNSPECIFIED FALL, INITIAL ENCOUNTER Status: Chronic Priority: High Current Visit: Yes Qualifiers: Encounter type: initial encounter Qualified Code(s): W19.XXXA - Unspecified fall, initial encounter - Problem List Review Problem List Initiated/Reviewed/Updated: Yes - My Orders Last 24 Hours: My Active Orders 06/16/20 09:32 RT Chest Physiotherapy [RC] ASDIRECTED RT Incentive Spirometry [RC] ASDIRECTED 06/17/20 09:21 RED BLOOD CELLS LP [BBK] Routine TYPE AND SCREEN [BBK] Routine Transfuse Red Blood Cells [COMM] Routine Transfuse Red Blood Cells [COMM] Routine 06/17/20 09:30 Sodium Chloride 0.9% [Normal Saline] 250 ml IV ASDIRECTED - Plan Plan:: 06/15/2020ay of admission The patient is an 84-year-old lady who has been admitted as an inpatient. The patient has lung cancer left lower lobe and there may be a superimposed pneumonia which will be treated. She also has a urinary tract infection which will both be treated with Rocephin 1 g IV on a daily basis. These will be de scalated as cultures indicate. The patient also has been anemic with 7.4 g/dL hemoglobin and the patient at this time does not want to have any blood transfusion. The patient should have blood transfusions if her hemoglobin drops below 7.0 g/dL. Repeat laboratory studies have been ordered for the morning. The patient will have regular diet as tolerated. Because of her COPD the patient will also have DuoNeb nebulizers as well as continuing on her home medications for COPD. The patient will also be slowly fluid resuscitated with the use of saline at 75 mL/h. The patient will also be anticoagulated with Lovenox 30 mg subcu on a daily basis for DVT prophylaxis. PT OT has also been ordered for the patient to help with her strengthening and evaluate her ADLs. The patient does not want to go to any kind of rehabilitation at this time. 06/16/2020 82-year-old female with lung cancer admitted secondary to weakness and falls from presumed pneumonia and urinary tract infection. She states that she is feeling better with less weakness and fatigue. Pneumonia COPD Lung cancer * Chest x-ray shows increased density within the left mid and lower lung. Findings raise the possibility of pneumonia. * Initial WBC 14.0 today's 9.11 * Currently on Rocephin 1 g every 24 hours * Home O2 of 2 L. Patient continues on 2 L in the hospital. UTI, asymptomatic * Urine culture growing out gram negative rods * Patient on Rocephin * No history of symptoms Anemia * Admission hemoglobin 7.4, today's 7.1 * Significant drop in hemoglobin from 06/11/2020 when it was 8.9 * Likely multifactorial, no source of bleeding. * No recent iron studies. Plan * DC IV fluids * Continue Rocephin 1 g daily * Await urine cultures * Follow CBC * Continue home 2 L O2 * Hemoglobin continues to decrease, possible secondary to hemodilution * Check iron levels, vitamin B12, and folic acid * PT consult * VTE prophylaxis with Lovenox * CODE STATUS: Full code 06/17/2020 82-year-old female with lung cancer admitted secondary to weakness and falls found to have pneumonia and a UTI. Patient is significantly improved, but her hemoglobin continues to drop. White count today is down to 7, but her hemoglobin is down to 6.5. After a long discussion with her and her son she agreed to 2 units of packed red blood cells. Risks and benefits were discussed in detail and questions were answered. Patient also will need iron for her iron deficiency anemia. She states she does get occasional nosebleeds and her last colonoscopy was over 5 years ago. She is getting treated with [facility]olog[facility] for her lung cancer and last dose was last week. Patient will continue on Rocephin today and switch over to oral antibiotics tomorrow. Her urine did grow out E. coli sensitive to cephalosporins. Possible discharge tomorrow after iron infusion.
[2020-06-17] MEDS ORDERED: Sodium Chloride 0.9% 250 ML IV SCH (09:30)
[2020-06-17] MEDS: Latanoprost 0.005% Ophth Soln 2.5 ML Bottle EYEBOTH SCH (21:56)
[2020-06-18] MEDS: Albuterol/Ipratropium 3.0-0.5 MG/3 ML Neb Soln NEB PRN (03:59)
[2020-06-18] MEDS: Albuterol/Ipratropium 3.0-0.5 MG/3 ML Neb Soln INH SCH ×3 (06:06→15:35)
[2020-06-18] MEDS: Budesonide 0.5 MG/2 ML Neb Susp NEB SCH (06:07)
[2020-06-18] MEDS: Levothyroxine 100 MCG Tab PO SCH (07:03)
[2020-06-18] MEDS: Levothyroxine 75 MCG Tab PO SCH (07:03)
[2020-06-18] MEDS: cefTRIAXone 1 GM in Sodium Chloride 0.9% 100 ML IV SCH (09:22)
[2020-06-18] MEDS: Enoxaparin 40 MG/0.4 ML Syringe SUBCUT SCH (09:30)
[2020-06-18] MEDS: Sertraline 25 MG Tab PO SCH (09:30)
[2020-06-18] MEDS: Multivitamins,Therapeutic Tab PO SCH (09:30)
[2020-06-18] MEDS: Ascorbic Acid 500 MG Tab PO SCH (09:30)
--- NOTE | 2020-06-18 10:22 | PCM.DCSUM1 ---
Discharge Summary - Hospital Course HPI Initial Comments: The patient is an 84-year-old lady who had presented to the emergency department reporting that she had fallen 4 times in the past 5 days. The patient has denied any trauma. She had no dizziness or lightheadedness. Patient says that she just had her legs give out on her. The patient today has no pain. 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 The patient's last chemotherapy session was June 13, 2020. The patient also has a significant history of COPD. The patient also has been noted to have anemia and she does not want blood transfusion. Overall, the patient feels weak today and she feels like she could benefit from hospitalization and antibiotic treatment for possible pneumonia and urinary tract infection. The patient uses oxygen at home at 2 L/min. Assessment/Plan Comment:: The patient is an 84-year-old lady who has been admitted as an inpatient. The patient has lung cancer left lower lobe and there may be a superimposed pneumonia which will be treated. She also has a urinary tract infection which will both be treated with Rocephin 1 g IV on a daily basis. These will be descalated as cultures indicate. The patient also has been anemic with 7.4 g/dL hemoglobin and the patient at this time does not want to have any blood transfusion. The patient should have blood transfusions if her hemoglobin drops below 7.0 g/dL. Repeat laboratory studies have been ordered for the morning. The patient will have regular diet as tolerated. Because of her COPD the patient will also have DuoNeb nebulizers as well as continuing on her home medications for COPD. The patient will also be slowly fluid resuscitated with the use of saline at 75 mL/h. The patient will also be anticoagulated with Lovenox 30 mg subcu on a daily basis for DVT prophylaxis. PT OT has also been ordered for the patient to help with her strengthening and evaluate her ADLs. The patient does not want to go to any kind of rehabilitation at this time. Diagnosis: Stroke: No - Discharge Data Discharge Date: 06/18/20 Discharge Disposition: Home, Self-Care 01 Condition: Good - Referral to Home Health Primary Care Physician: Deonte Candelario MD - Discharge Diagnosis/Problem(s) (1) Generalized weakness SNOMED Code(s): 84584484 ICD Code: R53.1 - WEAKNESS Status: Acute (2) Lung cancer SNOMED Code(s): 140219871 ICD Code: C34.90 - MALIGNANT NEOPLASM OF UNSP PART OF UNSP BRONCHUS OR LUNG Status: Acute (3) Pneumonia SNOMED Code(s): 123018943 ICD Code: J18.9 - PNEUMONIA, UNSPECIFIED ORGANISM Status: Acute Priority: High Qualifiers: Pneumonia type: due to unspecified organism Laterality: left Lung location: lower lobe of lung Qualified Code(s): J18.9 - Pneumonia, unspecified organism (4) UTI (urinary tract infection) SNOMED Code(s): 40076108 ICD Code: N39.0 - URINARY TRACT INFECTION, SITE NOT SPECIFIED Status: Acute Priority: High Qualifiers: Urinary tract infection type: acute cystitis Hematuria presence: without hematuria Qualified Code(s): N30.00 - Acute cystitis without hematuria (5) Anemia SNOMED Code(s): 355195346 ICD Code: D64.9 - ANEMIA, UNSPECIFIED Status: Chronic Priority: Medium Qualifiers: Anemia type: unspecified type Qualified Code(s): D64.9 - Anemia, unspecified (6) COPD (chronic obstructive pulmonary disease) SNOMED Code(s): 06616335 ICD Code: J44.9 - CHRONIC OBSTRUCTIVE PULMONARY DISEASE, UNSPECIFIED Status: Chronic Priority: Medium Qualifiers: COPD type: unspecified COPD Qualified Code(s): J44.9 - Chronic obstructive pulmonary disease, unspecified (7) Fall SNOMED Code(s): 5420544, 106777506 ICD Code: W19.XXXA - UNSPECIFIED FALL, INITIAL ENCOUNTER Status: Chronic Priority: High Qualifiers: Encounter type: initial encounter Qualified Code(s): W19.XXXA - Unspecified fall, initial encounter (8) Iron deficiency anemia SNOMED Code(s): 80723834 ICD Code: D50.9 - IRON DEFICIENCY ANEMIA, UNSPECIFIED Status: Acute - Patient Summary/Data Consults: Consultations 06/15/20 07:34 OT Evaluation and Treatment [CONS] Routine PT Evaluation and Treatment [CONS] Routine Respiratory Care Assess and Treatment [CONS] Routine Hospital Course: 06/16/2020 82-year-old female with lung cancer admitted secondary to weakness and falls from presumed pneumonia and urinary tract infection. She states that she is feeling better with less weakness and fatigue. Pneumonia COPD Lung cancer * Chest x-ray shows increased density within the left mid and lower lung. Findings raise the possibility of pneumonia. * Initial WBC 14.0 today's 9.11 * Currently on Rocephin 1 g every 24 hours * Home O2 of 2 L. Patient continues on 2 L in the hospital. UTI, asymptomatic * Urine culture growing out gram negative rods * Patient on Rocephin * No history of symptoms Anemia * Admission hemoglobin 7.4, today's 7.1 * Significant drop in hemoglobin from 06/11/2020 when it was 8.9 * Likely multifactorial, no source of bleeding. * No recent iron studies. Plan * DC IV fluids * Continue Rocephin 1 g daily * Await urine cultures * Follow CBC * Continue home 2 L O2 * Hemoglobin continues to decrease, possible secondary to hemodilution * Check iron levels, vitamin B12, and folic acid * PT consult * VTE prophylaxis with Lovenox * CODE STATUS: Full code 06/17/2020 82-year-old female with lung cancer admitted secondary to weakness and falls found to have pneumonia and a UTI. Patient is significantly improved, but her hemoglobin continues to drop. White count today is down to 7, but her hemoglobin is down to 6.5. After a long discussion with her and her son she agreed to 2 units of packed red blood cells. Risks and benefits were discussed in detail and questions were answered. Patient also will need iron for her iron deficiency anemia. She states she does get occasional nosebleeds and her last colonoscopy was over 5 years ago. She is getting treated with Biologics for her lung cancer and last dose was last week. Patient will continue on Rocephin today and switch over to oral antibiotics tomorrow. Her urine did grow out E. coli sensitive to cephalosporins. Possible discharge tomorrow after iron infusion. 06/18/2020 Ofelia has had significant improvement over the last couple of days. She states that she feels a lot better after getting the blood yesterday. She received IV iron today have her iron deficiency looked at as an outpatient. She has completed her course of antibiotics for her UTI. She will continue on a full 7 days of antibiotics for her pneumonia. She will be sent home to finish the course with oral Omnicef. - Patient Instructions Diet: Usual Diet as Tolerated Activity: As Tolerated Driving: Do Not Drive Showering/Bathing: May Shower Other/Special Instructions: Please follow-up with your primary care provider within 1 week. - Discharge Plan *PRESCRIPTION DRUG MONITORING PROGRAM REVIEWED*: Not Applicable *COPY OF PRESCRIPTION DRUG MONITORING REPORT IN PATIENT KAIDEN: Not Applicable Prescriptions/Med Rec: Cefdinir [Omnicef] 300 mg PO BID #6 cap Home Medications: Home Meds Albuterol/Ipratropium [Combivent Respimat] 1 puff INH QID 12/21/14 [History] Ascorbic Acid [Vitamin C] 1 tab PO DAILY 12/21/14 [History] Budesonide [Pulmicort] 1 ampule NEB BID 12/21/14 [History] Multivitamin [Multivitamins] 1 tab PO DAILY 12/21/14 [History] Sertraline [Zoloft] 25 mg PO DAILY 12/21/14 [History] Vitamin E (dl, acetate) [Vitamin E] 1 cap PO DAILY 12/21/14 [History] Ergocalciferol (Vitamin D2) [Vitamin D] 400 unit PO DAILY 08/19/16 [History] Ferrous Sulfate [Iron] 325 mg PO DAILY 08/19/16 [History] Cyanocobalamin (Vitamin B-12) [Vitamin B-12] 1 tab PO ASDIRECTED 03/25/18 [History] Latanoprost 1 drop EYEBOTH BEDTIME 09/02/18 [History] Albuterol/Ipratropium [Combivent Respimat] 1 puff INH QID 06/15/20 [History] Levothyroxine 175 mcg PO ACBREAKFAST 06/15/20 [History] guaiFENesin [Mucinex] 600 mg PO BID PRN 06/15/20 [History] Cefdinir [Omnicef] 300 mg PO BID #6 cap 06/18/20 [Rx] Levothyroxine 75 mcg PO ACBREAKFAST tablet 06/18/20 [Rx] Patient Handouts: Chronic Obstructive Pulmonary Disease, Heart Failure Action Plan, Sepsis, Self Care, Adult Forms: ED Department Discharge Referrals: Deonte Candelairo MD [Primary Care Provider] - 06/24/20 9:30 am (please attend the scheduled hospital follow up appointment as scheduled.) - Discharge Summary/Plan Comment DC Time >30 min.: Yes - General Info Date of Service: 06/18/20 Subjective Update: Patient states she is feeling well. Denies any fever or chills. Appetite is good. Tolerated the iron infusion this morning well and the packed red blood cells yesterday. Functional Status: Reports: Pain Controlled - Review of Systems General: Reports: No Symptoms HEENT: Reports: No Symptoms Pulmonary: Reports: No Symptoms Cardiovascular: Reports: No Symptoms Gastrointestinal: Reports: No Symptoms Musculoskeletal: Reports: No Symptoms Psychiatric: Reports: No Symptoms - Patient Data Vitals - Most Recent: Last Vital Signs Temp 98.2 F 06/18/20 07:38 Pulse 95 06/18/20 07:38 Resp 20 06/18/20 07:38 BP 125/57 L 06/18/20 07:38 Pulse Ox 95 06/18/20 09:17 Weight - Most Recent: 154 lb 11.2 oz I&O - Last 24 hours: Intake & Output 06/17/20 06/18/20 06/18/20 22:59 06:59 14:59 Intake Total 750 700 120 Output Total 950 600 Balance -200 100 120 Lab Results - Last 24 hrs: Laboratory Results - last 24 hr 06/15/20 06/18/20 06/18/20 Range/Units 01:30 06:05 06:05 WBC 6.84 (3.98-10.04) K/mm3 RBC 3.36 L (3.98-5.22) M/mm3 Hgb 9.7 L D (11.2-15.7) gm/dl Hct 31.7 L (34.1-44.9) % MCV 94.3 D (79.4-94.8) fl MCH 28.9 (25.6-32.2) pg MCHC 30.6 L (32.2-35.5) g/dl RDW Std Deviation 51.9 H (36.4-46.3) fL Plt Count 230 (182-369) K/mm3 MPV 8.6 L (9.4-12.3) fl Neut % (Auto) 70.2 (34.0-71.1) % Lymph % (Auto) 15.2 L (19.3-51.7) % [place] % (Auto) 9.8 (4.7-12.5) % Eos % (Auto) 4.4 (0.7-5.8) Baso % (Auto) 0.1 (0.1-1.2) % Neut # (Auto) 4.80 (1.56-6.13) K/mm3 Lymph # (Auto) 1.04 L (1.18-3.74) K/mm3 [place] # (Auto) 0.67 H (0.24-0.36) K/mm3 Eos # (Auto) 0.30 (0.04-0.36) K/mm3 Baso # (Auto) 0.01 (0.01-0.08) K/mm3 Sodium 136 (136-145) mEq/L Potassium 4.1 (3.5-5.1) mEq/L Chloride 99 (98-107) mEq/L Carbon Dioxide 28 (21-32) mEq/L Anion Gap 13.1 (5-15) BUN 16 (7-18) mg/dL Creatinine 0.8 (0.55-1.02) mg/dL Est Cr Clr Drug Dosing 38.94 mL/min Estimated GFR (MDRD) > 60 (>60) mL/min BUN/Creatinine Ratio 20.0 H (14-18) Glucose 97 (83-115) mg/dL Calcium 8.7 (8.5-10.1) mg/dL Magnesium 2.1 (1.8-2.4) mg/dl Total Bilirubin 0.3 (0.2-1.0) mg/dL AST 21 (15-37) U/L ALT 26 (14-59) U/L Alkaline Phosphatase 129 H (46-116) U/L Total Protein 6.4 (6.4-8.2) g/dl Albumin 2.2 L (3.4-5.0) g/dl Globulin 4.2 gm/dL Albumin/Globulin Ratio 0.5 L (1-2) Blood Type A POSITIVE Gel Antibody Screen Negative Crossmatch See Detail AUG[place]IN Results - Last 24 hrs: Microbiology 06/15/20 03:20 Aerobic Blood Culture - Preliminary Blood - Venous - Lab Draw NO GROWTH AFTER 3 DAYS Anaerobic Blood Culture - Preliminary NO GROWTH AFTER 3 DAYS 06/15/20 03:10 Aerobic Blood Culture - Preliminary Blood - Venous NO GROWTH AFTER 3 DAYS Anaerobic Blood Culture - Preliminary NO GROWTH AFTER 3 DAYS 06/15/20 02:45 Urine Culture - Final Urine, Quick Cath (In-Out) Escherichia Coli Med Orders - Current: Current Medications Acetaminophen (Tylenol) 650 mg PO Q4H PRN PRN Reason: Pain (Mild 1-3)/fever Albuterol/Ipratropium (Duoneb 3.0-0.5 Mg/3 Ml) 3 ml NEB Q4H PRN PRN Reason: Shortness Of Breath/wheezing Last Admin: 06/18/20 03:59 Dose: 3 ml Documented by: Albuterol/Ipratropium (Duoneb 3.0-0.5 Mg/3 Ml) 3 ml INH QIDRT [facility] Last Admin: 06/18/20 09:16 Dose: 3 ml Documented by: Ascorbic Acid (Vitamin C) 500 mg PO DAILY [facility] Last Admin: 06/18/20 09:30 Dose: 500 mg Documented by: Budesonide (Pulmicort) 0.5 mg NEB BIDRT [facility] Last Admin: 06/18/20 06:07 Dose: 0.5 mg Documented by: Docusate Sodium (Colace) 100 mg PO BID PRN PRN Reason: Constipation Enoxaparin Sodium (Lovenox) 40 mg SUBCUT DAILY [facility] Last Admin: 06/18/20 09:30 Dose: 40 mg Documented by: Guaifenesin (Mucinex) 600 mg PO BID PRN PRN Reason: Congestion Ceftriaxone Sodium 1 gm/ (Sodium Chloride) 100 mls @ 200 mls/hr IV Q24H [facility] Last Admin: 06/18/20 09:22 Dose: 200 mls/hr Documented by: Ferric Sodium Gluconate Complex 250 mg/ Sodium Chloride 120 mls @ 60 mls/hr IV ONETIME ONE Stop: 06/18/20 11:29 Last Admin: 06/18/20 10:05 Dose: 60 mls/hr Documented by: Latanoprost (Xalatan 0.005% [facility] Soln) 0 ml EYEBOTH BEDTIME [facility] Last Admin: 06/17/20 21:56 Dose: 1 drop Documented by: Levothyroxine Sodium (Synthroid) 100 mcg PO ACBREAKFAST [facility] Last Admin: 06/18/20 07:03 Dose: 100 mcg Documented by: Levothyroxine Sodium (Levothyroxine) 75 mcg PO ACBREAKFAST [facility] Last Admin: 06/18/20 07:03 Dose: 75 mcg Documented by: Multivitamins (Thera) 1 each PO DAILY [facility] Last Admin: 06/18/20 09:30 Dose: 1 each Documented by: Oxycodone HCl (Oxycodone) 5 mg PO Q4H PRN PRN Reason: Pain (moderate 4-6) Sertraline HCl (Zoloft) 25 mg PO DAILY [facility] Last Admin: 06/18/20 09:30 Dose: 25 mg Documented by: Sodium Chloride (Saline Flush) 10 ml FLUSH ASDIRECTED PRN PRN Reason: Keep Vein Open Temazepam (Restoril) 7.5 mg PO BEDTIME PRN PRN Reason: Sleep Discontinued Medications Azithromycin (Zithromax) 500 mg PO ONETIME STA Stop: 06/15/20 02:56 Last Admin: 06/15/20 03:34 Dose: 500 mg Documented by: Budesonide (Pulmicort) Confirm Administered Dose 0.5 mg .ROUTE .STK-MED ONE Stop: 06/15/20 08:38 Last Admin: 06/15/20 08:59 Dose: Not Given Documented by: Ceftriaxone Sodium 1 gm/ (Sodium Chloride) 100 mls @ 200 mls/hr IV ONETIME STA Stop: 06/15/20 03:23 Last Admin: 06/15/20 03:34 Dose: 200 mls/hr Documented by: Sodium Chloride (Normal Saline) 1,000 mls @ 75 mls/hr IV ASDIRECTED [facility] Last Admin: 06/15/20 23:20 Dose: 75 mls/hr Documented by: Sodium Chloride (Normal Saline) 250 mls @ 25 mls/hr IV ASDIRECTED [facility] Morphine Sulfate (Morphine) 2 mg IVPUSH Q2H PRN PRN Reason: Pain (severe 7-10) Stop: 06/16/20 07:38 Non-Formulary Medication (Albuterol/Ipratropium) 1 puff INH QID FIDE - Exam Quality Assessment: Reports: Supplemental Oxygen General: Reports: Alert, Oriented HEENT: Reports: Pupils Equal, Mucous Membr. Moist/[place] Neck: Reports: Supple Lungs: Reports: Clear to Auscultation, Normal Respiratory Effort, Rales (Bibasilar) Cardiovascular: Reports: Regular Rate, Regular Rhythm GI/Abdominal Exam: Normal Bowel Sounds, Soft, Non-Tender, No Distention Extremities: Normal Inspection, Normal Range of Motion, Non-Tender, No Pedal Edema, Normal Capillary Refill Skin: Reports: Warm, Dry, Intact Psy/Mental Status: Reports: Alert, Normal Affect, Normal Mood *Q Meaningful Use (DIS) - VTE *Q VTE Mechanical Contraindications *Q: At Risk for Falls
[2020-06-18 12:19] VITALS: BP 137/61; PULSE 97
== END 2020-06-18 17:40 | disposition home or self-care (01) | DRG 689 ==
LOC: JD.ED 00:43 → JD.MS 07:34
PROVIDERS: ADMIT Internal Medicine; ATTEND Internal Medicine
DX: J18.1 Lobar pneumonia, unspecified organism (principal); N30.00 Acute cystitis without hematuria; D64.9 Anemia, unspecified; R53.1 Weakness; C34.92 Malignant neoplasm of unspecified part of left bronchus or lung; Z92.21 Personal history of antineoplastic chemotherapy; Z88.1 Allergy status to other antibiotic agents; Z91.013 Allergy to seafood; Z88.8 Allergy status to other drugs, medicaments and biological substances; Z91.018 Allergy to other foods; Z79.51 Long term (current) use of inhaled steroids; Z79.52 Long term (current) use of systemic steroids; Z79.899 Other long term (current) drug therapy; H91.90 Unspecified hearing loss, unspecified ear; I50.9 Heart failure, unspecified; J18.9 Pneumonia, unspecified organism; J44.0 Chronic obstructive pulmonary disease with (acute) lower respiratory infection; C34.90 Malignant neoplasm of unspecified part of unspecified bronchus or lung; D50.9 Iron deficiency anemia, unspecified; R32 Unspecified urinary incontinence; L30.9 Dermatitis, unspecified; Z87.891 Personal history of nicotine dependence; Z99.81 Dependence on supplemental oxygen; M19.90 Unspecified osteoarthritis, unspecified site; F32.9 Major depressive disorder, single episode, unspecified; Z90.49 Acquired absence of other specified parts of digestive tract; Z98.51 Tubal ligation status; Z86.73 Personal history of transient ischemic attack (TIA), and cerebral infarction without residual deficits; Z91.81 History of falling; Z85.21 Personal history of malignant neoplasm of larynx; Z98.42 Cataract extraction status, left eye; Z98.41 Cataract extraction status, right eye; Z20.822 Contact with and (suspected) exposure to COVID-19
CPT/HCPCS: 36415; 71045; 80053; 81001; 83605; 83735; 84484; 85007; 85027; 86850; 86900; 86901; 87040 ×2; 87086; 87088; 87186; 93005; 96365; 99285; A9270; J0696; 36430; 83540; 84466; 85025; 86922; 87641; 93010; 94640; 94667; 94668; 94761; 97162-GP; 97165-GO; 97530-GP; 97535-GO; 99223; 99233; 99239; J1650; J2916; J7030; J7620-GY; P9016; U0002

== ENCOUNTER 2020-09-14 00:12 | Emergency (ER) | payer MEDICARE, OTHER ==
--- NOTE | 2020-09-14 00:21 | EDM.PDOC ---
<Raymond Duke - Last Filed: 09/14/20 07:06> ED HPI GENERAL MEDICAL PROBLEM - General Chief Complaint: Cardiovascular Problem Stated Complaint: [facility] Time Seen by Provider: 09/14/20 00:12 - History of Present Illness INITIAL COMMENTS - FREE TEXT/NARRATIVE: 84-year-old female brought to emergency room shortly after midnight by EMS. Patient was initially picked up by [facility] from the [facility] out there and they were intercepted by [facility]. The patient was found with her oxygen off and unresponsive. [facility] found her O2 saturation to be approximately 70%. She was started on oxygen and brought this direction she was unresponsive in route. Upon arrival here her O2 saturation was in the upper 80s on nonrebreather. The information that we do have is the patient went to bed earlier than normal. They checked on her at 9:00 she was sleeping in her chair with her oxygen on. At 1030 they checked on her again she was sleeping in her chair oxygen off she was unarousable at that point [facility] was called. This is when her O2 saturation was 70%. They started transporting her this direction where they were intercepted by [facility] and continued the oxygen therapy. Upon arrival here O2 saturation was roughly 90%. Upon arrival here she was immediately taken to CT and then brought back where she was started on BiPAP. Patient has a known history of congestive heart failure and COPD that is O2 dependent no other history is available at this time. Upon arrival here according to nurses she had a [place] Coma Score of 4 during my exam she would open her eyes on command squeeze my fingers without difficulty speaking was limited she is on BiPAP and has an oral airway in place Situation is discussed with her son and [id number] she is a full code at this point. - Related Data Allergies Allergy/AdvReac Type Severity Reaction Status Date / Time shellfish derived Allergy Severe Airway Verified 09/14/20 00:28 Tightness ciprofloxacin AdvReac Syncope Verified 09/14/20 00:28 escitalopram oxalate AdvReac Syncope Verified 09/14/20 00:28 [From Lexapro] yogart Allergy Severe Swelling Uncoded 09/14/20 00:28 A&W root beer Allergy Hives Uncoded 09/14/20 00:28 oxalate Allergy Other Uncoded 09/14/20 00:28 Home Meds: Home Meds Albuterol/Ipratropium [Combivent Respimat] 1 puff INH QID 12/21/14 [History] Ascorbic Acid [Vitamin C] 1 tab PO DAILY 12/21/14 [History] Budesonide [Pulmicort] 1 ampule NEB BID 12/21/14 [History] Multivitamin [Multivitamins] 1 tab PO DAILY 12/21/14 [History] Sertraline [Zoloft] 25 mg PO DAILY 12/21/14 [History] Vitamin E (dl, acetate) [Vitamin E] 1 cap PO DAILY 12/21/14 [History] Ergocalciferol (Vitamin D2) [Vitamin D] 400 unit PO DAILY 08/19/16 [History] Ferrous Sulfate [Iron] 325 mg PO DAILY 08/19/16 [History] Cyanocobalamin (Vitamin B-12) [Vitamin B-12] 1 tab PO ASDIRECTED 03/25/18 [History] Latanoprost 1 drop EYEBOTH BEDTIME 09/02/18 [History] Albuterol/Ipratropium [Combivent Respimat] 1 puff INH QID 06/15/20 [History] Levothyroxine 175 mcg PO ACBREAKFAST 06/15/20 [History] guaiFENesin [Mucinex] 600 mg PO BID PRN 06/15/20 [History] Cefdinir [Omnicef] 300 mg PO BID #6 cap 06/18/20 [Rx] Levothyroxine 75 mcg PO ACBREAKFAST tablet 06/18/20 [Rx] Past Medical History HEENT History: Reports: Hard of Hearing Cardiovascular History: Reports: Heart Failure Other Cardiovascular History: heart murmur since young Respiratory History: Reports: Asthma, COPD, SOB Other Respiratory History: lung cancer in left lung-currently not active-went through chemo tx in 2017 Gastrointestinal History: Reports: Hemorrhoids Genitourinary History: Reports: Chronic Renal Insuffiency, Urinary Incontinence [employer] History: Reports: Other [employer] History: Tubal Litigation Musculoskeletal History: Reports: Osteoarthritis Other Musculoskeletal History: hip pain related to arthritis Neurological History: Reports: TIA Psychiatric History: Reports: Depression Endocrine/Metabolic History: Reports: Hypothyroidism Hematologic History: Reports: Anemia Other Hematologic History: takes an iron tablet Immunologic History: Reports: None 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, Other (See Below) Other Oncologic History: epiglottis carcinoma Dermatologic History: Reports: Eczema - Infectious Disease History Infectious Disease History: Reports: Chicken Pox, Influenza, Measles, Mumps, Scarlet Fever Other Infectious Disease History: flu - Past Surgical History HEENT Surgical History: Reports: Cataract Surgery, Oral Surgery, Tonsillectomy Cardiovascular Surgical History: Reports: None Other Cardiovascular Surgeries/Procedures: Prior cardiac arrest during labor and delivery Respiratory Surgical History: Reports: Lung Biopsies Other Respiratory Surgeries/Procedures: lung biopsy 08/18/16 GI Surgical History: Reports: Appendectomy Other GI Surgeries/Procedures: part of intestine removed during labor by OB doct or, not sure of surgery. Female Surgical History: Reports: D&C, Tubal Ligation Endocrine Surgical History: Reports: None Neurological Surgical History: Reports: None Oncologic Surgical History: Reports: Other (See Below) Dermatological Surgical History: Reports: None Social & Family History - Family History Family Medical History: No Pertinent Family History - Caffeine Use Caffeine Use: Reports: None - Living Situation & Occupation Living situation: Reports: , Assisted Living ([facility], in [place]) Occupation: Retired ED ROS GENERAL - Review of Systems Review Of Systems: See Below Reason Not Obtained: Unable to obtain at this time ED EXAM, GENERAL - Physical Exam Exam: See Below Exam Limited By: Other (Language difficulty mostly due to BiPAP in the oral airway) General Appearance: No Apparent Distress Eye Exam: Bilateral Eye: Normal Inspection Ears: Normal External Exam, Normal Canal (Small amount of cerumen in both external canals), Hearing Grossly Normal, Normal TMs Nose: Normal Inspection, Normal Mucosa, No Blood Throat/Mouth: Other (Limited due to the oral airway and BiPAP) Head: Atraumatic, Normocephalic Neck: Normal Inspection, Supple, Non-Tender, Full Range of Motion. No: Lymphadenopathy (L), Lymphadenopathy (R) Respiratory/Chest: No Respiratory Distress, Lungs Clear, Normal Breath Sounds Cardiovascular: Regular Rate, Rhythm, No Murmur, Other (Trace pitting edema) GI/Abdominal: Normal Bowel Sounds, Soft, Non-Tender #1 Interpretation EKG Date: 09/14/20 Rhythm: Other (Sinus tachycardia) Rate (Beats/Min): 110 [place]: Normal P-Wave: Present QRS: Normal ST-T: Normal QT: Normal Comparison: No Change (No change from 121 of this year) EKG Interpretation Comments: Abnormal EKG sinus tachycardia Course - Re-Assessments/Exams Free Text/Narrative Re-Assessment/Exam: 09/14/20 03:03 Doing better here in the department than when she arrived. Initially she was found to have oximetry readings about 90-91% on a nonrebreather. After returning from head CT she was placed on BiPAP 14/7. Her laboratory evaluation is little concerning for potassium that is 5.5 sodium is a little low at 129 she started on NS 100 cc an hour. Her troponin is elevated at 0.133 because of her elevated troponin the patient is probably better off being sent to a place that has cardiology backup. It is still unclear to me if the patient's initial cause was hypoxic or if she had a dysrhythmia that triggered all this. CVA is in the differential head CT is negative for any acute changes. 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 Over time the patient is a lot more awake and alert at this time are rechecking gases and c onsidering going back to supplemental oxygen from BiPAP. Case was discussed with Dr. Clements, hospitalist at [facility] in [place] who is kind enough to accept her in transport. 09/14/20 07:06 At this point we still have a delay in transfer we attempted to turn the BiPAP down but her oxygenation declined with this she is seems to be waking up some we will give her a little bit of Ativan and restore the BiPAP back to 14/7. With the delay we will go ahead and check another troponin. At this time is change of shift further care per Dr. Henry. Departure - Departure Time of Disposition: 03:08 Disposition: DC/Tfer to [facility] 02 Clinical Impression: Hypoxia, Elevated troponin CHF (congestive heart failure) Qualifiers: Heart failure type: unspecified Heart failure chronicity: acute Qualified Code(s): I50.9 - Heart failure, unspecified COPD (chronic obstructive pulmonary disease) Qualifiers: COPD type: unspecified COPD Qualified Code(s): J44.9 - Chronic obstructive pulmonary disease, unspecified - Discharge Information Referrals: Deonte Candelario MD [Primary Care Provider] - Forms: ED Department Discharge <Joe Henry - Last Filed: 09/14/20 09:29> Course - Vital Signs Last Recorded V/S: Last Vital Signs Temp 97.5 F 09/14/20 00:46 Pulse 109 H 09/14/20 00:46 Resp 21 H 09/14/20 00:46 BP 139/57 L 09/14/20 00:46 Pulse Ox 100 09/14/20 00:46 - Orders/Labs/Meds Orders: Active Orders 24 hr Category Date Time Status EKG Documentation Completion [RC] STAT Care 09/14/20 00:18 Active RT Aerosol Therapy [RC] ASDIRECTED Care 09/14/20 03:26 Active Chest 1V Frontal [CR] Stat Exams 09/14/20 00:18 Taken Head wo Cont [CT] Routine Exams 09/14/20 00:32 Taken CULTURE BLOOD [BC] Stat Lab 09/14/20 01:48 Results CULTURE BLOOD [BC] Stat Lab 09/14/20 02:18 Results Dextrose 5%-0.9% NaCl [Dextrose 5%-Normal Saline] 1,000 Med 09/14/20 06:45 Active ml IV ASDIRECTED BiPAP [RESPCARE] Routine Oth 09/14/20 01:11 Active Blood Culture x2 Reflex Set [OM.PC] Stat Oth 09/14/20 01:13 Ordered Medication Orders Dextrose/Sodium Chloride (Dextrose 5%-Normal Saline) 1,000 mls @ 75 mls/hr IV ASDIRECTED FIDE Last Admin: 09/14/20 06:44 Dose: 75 mls/hr Documented by: NATALIE Labs: Laboratory Tests 09/14/20 09/14/20 09/14/20 Range/Units 00:33 00:33 00:33 WBC 13.09 H (3.98-10.04) K/mm3 RBC 3.46 L (3.98-5.22) M/mm3 Hgb 10.5 L (11.2-15.7) gm/dl Hct 34.3 (34.1-44.9) % MCV 99.1 H (79.4-94.8) fl MCH 30.3 (25.6-32.2) pg MCHC 30.6 L (32.2-35.5) g/dl RDW Std Deviation 52.3 H (36.4-46.3) fL Plt Count 193 D (182-369) K/mm3 MPV 9.1 L (9.4-12.3) fl Neut % (Auto) 88.5 H (34.0-71.1) % Lymph % (Auto) 5.6 L (19.3-51.7) % Cocke % (Auto) 5.0 (4.7-12.5) % Eos % (Auto) 0.2 L (0.7-5.8) Baso % (Auto) 0.2 (0.1-1.2) % Neut # (Auto) 11.61 H (1.56-6.13) K/mm3 Lymph # (Auto) 0.73 L (1.18-3.74) K/mm3 Cocke # (Auto) 0.65 H (0.24-0.36) K/mm3 Eos # (Auto) 0.02 L (0.04-0.36) K/mm3 Baso # (Auto) 0.02 (0.01-0.08) K/mm3 Manual Slide Review Abnormal smear PT 10.3 (9.7-12.0) SECONDS INR 0.96 APTT 24.6 (21.7-31.4) SECONDS Puncture Site ABG pH (7.35-7.45) ABG pCO2 (35.0-45.0) mmHg ABG pO2 (80.0-100.0) mmHg ABG HCO3 (22.0-26.0) meq/L ABG O2 Saturation (96.0-97.0) % ABG Base Excess (-2-2.0) Marvin Test A-a Gradient mmHg O2 Delivery Device FiO2 (21.00-100.00) % Blood Gas Comments Sodium 132 L (136-145) mEq/L Potassium 5.5 H (3.5-5.1) mEq/L Chloride 97 L (98-107) mEq/L Carbon Dioxide 30 (21-32) mEq/L Anion Gap 10.5 (5-15) BUN 36 H (7-18) mg/dL Creatinine 1.5 H (0.55-1.02) mg/dL Est Cr Clr Drug Dosing TNP Estimated GFR (MDRD) 33 (>60) mL/min BUN/Creatinine Ratio 24.0 H (14-18) Glucose 166 H (83-115) mg/dL Lactic Acid (0.4-2.0) mmol/L Calcium 9.6 (8.5-10.1) mg/dL Total Bilirubin 0.4 (0.2-1.0) mg/dL AST 48 H (15-37) U/L ALT 35 (14-59) U/L Alkaline Phosphatase 148 H (46-116) U/L Troponin I 0.133 H* (0.00-0.056) ng/mL NT-Pro-B Natriuret Pep (0-450) pg/mL Total Protein 8.3 H (6.4-8.2) g/dl Albumin 3.3 L (3.4-5.0) g/dl Globulin 5.0 gm/dL Albumin/Globulin Ratio 0.7 L (1-2) TSH 3rd Generation (0.358-3.74) uIU/mL Urine Color (Yellow) Urine Appearance (Clear) Urine pH (5.0-8.0) Ur Specific [place] (1.005-1.030) Urine Protein (Negative) Urine Glucose (UA) (Negative) Urine Ketones (Negative) Urine Occult Blood (Negative) Urine Nitrite (Negative) Urine Bilirubin (Negative) Urine Urobilinogen (0.2-1.0) Ur Leukocyte Esterase (Negative) U Hyaline Cast (Auto) (0-5) /lpf Urine RBC (0-5) /hpf Urine WBC (0-5) /hpf Ur Squamous Epith Cells (0-5) /hpf Urine Bacteria (FEW) /hpf Urine Mucus (FEW) /hpf Influenza Type A RNA (NEGATIVE) Influenza Type B RNA (NEGATIVE) SARS-CoV-2 RNA (CHRISTY) (NEGATIVE) 09/14/20 09/14/20 09/14/20 Range/Units 00:33 00:33 00:40 WBC (3.98-10.04) K/mm3 RBC (3.98-5.22) M/mm3 Hgb (11.2-15.7) gm/dl Hct (34.1-44.9) % MCV (79.4-94.8) fl MCH (25.6-32.2) pg MCHC (32.2-35.5) g/dl RDW Std Deviation (36.4-46.3) fL Plt Count (182-369) K/mm3 MPV (9.4-12.3) fl Neut % (Auto) (34.0-71.1) % Lymph % (Auto) (19.3-51.7) % Cocke % (Auto) (4.7-12.5) % Eos % (Auto) (0.7-5.8) Baso % (Auto) (0.1-1.2) % Neut # (Auto) (1.56-6.13) K/mm3 Lymph # (Auto) (1.18-3.74) K/mm3 Cocke # (Auto) (0.24-0.36) K/mm3 Eos # (Auto) (0.04-0.36) K/mm3 Baso # (Auto) (0.01-0.08) K/mm3 Manual Slide Review PT (9.7-12.0) SECONDS INR APTT (21.7-31.4) SECONDS Puncture Site ABG pH (7.35-7.45) ABG pCO2 (35.0-45.0) mmHg ABG pO2 (80.0-100.0) mmHg ABG HCO3 (22.0-26.0) meq/L ABG O2 Saturation (96.0-97.0) % ABG Base Excess (-2-2.0) Marvin Test A-a Gradient mmHg O2 Delivery Device FiO2 (21.00-100.00) % Blood Gas Comments Sodium (136-145) mEq/L Potassium (3.5-5.1) mEq/L Chloride (98-107) mEq/L Carbon Dioxide (21-32) mEq/L Anion Gap (5-15) BUN (7-18) mg/dL Creatinine (0.55-1.02) mg/dL Est Cr Clr Drug Dosing Estimated GFR (MDRD) (>60) mL/min BUN/Creatinine Ratio (14-18) Glucose (83-115) mg/dL Lactic Acid (0.4-2.0) mmol/L Calcium (8.5-10.1) mg/dL Total Bilirubin (0.2-1.0) mg/dL AST (15-37) U/L ALT (14-59) U/L Alkaline Phosphatase (46-116) U/L Troponin I (0.00-0.056) ng/mL NT-Pro-B Natriuret Pep 864 H (0-450) pg/mL Total Protein (6.4-8.2) g/dl Albumin (3.4-5.0) g/dl Globulin gm/dL Albumin/Globulin Ratio (1-2) TSH 3rd Generation 0.226 L (0.358-3.74) uIU/mL Urine Color Yellow (Yellow) Urine Appearance Clear (Clear) Urine pH 7.0 (5.0-8.0) Ur Specific [place] 1.025 (1.005-1.030) Urine Protein 3+ H (Negative) Urine Glucose (UA) Trace H (Negative) Urine Ketones Negative (Negative) Urine Occult Blood 1+ H (Negative) Urine Nitrite Negative (Negative) Urine Bilirubin Negative (Negative) Urine Urobilinogen 0.2 (0.2-1.0) Ur Leukocyte Esterase Negative (Negative) U Hyaline Cast (Auto) 20-30 H (0-5) /lpf Urine RBC 0-5 (0-5) /hpf Urine WBC 0-5 (0-5) /hpf Ur Squamous Epith Cells 0-5 (0-5) /hpf Urine Bacteria Few (FEW) /hpf Urine Mucus Few (FEW) /hpf Influenza Type A RNA (NEGATIVE) Influenza Type B RNA (NEGATIVE) SARS-CoV-2 RNA (CHRISTY) (NEGATIVE) 09/14/20 09/14/20 09/14/20 Range/Units 00:50 00:53 02:18 WBC (3.98-10.04) K/mm3 RBC (3.98-5.22) M/mm3 Hgb (11.2-15.7) gm/dl Hct (34.1-44.9) % MCV (79.4-94.8) fl MCH (25.6-32.2) pg MCHC (32.2-35.5) g/dl RDW Std Deviation (36.4-46.3) fL Plt Count (182-369) K/mm3 MPV (9.4-12.3) fl Neut % (Auto) (34.0-71.1) % Lymph % (Auto) (19.3-51.7) % Cocke % (Auto) (4.7-12.5) % Eos % (Auto) (0.7-5.8) Baso % (Auto) (0.1-1.2) % Neut # (Auto) (1.56-6.13) K/mm3 Lymph # (Auto) (1.18-3.74) K/mm3 Cocke # (Auto) (0.24-0.36) K/mm3 Eos # (Auto) (0.04-0.36) K/mm3 Baso # (Auto) (0.01-0.08) K/mm3 Manual Slide Review PT (9.7-12.0) SECONDS INR APTT (21.7-31.4) SECONDS Puncture Site Lt radial ABG pH 7.30 L (7.35-7.45) ABG pCO2 59.4 H (35.0-45.0) mmHg ABG pO2 58.0 L (80.0-100.0) mmHg ABG HCO3 28.2 H (22.0-26.0) meq/L ABG O2 Saturation 87.1 L (96.0-97.0) % ABG Base Excess 1.4 (-2-2.0) Marvin Test A-a Gradient 153 mmHg O2 Delivery Device Bipap FiO2 40.00 (21.00-100.00) % Blood Gas Comments Bipap 14/6 Sodium (136-145) mEq/L Potassium (3.5-5.1) mEq/L Chloride (98-107) mEq/L Carbon Dioxide (21-32) mEq/L Anion Gap (5-15) BUN (7-18) mg/dL Creatinine (0.55-1.02) mg/dL Est Cr Clr Drug Dosing Estimated GFR (MDRD) (>60) mL/min BUN/Creatinine Ratio (14-18) Glucose (83-115) mg/dL Lactic Acid 2.0 (0.4-2.0) mmol/L Calcium (8.5-10.1) mg/dL Total Bilirubin (0.2-1.0) mg/dL AST (15-37) U/L ALT (14-59) U/L Alkaline Phosphatase (46-116) U/L Troponin I (0.00-0.056) ng/mL NT-Pro-B Natriuret Pep (0-450) pg/mL Total Protein (6.4-8.2) g/dl Albumin (3.4-5.0) g/dl Globulin gm/dL Albumin/Globulin Ratio (1-2) TSH 3rd Generation (0.358-3.74) uIU/mL Urine Color (Yellow) Urine Appearance (Clear) Urine pH (5.0-8.0) Ur Specific [place] (1.005-1.030) Urine Protein (Negative) Urine Glucose (UA) (Negative) Urine Ketones (Negative) Urine Occult Blood (Negative) Urine Nitrite (Negative) Urine Bilirubin (Negative) Urine Urobilinogen (0.2-1.0) Ur Leukocyte Esterase (Negative) U Hyaline Cast (Auto) (0-5) /lpf Urine RBC (0-5) /hpf Urine WBC (0-5) /hpf Ur Squamous Epith Cells (0-5) /hpf Urine Bacteria (FEW) /hpf Urine Mucus (FEW) /hpf Influenza Type A RNA Negative (NEGATIVE) Influenza Type B RNA Negative (NEGATIVE) SARS-CoV-2 RNA (CHRISTY) Negative (NEGATIVE) 09/14/20 09/14/20 09/14/20 Range/Units 02:58 06:35 07:13 WBC (3.98-10.04) K/mm3 RBC (3.98-5.22) M/mm3 Hgb (11.2-15.7) gm/dl Hct (34.1-44.9) % MCV (79.4-94.8) fl MCH (25.6-32.2) pg MCHC (32.2-35.5) g/dl RDW Std Deviation (36.4-46.3) fL Plt Count (182-369) K/mm3 MPV (9.4-12.3) fl Neut % (Auto) (34.0-71.1) % Lymph % (Auto) (19.3-51.7) % Cocke % (Auto) (4.7-12.5) % Eos % (Auto) (0.7-5.8) Baso % (Auto) (0.1-1.2) % Neut # (Auto) (1.56-6.13) K/mm3 Lymph # (Auto) (1.18-3.74) K/mm3 Cocke # (Auto) (0.24-0.36) K/mm3 Eos # (Auto) (0.04-0.36) K/mm3 Baso # (Auto) (0.01-0.08) K/mm3 Manual Slide Review PT (9.7-12.0) SECONDS INR APTT (21.7-31.4) SECONDS Puncture Site Rt radial Lt radial ABG pH 7.33 L 7.32 L (7.35-7.45) ABG pCO2 54.6 H 59.2 H (35.0-45.0) mmHg ABG pO2 76.0 L 64.0 L (80.0-100.0) mmHg ABG HCO3 28.2 H 29.8 H (22.0-26.0) meq/L ABG O2 Saturation 93.6 L 90.1 L (96.0-97.0) % ABG Base Excess 2.1 H 3.3 H (-2-2.0) Marvin Test Positive Positive A-a Gradient 141 219 mmHg O2 Delivery Device Bipap Bipap FiO2 40.00 50.00 (21.00-100.00) % Blood Gas Comments Bipap 14/7 Bipap 12/6 Sodium (136-145) mEq/L Potassium 5.0 (3.5-5.1) mEq/L Chloride (98-107) mEq/L Carbon Dioxide (21-32) mEq/L Anion Gap (5-15) BUN (7-18) mg/dL Creatinine (0.55-1.02) mg/dL Est Cr Clr Drug Dosing Estimated GFR (MDRD) (>60) mL/min BUN/Creatinine Ratio (14-18) Glucose (83-115) mg/dL Lactic Acid (0.4-2.0) mmol/L Calcium (8.5-10.1) mg/dL Total Bilirubin (0.2-1.0) mg/dL AST (15-37) U/L ALT (14-59) U/L Alkaline Phosphatase (46-116) U/L Troponin I 0.724 H* (0.00-0.056) ng/mL NT-Pro-B Natriuret Pep (0-450) pg/mL Total Protein (6.4-8.2) g/dl Albumin (3.4-5.0) g/dl Globulin gm/dL Albumin/Globulin Ratio (1-2) TSH 3rd Generation (0.358-3.74) uIU/mL Urine Color (Yellow) Urine Appearance (Clear) Urine pH (5.0-8.0) Ur Specific [place] (1.005-1.030) Urine Protein (Negative) Urine Glucose (UA) (Negative) Urine Ketones (Negative) Urine Occult Blood (Negative) Urine Nitrite (Negative) Urine Bilirubin (Negative) Urine Urobilinogen (0.2-1.0) Ur Leukocyte Esterase (Negative) U Hyaline Cast (Auto) (0-5) /lpf Urine RBC (0-5) /hpf Urine WBC (0-5) /hpf Ur Squamous Epith Cells (0-5) /hpf Urine Bacteria (FEW) /hpf Urine Mucus (FEW) /hpf Influenza Type A RNA (NEGATIVE) Influenza Type B RNA (NEGATIVE) SARS-CoV-2 RNA (CHRISTY) (NEGATIVE) Meds: Medications Generic Name Dose Route Start Last Admin Trade Name Freq PRN Reason Stop Dose Admin Dextrose/Sodium Chloride 1,000 mls @ 75 mls/hr 09/14/20 06:45 09/14/20 06:44 Dextrose 5%-Normal Saline IV 75 mls/hr ASDIRECTED FIDE Administration Discontinued Medications Generic Name Dose Route Start Last Admin Trade Name Freq PRN Reason Stop Dose Admin Albuterol/Ipratropium 3 ml 09/14/20 03:26 09/14/20 03:36 Albuterol/Ipratropium 3.0-0.5 Mg/3 Ml Neb Soln NEB 09/14/20 03:27 3 ml ONETIME ONE Administration Aspirin 324 mg 09/14/20 08:09 09/14/20 08:22 Aspirin 81 Mg Tab.Chew PO 09/14/20 08:10 324 mg ONETIME ONE Administration Lorazepam 0.5 mg 09/14/20 06:50 09/14/20 06:55 Lorazepam 2 Mg/Ml Sdv IVPUSH 09/14/20 06:51 0.5 mg ONETIME ONE Administration - Re-Assessments/Exams Free Text/Narrative Re-Assessment/Exam: 09/14/20 09:[address] Duke. The patient's troponin increased to 0.724. She left at about 0910 by [facility] ambulance. Departure - Departure Time of Disposition: 09:10 Sepsis Event Note (ED) - Focused Exam Vital Signs: Vital Signs Temp Pulse Resp BP Pulse Ox 09/14/20 00:46 97.5 F 109 H 21 H 139/57 L 100
[2020-09-14 00:55] VITALS: BP 139/57; PULSE 109
[2020-09-14 01:35] LABS: CORONAVIRUS COVID-19 NAA NEGATIVE (NEGATIVE)
[2020-09-14] MEDS ORDERED: Albuterol/Ipratropium 3.0-0.5 MG/3 ML Neb Soln NEB ONE (03:26)
[2020-09-14] MEDS ORDERED: Dextrose 5%-0.9% NaCl 1,000 ML IV SCH (06:45)
[2020-09-14] MEDS ORDERED: LORazepam 2 MG/ML SDV IVPUSH ONE (06:50)
[2020-09-14] MEDS ORDERED: Aspirin 81 MG Tab.Chew PO ONE (08:09)
--- NOTE | 2020-09-16 07:15 | CR ---
Chest: Portable view of the chest was obtained. Comparison: Prior chest x-ray of 06/24/20. Heart size and mediastinum are within normal limits for portable technique. Lungs show no acute parenchymal change. Improving density within the left lung base is seen most likely representing improving pneumonia. Lung markings are slightly increased which appear chronic. No acute osseous abnormality is appreciated. Impression: 1. Slightly improving left lung base from prior studies. 2. No definite acute abnormality is appreciated. Diagnostic code #2
--- NOTE | 2020-09-16 09:35 | CT ---
Head CT Technique: Multiple axial sections. Intravenous contrast was not utilized. Reconstructed coronal and sagittal images were obtained. Comparison: Prior head CT study of 09/01/18. Findings: Ventricles along with basal cisterns and sulci over the convexities are mildly prominent. Mild motion artifact is noted within the base cuts. Small old lacunar infarcts are seen within the right basal ganglia. Diminished density is noted within the periventricular white matter which is most likely due to small vessel ischemic demyelination change. No other abnormal parenchymal densities are seen. No intracranial hemorrhage is seen. No midline shift or mass-effect is seen. Bone window settings were reviewed. Visualized paranasal sinuses and mastoid sinuses show nothing acute. No acute calvarial abnormality is appreciated. Atherosclerotic calcification is noted within the carotid siphon. Impression: 1. Senescent change as described above. 2. No acute intracranial abnormality is appreciated. 3. No change from previous study is seen. Please correlate of patient's symptoms warrant further evaluation by MRI. Diagnostic code #2 I agree with preliminary report from [facility], finalized on 09/14/20, 1:44 AM CDT, code 1
== END 2020-09-14 09:15 ==
LOC: JD.ED 00:12
DX: J44.9 Chronic obstructive pulmonary disease, unspecified (principal); I50.9 Heart failure, unspecified; N18.9 Chronic kidney disease, unspecified; R79.89 Other specified abnormal findings of blood chemistry; E03.9 Hypothyroidism, unspecified; R09.02 Hypoxemia; Z91.013 Allergy to seafood; Z88.1 Allergy status to other antibiotic agents; Z88.8 Allergy status to other drugs, medicaments and biological substances; Z91.048 Other nonmedicinal substance allergy status; Z79.899 Other long term (current) drug therapy; Z86.73 Personal history of transient ischemic attack (TIA), and cerebral infarction without residual deficits; Z20.822 Contact with and (suspected) exposure to COVID-19
CPT/HCPCS: 0240U; 36415; 36600; 70450; 71045; 80053; 81001; 82803; 83605; 83880; 84132; 84443; 84484; 85025; 85610; 85730; 87040; 93005; 94660; 96374; 99285; A9270; J2060; J7042; 93010; J7620-GY

== ENCOUNTER 2021-02-18 14:27 | Emergency (ER) | payer MEDICARE, OTHER, SELFPAY ==
[2021-02-18] MEDS ORDERED: Sodium Chloride 0.9% 10 ML Syringe FLUSH PRN (15:36)
--- NOTE | 2021-02-18 15:51 | EDM.PDOC ---
ED HPI GENERAL MEDICAL PROBLEM - General Chief Complaint: Respiratory Problem Stated Complaint: FEVER WEAK Time Seen by Provider: 02/18/21 15:32 Source of Information: Reports: Patient, RN Notes Reviewed History Limitations: Reports: No Limitations - History of Present Illness INITIAL COMMENTS - FREE TEXT/NARRATIVE: Patient is an 85-year-old female who presents to the ER for the evaluation of her congested cough. Patient is on oxygen chronically, and O2 sats are about 97% on 2 L nasal cannula. Patient resides at the [facility]. Patient states for the past 3 days, she is feeling ill. She notes she is getting yellow- colored sputum up with a congested sounding cough. Patient has had pneumonia in the past, is concerned that she may have caught pneumonia once again. Patient did get the Moderna COVID vaccine. She states that she had a nasal swab performed yesterday but did not know the results of this. I did try to call the [facility] for results of this however they were not able to provide me any information. Patient does not think she is had a fever, or any sort of chills she is complaining of a congested cough, and worsening shortness of breath but no nausea vomiting or diarrhea. Primary care provider is Dr. Irwin. - Related Data Allergies Allergy/AdvReac Type Severity Reaction Status Date / Time shellfish derived Allergy Severe Airway Verified 02/18/21 15:26 Tightness ciprofloxacin AdvReac Severe Syncope Verified 02/18/21 15:26 escitalopram oxalate AdvReac Severe Syncope Verified 02/18/21 15:26 [From Lexapro] A&W root beer Allergy Severe Hives Uncoded 02/18/21 15:26 oxalate Allergy Severe Other Uncoded 02/18/21 15:26 yogart Allergy Severe Swelling Uncoded 02/18/21 15:26 Home Meds: Home Meds Albuterol/Ipratropium [Combivent Respimat] 1 puff INH QID 12/21/14 [History] Ascorbic Acid [Vitamin C] 1 tab PO DAILY 12/21/14 [History] Budesonide [Pulmicort] 1 ampule NEB BID 12/21/14 [History] Multivitamin [Multivitamins] 1 tab PO DAILY 12/21/14 [History] Sertraline [Zoloft] 25 mg PO DAILY 12/21/14 [History] Vitamin E (dl, acetate) [Vitamin E] 1 cap PO DAILY 12/21/14 [History] Ergocalciferol (Vitamin D2) [Vitamin D] 400 unit PO DAILY 08/19/16 [History] Ferrous Sulfate [Iron] 325 mg PO DAILY 08/19/16 [History] Cyanocobalamin (Vitamin B-12) [Vitamin B-12] 1 tab PO ASDIRECTED 03/25/18 [History] Latanoprost 1 drop EYEBOTH BEDTIME 09/02/18 [History] Albuterol/Ipratropium [Combivent Respimat] 1 puff INH QID 06/15/20 [History] Levothyroxine 175 mcg PO ACBREAKFAST 06/15/20 [History] guaiFENesin [Mucinex] 600 mg PO BID PRN 06/15/20 [History] Cefdinir [Omnicef] 300 mg PO BID #6 cap 06/18/20 [Rx] Levothyroxine 75 mcg PO ACBREAKFAST tablet 06/18/20 [Rx] Doxycycline [Vibramycin] 100 mg PO BID 7 Days #14 tab 02/18/21 [Rx] Past Medical History HEENT History: Reports: Hard of Hearing Cardiovascular History: Reports: Heart Failure Other Cardiovascular History: heart murmur since young Respiratory History: Reports: Asthma, COPD, Pneumonia, Recurrent, SOB Other Respiratory History: lung cancer in left lung-currently not active-went through chemo tx in 2017 Gastrointestinal History: Reports: Hemorrhoids Genitourinary History: Reports: Chronic Renal Insuffiency, Urinary Incontinence HOME IMPROVEMENT ADVISOR History: Reports: Musculoskeletal History: Reports: Osteoarthritis Other Musculoskeletal History: hip pain related to arthritis Neurological History: Reports: TIA Psychiatric History: Reports: Depression Endocrine/Metabolic History: Reports: Hypothyroidism Hematologic History: Reports: Anemia Other Hematologic History: takes an iron tablet 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, Other (See Below) Other Oncologic History: epiglottis carcinoma Dermatologic History: Reports: Eczema - Infectious Disease History Infectious Disease History: Reports: Chicken Pox, Influenza, Measles, Mumps, Scarlet Fever Other Infectious Disease History: flu - Past Surgical History HEENT Surgical History: Reports: Cataract Surgery, Oral Surgery, Tonsillectomy Other Cardiovascular Surgeries/Procedures: Prior cardiac arrest during labor and delivery Respiratory Surgical History: Reports: Lung Biopsies Other Respiratory Surgeries/Procedures: lung biopsy 08/18/16 GI Surgical History: Reports: Appendectomy Other GI Surgeries/Procedures: part of intestine removed during labor by OB doctor, not sure of surgery. Female Surgical History: Reports: D&C, Tubal Ligation Oncologic Surgical History: Reports: Other (See Below) Social & Family History - Family History Family Medical History: No Pertinent Family History - Tobacco Use Tobacco Use Status *Q: Never Tobacco User - Caffeine Use Caffeine Use: Reports: None Caffeine Use Comment: Unable to verify due to pt condition. - Recreational Drug Use Recreational Drug Use: No - Living Situation & Occupation Living situation: Reports: , Assisted Living ([facility]) Occupation: Retired ED ROS GENERAL - Review of Systems Review Of Systems: Comprehensive ROS is negative, except as noted in HPI. ED EXAM, GENERAL - Physical Exam Exam: See Below Exam Limited By: No Limitations General Appearance: Alert, WD/WN, No Apparent Distress Respiratory/Chest: No Respiratory Distress, No Accessory Muscle Use, Chest Non- Tender, Decreased Breath Sounds (bilaterally), Rhonchi (diffuse bilaterally). No: Wheezing Cardiovascular: Normal Peripheral Pulses, Regular Rate, Rhythm, No Edema Extremities: Normal Inspection, Normal Capillary Refill Neurological: Alert, Oriented, Normal Cognition, No Motor/Sensory Deficits Psychiatric: Normal Affect, Normal Mood Skin Exam: Warm, Dry, Intact, Normal Color, No Rash Course - Vital Signs Last Recorded V/S: Last Vital Signs Temp 97.6 F 02/18/21 15:24 Pulse 103 H 02/18/21 15:24 Resp 20 02/18/21 15:24 BP 131/58 L 02/18/21 15:24 Pulse Ox 98 02/18/21 15:24 - Orders/Labs/Meds Orders: Active Orders 24 hr Category Date Time Status Peripheral IV Care [RC] . DIRECTED Care 02/18/21 15:36 Active CORONAVIRUS COVID-19 CHRISTY [MOLEC] Stat Lab 02/18/21 15:35 Ordered Sodium Chloride 0.9% [Saline Flush] Med 02/18/21 15:36 Active 10 ml FLUSH ASDIRECTED PRN cefTRIAXone [Rocephin] 2 gm Med 02/18/21 18:25 Ordered Sodium Chloride 0.9% [Normal Saline] 100 ml IV ONETIME Peripheral IV Insertion Adult [OM.PC] Routine Oth 02/18/21 15:36 Ordered Medication Orders Ceftriaxone Sodium 2 gm/ (Sodium Chloride) 100 mls @ 200 mls/hr IV ONETIME ONE Stop: 02/18/21 18:54 Sodium Chloride (Sodium Chloride 0.9% 10 Ml Syringe) 10 ml FLUSH ASDIRECTED PRN PRN Reason: Keep Vein Open Last Admin: 02/18/21 17:00 Dose: 10 ml Documented by: NATALI Labs: Laboratory Tests 02/18/21 02/18/21 02/18/21 Range/Units 17:00 17:00 17:00 WBC 9.91 (3.98-10.04) K/mm3 RBC 3.01 L (3.98-5.22) M/mm3 Hgb 8.6 L (11.2-15.7) gm/dl Hct 28.4 L (34.1-44.9) % MCV 94.4 D (79.4-94.8) fl MCH 28.6 (25.6-32.2) pg MCHC 30.3 L (32.2-35.5) g/dl RDW Std Deviation 54.5 H (36.4-46.3) fL Plt Count 343 (182-369) K/mm3 MPV 8.9 L (9.4-12.3) fl Neut % (Auto) 72.4 H (34.0-71.1) % Lymph % (Auto) 18.5 L (19.3-51.7) % Milam % (Auto) 5.5 (4.7-12.5) % Eos % (Auto) 3.1 (0.7-5.8) Baso % (Auto) 0.2 (0.1-1.2) % Neut # (Auto) 7.17 H (1.56-6.13) K/mm3 Lymph # (Auto) 1.83 (1.18-3.74) K/mm3 Milam # (Auto) 0.55 H (0.24-0.36) K/mm3 Eos # (Auto) 0.31 (0.04-0.36) K/mm3 Baso # (Auto) 0.02 (0.01-0.08) K/mm3 Sodium 133 L (136-145) mEq/L Potassium 3.9 (3.5-5.1) mEq/L Chloride 94 L (98-107) mEq/L Carbon Dioxide 35 H (21-32) mEq/L Anion Gap 7.9 (5-15) BUN 26 H (7-18) mg/dL Creatinine 0.9 (0.55-1.02) mg/dL Est Cr Clr Drug Dosing 40.90 mL/min Estimated GFR (MDRD) 60 (>60) mL/min BUN/Creatinine Ratio 28.9 H (14-18) Glucose 107 H (70-99) mg/dL Calcium 9.8 (8.5-10.1) mg/dL Magnesium 2.6 H (1.8-2.4) mg/dL Total Bilirubin 0.3 (0.2-1.0) mg/dL AST 30 (15-37) U/L ALT 23 (14-59) U/L Alkaline Phosphatase 187 H (46-116) U/L C-Reactive Protein 23.4 H* (<1.0) mg/dL Total Protein 7.2 (6.4-8.2) g/dl Albumin 2.4 L (3.4-5.0) g/dl Globulin 4.8 gm/dL Albumin/Globulin Ratio 0.5 L (1-2) Meds: Medications Generic Name Dose Route Start Last Admin Trade Name Freq PRN Reason Stop Dose Admin Ceftriaxone Sodium 2 gm/ 100 mls @ 200 mls/hr 02/18/21 18:25 Sodium Chloride IV 02/18/21 18:54 ONETIME ONE Sodium Chloride 10 ml 02/18/21 15:36 02/18/21 17:00 Sodium Chloride 0.9% 10 Ml Syringe FLUSH 10 ml ASDIRECTED PRN Administration Keep Vein Open - Re-Assessments/Exams Free Text/Narrative Re-Assessment/Exam: 02/18/21 15:55 Patient presents to the ER for the evaluation of her congested cough. We will go ahead and swab for COVID-19 at this time, get some basic labs and a chest x- ray for further evaluation. 02/18/21 16:11 Patient's chest x-ray has been read by radiology, patchy increased density within both lower lungs as well as within the left perihilar region most likely representing area of bronchitis and pneumonia, please correlate. I would agree with this at this time. Again all labs are pending we will see if this is more of a bacterial nature or viral nature when we get labs back. 02/18/21 18:29 Patient CBC has come back, hemoglobin is somewhat low at 8.6, white count is not elevated, CMP demonstrates an elevated BUN, but normal kidney function, and an elevated CRP at 24. Historically the patient's BUN and hemoglobin have always been somewhat low. There was some miscommunication with nursing staff, and the COVID-19 screen got done just a little bit ago. We will need to know if this is positive or negative, as the patient does reside in a assisted living type facility. In the meantime we will treat the patient for ongoing pneumonia due to the chest x-ray findings. She will get 2 g Rocephin in the ER. 02/18/21 19:19 Patient's COVID-19 screen is negative. We will go ahead and get her discharged back to the [facility] with a course of oral antibiotics and have her follow-up in clinic if not much better in a few days time. Departure - Departure Time of Disposition: 19:19 Disposition: Home, Self-Care 01 Condition: Good Clinical Impression: Pneumonia Qualifiers: Pneumonia type: due to unspecified organism Laterality: bilateral Lung location: lower lobe of lung Qualified Code(s): J18.9 - Pneumonia, unspecified organism - Discharge Information *PRESCRIPTION DRUG MONITORING PROGRAM REVIEWED*: No *COPY OF PRESCRIPTION DRUG MONITORING REPORT IN PATIENT KAIDEN: No Instructions: Hospital-Acquired Pneumonia Referrals: Deonte Candelario MD [Primary Care Provider] - Forms: ED Department Discharge Additional Instructions: You were evaluated in the ER today for your worsening respiratory symptoms. Clinical work-up today included a chest x-ray, labs, and a COVID-19 screen. Chest x-ray was suspicious for ongoing lower lobe pneumonia in both of your lungs. Your COVID-19 screen came back negative. You were given 1 dose of IV antibiotics in the ER, and will need to continue oral antibiotics for ongoing management. This will be doxycycline 1 tablet 2 times a day for the next 7 days. This medication was electronically sent to the [place] [facility] located in the [facility]. Continue all other medications as previously prescribed by your regular care provider. Recommend close follow-up with your care provider, hopefully sometime by the end of this week to make sure that your symptoms are getting better as expected. Do not hesitate to return to the ER at any time if symptoms change or worsen. Sepsis Event Note (ED) - Evaluation Sepsis Screening Result: No Definite Risk - Focused Exam Vital Signs: Vital Signs Temp Pulse Resp BP Pulse Ox 02/18/21 15:24 97.6 F 103 H 20 131/58 L 98 - My Orders Last 24 Hours: My Active Orders 02/18/21 15:35 CORONAVIRUS COVID-19 CHRISTY [MOLEC] Stat 02/18/21 15:36 Peripheral IV Care [RC] . DIRECTED Sodium Chloride 0.9% [Saline Flush] 10 ml FLUSH ASDIRECTED PRN Peripheral IV Insertion Adult [OM.PC] Routine 02/18/21 18:25 cefTRIAXone [Rocephin] 2 gm Sodium Chloride 0.9% [Normal Saline] 100 ml IV ONETIME - Assessment/Plan Last 24 Hours: My Active Orders 02/18/21 15:35 CORONAVIRUS COVID-19 CHRISTY [MOLEC] Stat 02/18/21 15:36 Peripheral IV Care [RC] . DIRECTED Sodium Chloride 0.9% [Saline Flush] 10 ml FLUSH ASDIRECTED PRN Peripheral IV Insertion Adult [OM.PC] Routine 02/18/21 18:25 cefTRIAXone [Rocephin] 2 gm Sodium Chloride 0.9% [Normal Saline] 100 ml IV ONETIME
--- NOTE | 2021-02-18 16:03 | CR ---
Chest: Portable view of the chest was obtained. Comparison: Prior chest x-ray of 12/10/20. Patchy areas of increased density are seen within both lower lungs. Patchy left perihilar density is also noted. Heart size and mediastinum are within normal limits. Bony structures show mild degenerative change within the spine. Osteopenia is also present. Impression: 1. Patchy increased density within both lower lungs as well as within the left perihilar region most likely representing areas of bronchitis and pneumonia. Please correlate. 2. Other incidental findings as noted above. Diagnostic code #3
[2021-02-18] MEDS ORDERED: cefTRIAXone 2 GM in Sodium Chloride 0.9% 100 ML IV ONE (18:25)
[2021-02-18 22:16] VITALS: BP 120/65; PULSE 96
== END 2021-02-18 20:04 | disposition home or self-care (01) ==
LOC: JD.ED 14:27
DX: J18.9 Pneumonia, unspecified organism (principal); I50.9 Heart failure, unspecified; J44.9 Chronic obstructive pulmonary disease, unspecified; N18.9 Chronic kidney disease, unspecified; E03.9 Hypothyroidism, unspecified; Z20.822 Contact with and (suspected) exposure to COVID-19; Z91.030 Bee allergy status; Z88.1 Allergy status to other antibiotic agents; Z86.73 Personal history of transient ischemic attack (TIA), and cerebral infarction without residual deficits; Z79.899 Other long term (current) drug therapy; Z88.8 Allergy status to other drugs, medicaments and biological substances; Z91.013 Allergy to seafood
CPT/HCPCS: 36415; 71045; 80053; 83735; 85025; 86140; 96365; 99285; J0696; U0002

== ENCOUNTER 2021-03-11 09:08 | Emergency (ER) | payer MEDICARE ==
--- NOTE | 2021-03-11 10:08 | EDM.PDOC ---
ED HPI GENERAL MEDICAL PROBLEM - General Chief Complaint: Respiratory Problem Stated Complaint: [facility] Time Seen by Provider: 03/11/21 10:07 - History of Present Illness INITIAL COMMENTS - FREE TEXT/NARRATIVE: 85-year-old female sent to us from the intermediate facility with low O2 and low blood pressure. Patient was found to be hypoxic shatter O2 saturation increased and her blood pressure dropped. The timing of everything is a little unknown. At this time the patient is alert and oriented and doing well. Her O2 saturation is 97% blood pressure is 110/58. Her blood pressure oxygen has been turned down to 3 L. The patient was on 5 L when she came in. I suspect she is a CO2 retainer of an ABG pending on her. Patient denies any chest pain or chest pressure. She is not more swollen than normal. She does have a history of COPD and CHF. She is doing better at the retirement they have her up and walking after what sounds like a CVA when she was in [place] this spring. At the retirement her afternoon blood pressure systolics are usually in the 90s. And her vitals represent where she is at this particular time. - Related Data Allergies Allergy/AdvReac Type Severity Reaction Status Date / Time shellfish derived Allergy Severe Airway Verified 02/18/21 15:26 Tightness ciprofloxacin AdvReac Severe Syncope Verified 02/18/21 15:26 escitalopram oxalate AdvReac Severe Syncope Verified 02/18/21 15:26 [From Lexapro] A&W root beer Allergy Severe Hives Uncoded 02/18/21 15:26 oxalate Allergy Severe Other Uncoded 02/18/21 15:26 yogart Allergy Severe Swelling Uncoded 02/18/21 15:26 Home Meds: Home Meds Acetaminophen 650 mg PO Q4H PRN 03/11/21 [History] Alum Hydrox/Mag Hydrox/Simeth [Maalox Advanced] 15 ml PO Q6HR PRN 03/11/21 [History] Budesonide/Formoterol Fumarate [Symbicort 160-4.5 Mcg Inhaler] 2 puff PO BID 03/11/21 [History] Dextran 70/Hypromellose [Artificial Tears] 1 drop EYEBOTH Q6H PRN 03/11/21 [History] Diclofenac Sodium [Voltaren 1% Gel] 2 gram TOP QID PRN 03/11/21 [History] Doxycycline [Vibramycin] 100 mg PO BID #14 cap 03/11/21 [Rx] Ferrous Sulfate 325 mg PO DAILY 03/11/21 [History] Flu Vac Qv 2020(18Yr Up)Rcm/Pf [Flublok Quad 7520-2580 Syringe] 1 injection IM ONETIME 03/11/21 [History] Furosemide [Lasix] 20 mg PO DAILY 03/11/21 [History] Ipratropium/Albuterol Sulfate [Iprat-Albut 0.5-3(2.5) MG/3 ML] 1 ampule INH TID 03/11/21 [History] L. Acidophilus/Pectin, [place] [Acidophilus Capsule] 1 cap PO DAILY 03/11/21 [History] LORazepam [Ativan] 0.5 mg PO Q8H PRN 03/11/21 [History] Levothyroxine [Synthroid] 100 mcg PO ACBREAKFAST 03/11/21 [History] Multivitamin with Iron [Multivitamins with Iron] 1 tab PO DAILY 03/11/21 [History] Sennosides [Senna] 1 tab PO BID 03/11/21 [History] Sertraline [Zoloft] 25 mg PO BEDTIME 03/11/21 [History] guaiFENesin [Guaifenesin] 400 mg PO BID 03/11/21 [History] polyethylene glycoL 3350 [Miralax] 17 gram PO DAILY PRN 03/11/21 [History] Past Medical History HEENT History: Reports: Hard of Hearing Cardiovascular History: Reports: Heart Failure Other Cardiovascular History: heart murmur since young Respiratory History: Reports: Asthma, COPD, Pneumonia, Recurrent, SOB Other Respiratory History: lung cancer in left lung-currently not active-went through chemo tx in 2017 Gastrointestinal History: Reports: Hemorrhoids Genitourinary History: Reports: Chronic Renal Insuffiency, Urinary Incontinence MOLDER FEEDER History: Reports: Other MOLDER FEEDER History: Tubal Litigation Musculoskeletal History: Reports: Osteoarthritis Other Musculoskeletal History: hip pain related to arthritis Neurological History: Reports: TIA Psychiatric History: Reports: Depression Endocrine/Metabolic History: Reports: Hypothyroidism Hematologic History: Reports: Anemia Other Hematologic History: takes an iron tablet 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, Other (See Below) Other Oncologic History: epiglottis carcinoma Dermatologic History: Reports: Eczema - Infectious Disease History Infectious Disease History: Reports: Chicken Pox, Influenza, Measles, Mumps, Scarlet Fever Other Infectious Disease History: flu - Past Surgical History HEENT Surgical History: Reports: Cataract Surgery, Oral Surgery, Tonsillectomy Cardiovascular Surgical History: Reports: None Other Cardiovascular Surgeries/Procedures: Prior cardiac arrest during labor and delivery Respiratory Surgical History: Reports: Lung Biopsies Other Respiratory Surgeries/Procedures: lung biopsy 08/18/16 GI Surgical History: Reports: Appendectomy Other GI Surgeries/Procedures: part of intestine removed during labor by OB doctor, not sure of surgery. Female Surgical History: Reports: D&C, Tubal Ligation Endocrine Surgical History: Reports: None Neurological Surgical History: Reports: None Oncologic Surgical History: Reports: Other (See Below) Dermatological Surgical History: Reports: None Social & Family History - Family History Family Medical History: No Pertinent Family History - Tobacco Use Tobacco Use Status *Q: Never Tobacco User - Caffeine Use Caffeine Use: Reports: None Caffeine Use Comment: Unable to verify due to pt condition. - Living Situation & Occupation Living situation: Reports: , Assisted Living ([facility]) Occupation: Retired ED ROS GENERAL - Review of Systems Review Of Systems: See Below Constitutional: Reports: No Symptoms HEENT: Reports: No Symptoms Respiratory: Reports: Other (O2 dependent COPD no worsening cough) Cardiovascular: Reports: Dyspnea on Exertion (Chronic). Denies: Chest Pain Endocrine: Reports: No Symptoms GI/Abdominal: Reports: No Symptoms : Reports: No Symptoms Musculoskeletal: Reports: No Symptoms Skin: Reports: No Symptoms Neurological: Reports: No Symptoms Psychiatric: Reports: No Symptoms ED EXAM, GENERAL - Physical Exam Exam: See Below Exam Limited By: No Limitations General Appearance: Alert, No Apparent Distress, Other (She is alert and oriented and very cooperative) Eye Exam: Bilateral Eye: Normal Inspection Ears: Normal External Exam, Normal Canal, Hearing Grossly Normal, Normal TMs Nose: Normal Inspection, Normal Mucosa, No Blood, Other (Nasal cannula in place) Throat/Mouth: Normal Inspection, Normal Lips, Normal Gums, Normal Oropharynx, Normal Voice, No Airway Compromise Head: Atraumatic, Normocephalic Neck: Normal Inspection, Supple, Non-Tender, Full Range of Motion, Other (No JVD). No: Lymphadenopathy (L), Lymphadenopathy (R) Respiratory/Chest: No Respiratory Distress, Lungs Clear, Decreased Breath Sounds Cardiovascular: Regular Rate, Rhythm, No Edema, No Murmur GI/Abdominal: Normal Bowel Sounds, Soft, Non-Tender Back Exam: Normal Inspection. No: CVA Tenderness (L), CVA Tenderness (R) Extremities: Normal Inspection, Normal Range of Motion, Non-Tender Neurological: Alert, Oriented, Normal Cognition #1 Interpretation EKG Date: 03/11/21 Rhythm: NSR Rate (Beats/Min): 87 [place]: Normal P-Wave: Present QRS: Normal ST-T: Normal QT: Normal Comparison: No Change (Her tachycardia from 09/14/2020 has resolved otherwise no significant changes) EKG Interpretation Comments: Fairly normal EKG Course - Vital Signs Last Recorded V/S: Last Vital Signs Temp 36.6 C 03/11/21 09:30 Pulse 84 03/11/21 10:55 Resp 20 03/11/21 10:55 BP 115/58 L 03/11/21 10:55 Pulse Ox 99 03/11/21 10:55 - Orders/Labs/Meds Labs: Laboratory Tests 03/11/21 03/11/21 03/11/21 Range/Units 10:10 10:10 10:10 WBC 12.81 H (3.98-10.04) K/mm3 RBC 2.87 L (3.98-5.22) M/mm3 Hgb 8.0 L (11.2-15.7) gm/dl Hct 26.5 L (34.1-44.9) % MCV 92.3 (79.4-94.8) fl MCH 27.9 (25.6-32.2) pg MCHC 30.2 L (32.2-35.5) g/dl RDW Std Deviation 55.3 H (36.4-46.3) fL Plt Count 315 (182-369) K/mm3 MPV 8.4 L (9.4-12.3) fl Neut % (Auto) 78.1 H (34.0-71.1) % Lymph % (Auto) 16.0 L (19.3-51.7) % Randall % (Auto) 5.1 (4.7-12.5) % Eos % (Auto) 0.3 L (0.7-5.8) Baso % (Auto) 0.2 (0.1-1.2) % Neut # (Auto) 10.01 H (1.56-6.13) K/mm3 Lymph # (Auto) 2.05 (1.18-3.74) K/mm3 Randall # (Auto) 0.65 H (0.24-0.36) K/mm3 Eos # (Auto) 0.04 (0.04-0.36) K/mm3 Baso # (Auto) 0.02 (0.01-0.08) K/mm3 Puncture Site ABG pH (7.35-7.45) ABG pCO2 (35.0-45.0) mmHg ABG pO2 (80.0-100.0) mmHg ABG HCO3 (22.0-26.0) meq/L ABG O2 Saturation (96.0-97.0) % ABG Base Excess (-2-2.0) Marvin Test O2 Delivery Device Oxygen Flow Rate Sodium 131 L (136-145) mEq/L Potassium 4.1 (3.5-5.1) mEq/L Chloride 96 L (98-107) mEq/L Carbon Dioxide 33 H (21-32) mEq/L Anion Gap 6.1 (5-15) BUN 31 H (7-18) mg/dL Creatinine 1.1 H (0.55-1.02) mg/dL Est Cr Clr Drug Dosing TNP Estimated GFR (MDRD) 47 (>60) mL/min BUN/Creatinine Ratio 28.2 H (14-18) Glucose 99 (70-99) mg/dL Calcium 9.5 (8.5-10.1) mg/dL Total Bilirubin 0.4 (0.2-1.0) mg/dL AST 42 H (15-37) U/L ALT 52 (14-59) U/L Alkaline Phosphatase 245 H (46-116) U/L Troponin I < 0.017 (0.00-0.056) ng/mL NT-Pro-B Natriuret Pep 703 H (0-450) pg/mL Total Protein 6.9 (6.4-8.2) g/dl Albumin 2.3 L (3.4-5.0) g/dl Globulin 4.6 gm/dL Albumin/Globulin Ratio 0.5 L (1-2) //21 Range/Units 10:20 WBC (3.98-10.04) K/mm3 RBC (3.98-5.22) M/mm3 Hgb (11.2-15.7) gm/dl Hct (34.1-44.9) % MCV (79.4-94.8) fl MCH (25.6-32.2) pg MCHC (32.2-35.5) g/dl RDW Std Deviation (36.4-46.3) fL Plt Count (182-369) K/mm3 MPV (9.4-12.3) fl Neut % (Auto) (34.0-71.1) % Lymph % (Auto) (19.3-51.7) % Randall % (Auto) (4.7-12.5) % Eos % (Auto) (0.7-5.8) Baso % (Auto) (0.1-1.2) % Neut # (Auto) (1.56-6.13) K/mm3 Lymph # (Auto) (1.18-3.74) K/mm3 Randall # (Auto) (0.24-0.36) K/mm3 Eos # (Auto) (0.04-0.36) K/mm3 Baso # (Auto) (0.01-0.08) K/mm3 Puncture Site Rt radial ABG pH 7.42 (7.35-7.45) ABG pCO2 48.8 H (35.0-45.0) mmHg ABG pO2 87.0 (80.0-100.0) mmHg ABG HCO3 30.8 H (22.0-26.0) meq/L ABG O2 Saturation 97.0 (96.0-97.0) % ABG Base Excess 6.0 H (-2-2.0) Marvin Test Positive O2 Delivery Device Nasal cannula Oxygen Flow Rate 4.0 Sodium (136-145) mEq/L Potassium (3.5-5.1) mEq/L Chloride (98-107) mEq/L Carbon Dioxide (21-32) mEq/L Anion Gap (5-15) BUN (7-18) mg/dL Creatinine (0.55-1.02) mg/dL Est Cr Clr Drug Dosing Estimated GFR (MDRD) (>60) mL/min BUN/Creatinine Ratio (14-18) Glucose (70-99) mg/dL Calcium (8.5-10.1) mg/dL Total Bilirubin (0.2-1.0) mg/dL AST (15-37) U/L ALT (14-59) U/L Alkaline Phosphatase (46-116) U/L Troponin I (0.00-0.056) ng/mL NT-Pro-B Natriuret Pep (0-450) pg/mL Total Protein (6.4-8.2) g/dl Albumin (3.4-5.0) g/dl Globulin gm/dL Albumin/Globulin Ratio (1-2) Meds: Medications Discontinued Medications Generic Name Dose Route Start Last Admin Trade Name Freq PRN Reason Stop Dose Admin Doxycycline Hyclate 100 mg 03/11/21 14:03 Doxycycline 100 Mg Cap PO 03/11/21 14:04 ONETIME ONE - Re-Assessments/Exams Free Text/Narrative Re-Assessment/Exam: 03/11/21 14:00 Labs show a minimally elevated white count of 12,800 her troponin is below our detectable limits less than 0.017 proBNP is slightly elevated at 703 she does not have an exam consistent with heart failure. Chest x-ray shows increased density within the right lung base compared to prior chest x-ray done on the fifth of this month this may represent pneumonia. She does have a moist cough w e will start her on doxycycline. Her O2 saturation is done very well here despite backing her oxygen off her CO2 was found to be quite elevated 48 on her ABGs PO2 was 88. The patient has done well on 2 to 2-1/2 L at rest we will send her home on 2 L increased to 3K liters with activity then back to 2 L with rest. Departure - Departure Time of Disposition: 14:02 Disposition: DC/Tfer to SNF 03 Clinical Impression: Hypoxia, CO2 retention Pneumonia Qualifiers: Pneumonia type: due to unspecified organism Laterality: bilateral Lung location: lower lobe of lung Qualified Code(s): J18.9 - Pneumonia, unspecified organism - Discharge Information Prescriptions: Doxycycline [Vibramycin] 100 mg PO BID #14 cap Referrals: Deonte Candelario MD [Primary Care Provider] - Forms: ED Department Discharge Additional Instructions: Return to the emergency room with any questions problems or worsening symptoms. The patient is a CO2 retainer therefore her breathing will decrease with too much oxygen. Her oxygen supplementation should be 2 L at rest 3 L with activity then back to 2 L at rest. She has a little bit of a pneumonia she was given her first dose of doxycycline here in the emergency room start the prescription late this evening and then twice daily until gone starting tomorrow. If the patient is not on iron supplementation it needs to be given either 3 hours before or 3 hours after the doxycycline. Sepsis Event Note (ED) - Evaluation Sepsis Screening Result: No Definite Risk - Focused Exam Vital Signs: Vital Signs Temp Pulse Resp BP Pulse Ox 03/11/21 10:55 84 20 115/58 L 99 03/11/21 09:30 36.6 C 87 20 70/33 L 89 L
[2021-03-11 10:56] VITALS: BP 115/58; PULSE 84
--- NOTE | 2021-03-11 12:15 | CR ---
Chest: Portable view of the chest was obtained. Comparison: Prior chest x-ray of 02/18/21. Increased density is seen within the right lung base which is slightly more prominent than on prior exam. Small right-sided pleural effusion is possible. Mild density within the left lung base is seen which is stable. Perihilar markings are increased which are stable. Heart size and mediastinum are unchanged. Bony structures are also unchanged. Impression: 1. Slight increased density within the right lung base from prior chest x-ray. This may represent increased aspiration or increased pneumonia. 2. Possible right-sided small pleural effusion. 3. Other portions of the chest are stable. Diagnostic code #3
[2021-03-11] MEDS ORDERED: Doxycycline 100 MG Cap PO ONE (14:03)
== END 2021-03-11 15:00 ==
LOC: JD.ED 09:08
DX: R09.02 Hypoxemia (principal); E87.2 Acidosis; I50.9 Heart failure, unspecified; J44.9 Chronic obstructive pulmonary disease, unspecified; N18.9 Chronic kidney disease, unspecified; Z88.1 Allergy status to other antibiotic agents; Z88.8 Allergy status to other drugs, medicaments and biological substances; Z91.018 Allergy to other foods; Z79.899 Other long term (current) drug therapy; Z91.013 Allergy to seafood; Z86.73 Personal history of transient ischemic attack (TIA), and cerebral infarction without residual deficits
CPT/HCPCS: 36415; 36600; 71045; 80053; 82803; 83880; 84484; 85025; 93005; 99284; A9270